=== PATIENT | male | born 1965 | race Caucasian/White ===

== ENCOUNTER → 2016-07-07 | Outpatient (REF) | payer MEDICARE, MEDICAID ==
[~2016-07-07] MED LIST: /ADVA50050 INH; /CELE20CA PO; /HCTZ25TA PO; /TIOT18INH INH; ADV500INH INH; ALBU17IN INH; AMIT25TA PO; AMIT25TA10 PO; ASPI81TA85 PO; ASTE0.15; CALC1TAB9 PO; CALC600T7 PO; COMBVENT INH; FLON0.05; HYDR25TA6 OR; LISI-538 PO; LISI20TA5 OR; LOPR50TA OR; LYRI75CA PO; MAGN1TAB25 PO; MAXA10TA15 PO; MAXA10TA20 PO; METF500T PO; METO25TA2 PO; METO50TA2 PO; MUCINEX PO; NIAS500T2 OR; OMEP40CA2 PO; OXYC1TAB23 PO; PRED10TA2 OR; PRIL20CA PO; ROBITUSSIN AC OR; SERT-138 PO; SIMV10TA2 OR; SIMV10TA2 PO; SPIR1CAP INH; TYLE325T5 PO; VENTAER IN; VICO5TAB16 PO; VITA100037 PO; VITA500T53 PO; VITAMIN D PO; VITMTA PO; WELL75TA PO; ZEST20TA8 PO; calcium OR; niaspan PO; spiriva; spiriva INH
== END ==
LOC: M SFHCPLAZ 16:18
PROVIDERS: ATTEND Family Medicine
DX: Z13.29 Encounter for screening for other suspected endocrine disorder (principal); Z79.899 Other long term (current) drug therapy

== ENCOUNTER → 2016-10-20 | Outpatient (REF) | payer MEDICARE, MEDICAID ==
[~2016-10-20] MED LIST changes: -METO50TA2 PO; +METO50TA7 PO; +TIZA2CAP3 PO
== END ==
LOC: M SFHCPLAZ 11:17
PROVIDERS: ATTEND Family Medicine
DX: D22.5 Melanocytic nevi of trunk (principal)

== ENCOUNTER 2016-11-17 07:00 | Outpatient (RCR) | payer MEDICARE ==
[~2016-11-17 07:00] MED LIST changes: -TIZA2CAP3 PO
[2016-11-23] MEDS ORDERED: TIZA2CAP3 PO (04:51)
[2016-11-23] MEDS ORDERED: OXYC1TAB23 PO (08:03)
== END 2016-11-22 ==
LOC: M PT 07:00
PROVIDERS: ATTEND Family Medicine
DX: Z51.89 Encounter for other specified aftercare (principal); M75.02 Adhesive capsulitis of left shoulder
CPT/HCPCS: 97110; 97140; 97162; G8984; G8985

== ENCOUNTER 2016-11-23 04:31 | Emergency (ER) | payer MEDICARE, OTHER ==
[~2016-11-23] VITALS: Ht 182.9 cm; Wt 112.3 kg
[2016-11-23 04:38] VITALS: BP 147/84
[2016-11-23] MEDS ORDERED: TIZA2CAP3 PO (04:51)
[2016-11-23] MEDS ORDERED: PERCOCET 5MG/325MG TAB PO ONE (06:45)
--- NOTE | 2016-11-23 07:40 | REPUSA ---
CLINICAL HISTORY: Neck pain. TECHNIQUE: Multiple axial images were obtained through the cervical spine. Images were also reconstru cted in coronal and sagittal planes. The study was performed without IV contrast. COMMENTS: There is no fracture or spondylolisthesis visualized. The paraspinal soft tissues are unremarkable. T here are no lytic or blastic lesions. Straightening of cervical lordosis is seen, suggesting muscular spasm. There is evidence of moderate multilevel disk disease, demonstrated by moderate osteophytosis and endplate sclerosis. Moderate multilevel degenerative disc disease more prominent at C4-C5, C5-C6 and C6-C7 levels. IMPRESSION: 1. No fracture or spondylolisthesis. 2. Straightening of cervical lordosis is seen, suggesting muscular spasm. 3. Multilevel spondylosis. Thank you for your kind referral of this patient.
[2016-11-23] MEDS ORDERED: OXYC1TAB23 PO (08:03)
--- NOTE | 2016-11-23 09:27 | REP ---
LEFT SHOULDER, THREE VIEWS: HISTORY: Pain. There is no acute fracture or dislocation. There is narrowing of the acromioclavicular joint with associated osteophyte formation. IMPRESSION: Degenerative change as described above. Signed by Jorge Salinas MD 11/23/2016 09:28 A
== END 2016-11-23 08:16 | disposition home or self-care (01) ==
LOC: M ED 04:31
DX: M62.830 Muscle spasm of back (principal); I10 Essential (primary) hypertension; F41.9 Anxiety disorder, unspecified; F33.9 Major depressive disorder, recurrent, unspecified; Z98.84 Bariatric surgery status; Z79.899 Other long term (current) drug therapy; Z79.51 Long term (current) use of inhaled steroids; Z88.5 Allergy status to narcotic agent; Z88.8 Allergy status to other drugs, medicaments and biological substances; F17.210 Nicotine dependence, cigarettes, uncomplicated
CPT/HCPCS: 72125; 73030; 96372; 99282; J3360

== ENCOUNTER 2017-01-02 20:58 | Inpatient (IN) | payer MEDICARE, OTHER ==
[~2017-01-02] VITALS: Ht 182.9 cm; Wt 115.4 kg
[2017-01-02] MEDS: ADVAIR HFA 230/21MCG INHALER INH SCH ×2 (20:00→21:00)
[~2017-01-02 20:58] MED LIST changes: +TIZA2CAP3 PO
[2017-01-02] MEDS ORDERED: KETOROLAC 30 MG/ML VIAL (J1885) IV ONE (22:00)
[2017-01-02 22:13] LABS: BASO # 0.1 10^3/uL (0.0-0.2); BASO % 0.8 % (0.0-1.0); EOS # 0.4 10^3/uL (0.0-0.50); EOS % 3.9 % (0.0-3.0); IMMATURE GRANULOCYTE % 0.5 % (0-0); LYMPH # 2.2 10^3/uL (1.5-4.5); MEAN CORPUSCULAR HEMOGLOBIN 31.7 pg (27.0-33.0); MONO # 0.8 10^3/uL (0.0-0.8); MONO % 7.9 % (0.0-5.0); NEUTROPHILS # 6.1 10^3/uL (1.8-7.7); NEUTROPHILS % 63.9 % (36.0-66.0); PLATELET COUNT, AUTOMATED 314 10^3/uL (150-450); RED CELL DISTRIBUTION WIDTH 13.2 % (11.5-14.5); WHITE BLOOD COUNT 9.6 10^3/uL (4.0-10.0)
[2017-01-02 22:17] LABS: INR 0.91
[2017-01-02 22:26] LABS: ANION GAP 7 MEQ/L (8-16); BLOOD UREA NITROGEN 7 MG/DL (7-18); CALCIUM LEVEL 8.8 MG/DL (8.5-10.1); CARBON DIOXIDE LEVEL 28 MEQ/L (21-32); CHLORIDE LEVEL 108 MEQ/L (98-107); CREATININE FOR GFR 0.64 MG/DL (0.70-1.30); GLOMERULAR FILTRATION RATE > 60.0 (>56); GLUCOSE, FASTING 85 MG/DL (70-105); POTASSIUM SERUM 3.6 MEQ/L (3.5-5.1); SODIUM LEVEL 143 MEQ/L (136-145)
[2017-01-02] MEDS ORDERED: ISOVUE-370 76% 100ML VIAL (Q9967) As Ordered ONE (22:34)
[2017-01-02] MEDS ORDERED: APIXABAN 5 MG TAB (ELIQUIS) PO ONE (23:15)
--- NOTE | 2017-01-02 23:20 | REPUSA ---
CT angiogram of the chest Clinical statement: Chest pain and shortness of breath. Technique: Multiple axial CT images were obtained from the thoracic inlet through the upper abdomen a fter a bolus administration of nonionic intravenous contrast. Coronal and sagittal reconstructions we re also obtained. Comparison: 12/22/2015. Findings: The pulmonary arteries are well-opacified with contrast. There is an intraluminal filling d efect in the right upper lobe pulmonary. The thoracic aorta is unremarkable. Thyroid gland is within normal limits. There is no thoracic lymphadenopathy. There is a moderate left-sided pleural effusion with left lower lobe infiltrate. Limited imaging of the upper abdomen is unremarkable. There are no s uspicious osseous lesions. Impression: 1. Subsegmental embolism in the right upper lobe pulmonary artery. 2. Moderate sized left lower lobe infiltrate and left lower lobe atelectasis. ER physician was notified of these findings at 11:10 PM on 01/02/2017.
[2017-01-02] MEDS ORDERED: MORPHINE 2 MG/ML 1ML SYRINGE IV ONE (23:30)
[2017-01-02] MEDS ORDERED: CALCTAB41 PO (23:32)
[2017-01-02] MEDS ORDERED: AMIT50TA PO (23:32)
[2017-01-02] MEDS ORDERED: ZANA4TAB PO (23:32)
[2017-01-02] MEDS ORDERED: LYRI200C PO (23:32)
[2017-01-03] VITALS (8 sets, daily range): BP systolic 114–149; BP diastolic 67–91
[2017-01-03 00:17] LABS: ABG HCO3 26.1 MEQ/L (22.0-26.0); ABG PARTIAL PRESSURE CO2 43.1 mmHg (35.0-45.0); ABG PARTIAL PRESSURE O2 68.2 mmHg (75.0-100.0); ABG STANDARD HCO3 25.3 MEQ/L (22.0-26.0); ABG TOTAL CO2 27.4 MEQ/L (22.0-29.0)
[2017-01-03] MEDS ORDERED: MAGNESIUM OXIDE 400 MG TAB (MAG-OX) PO STA (00:45)
[2017-01-03] MEDS ORDERED: ACETAMINOPHEN TAB 650MG DOSE (2X325MG) PO PRN (00:45)
[2017-01-03] MEDS ORDERED: tiZANidine 4 MG TAB PO PRN (00:45)
[2017-01-03] MEDS ORDERED: RIZATRIPTAN MLT 10 MG TAB PO PRN (00:45)
[2017-01-03] MEDS ORDERED: ONDANSETRON 4MG/2ML VIAL (J2405) IV PRN (00:45)
[2017-01-03] MEDS: AMITRIPTYLINE 50 MG TAB PO SCH ×2 (01:57→21:19)
[2017-01-03] MEDS: SIMVASTATIN 10 MG TAB PO SCH ×2 (01:57→21:20)
[2017-01-03] MEDS: LISINOPRIL 20 MG TAB PO SCH ×3 (01:57→21:19)
[2017-01-03] MEDS: CALCIUM/VITAMIN D 500 MG TAB PO SCH ×3 (01:58→21:19)
[2017-01-03] MEDS: CYANOCOBALAMIN 500 MCG TAB PO SCH ×2 (01:58→21:19)
[2017-01-03] MEDS: PREGABALIN 100 MG CAP (LYRICA) PO SCH ×3 (01:58→21:19)
[2017-01-03] MEDS: FLUTICASONE PROP 0.05% NASAL SPRAY 16 GM (FLONASE) SCH ×3 (03:27→21:21)
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
--- NOTE | 2017-01-03 07:22 | ECGEPIP ---
Stationary ECG Study [facility] - ED Test Date: 2017-01-02 Pat Name: GIACOMO MICHEL Department: Room: [place] [address] Gender: M Web Editor: : 1965 Requested By: JURGEN CRAMER Order Number: [id number] Reading MD: Jesse Lubin Measurements Intervals [place] Rate: 69 P: 45 KS: 182 QRS: 46 QRSD: 102 T: 42 QT: 360 QTc: 387 Interpretive Statements SINUS RHYTHM SIMILAR TO 12/23/15 Electronically Signed On 01-03-2017 7:22:33 EST by Jesse Lubin
[2017-01-03] MEDS ORDERED: ELIQ5TAB PO (07:26)
--- NOTE | 2017-01-03 07:26 | REP ---
Portable chest, 01/02/2017, 09:49 p.m., two views, and inspiration and expiration: Comparison is 12/27/2015. There is a left pleural effusion, not present previously. There is no pneumothorax. Lung ramires otherwise clear. Cardiac size is normal. The nino, mediastinum, bony thorax are unremarkable. Impression: Left pleural effusion. No pneumothorax. Signed by Mustapha Juarez MD 01/03/2017 07:17 A
[2017-01-03] MEDS: ADVAIR HFA 230/21MCG INHALER INH SCH ×2 (07:59→20:22)
[2017-01-03] MEDS: IPRATROPIUM 0.5MG/ALBUTEROL 2.5MG INH SOL UD 3ML (DUONEB)(J7620) NEB SCH ×3 (08:00→20:00)
[2017-01-03] MEDS: MULTIVITAMINS/MINERALS THERAP 1 TAB PO SCH (09:23)
[2017-01-03] MEDS: APIXABAN 5 MG TAB (ELIQUIS) PO SCH ×2 (09:24→21:19)
[2017-01-03] MEDS: OMEPRAZOLE 20 MG CAP PO SCH (09:24)
[2017-01-03] MEDS: LORATADINE 10 MG TAB PO SCH (09:24)
--- NOTE | 2017-01-03 09:39 | REP ---
BILATERAL LOWER EXTREMITY DUPLEX VEINS: HISTORY: Right lower leg swelling. RIGHT LOWER EXTREMITY: There are filling defects in the deep venous system. The deep venous system is patent. IMPRESSION: There is no deep venous thrombosis. LEFT LOWER EXTREMITY: There are no filling defects in the deep venous system. The deep venous system is patent. IMPRESSION: There is no deep venous thrombosis. Signed by Jorge Salinas MD 01/03/2017 10:30 A
[2017-01-03] MEDS ORDERED: IPRATROPIUM 0.5MG/ALBUTEROL 2.5MG INH SOL UD 3ML (DUONEB)(J7620) NEB PRN (10:00)
[2017-01-03] MEDS: TIOTROPIUM INHALER/CAPSULE (SPIRIVA) INH SCH (10:09)
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
[2017-01-03] MEDS: guaiFENesin ER 600 MG TAB PO SCH ×2 (11:22→21:19)
[2017-01-03] MEDS: KETOROLAC 30 MG/ML VIAL (J1885) IV PRN ×2 (16:33→21:22)
[2017-01-04] MEDS: IPRATROPIUM 0.5MG/ALBUTEROL 2.5MG INH SOL UD 3ML (DUONEB)(J7620) NEB SCH ×2 (01:33→07:07)
[2017-01-04 05:04] VITALS: BP 139/78
[2017-01-04 05:13] LABS: MEAN CORPUSCULAR HEMOGLOBIN 31.8 pg (27.0-33.0); MEAN CORPUSCULAR HGB CONC 33.1 g/dl (32.0-36.5); MEAN CORPUSCULAR VOLUME 95.9 fl (80.0-96.0); PLATELET COUNT, AUTOMATED 252 10^3/uL (150-450); RED CELL DISTRIBUTION WIDTH 13.2 % (11.5-14.5); WHITE BLOOD COUNT 7.2 10^3/uL (4.0-10.0)
[2017-01-04 05:27] LABS: ANION GAP 6 MEQ/L (8-16); BLOOD UREA NITROGEN 12 MG/DL (7-18); CALCIUM LEVEL 8.6 MG/DL (8.5-10.1); CARBON DIOXIDE LEVEL 29 MEQ/L (21-32); CHLORIDE LEVEL 108 MEQ/L (98-107); CREATININE FOR GFR 0.78 MG/DL (0.70-1.30); GLOMERULAR FILTRATION RATE > 60.0 (>56); GLUCOSE, FASTING 83 MG/DL (70-105); POTASSIUM SERUM 3.5 MEQ/L (3.5-5.1); SODIUM LEVEL 143 MEQ/L (136-145)
[2017-01-04] MEDS: KETOROLAC 30 MG/ML VIAL (J1885) IV PRN (06:02)
[2017-01-04] MEDS: TIOTROPIUM INHALER/CAPSULE (SPIRIVA) INH SCH (07:07)
[2017-01-04] MEDS: ADVAIR HFA 230/21MCG INHALER INH SCH (07:07)
[2017-01-04] MEDS ORDERED: POTASSIUM CHLORIDE 10 MEQ SR TABLET PO ONE (07:30)
[2017-01-04] MEDS: PREGABALIN 100 MG CAP (LYRICA) PO SCH (07:59)
[2017-01-04] MEDS: MULTIVITAMINS/MINERALS THERAP 1 TAB PO SCH (07:59)
[2017-01-04 08:00] VITALS: BP 146/74
[2017-01-04] MEDS: APIXABAN 5 MG TAB (ELIQUIS) PO SCH (08:00)
[2017-01-04] MEDS: guaiFENesin ER 600 MG TAB PO SCH (08:00)
[2017-01-04] MEDS: LISINOPRIL 20 MG TAB PO SCH (08:00)
[2017-01-04] MEDS: CALCIUM/VITAMIN D 500 MG TAB PO SCH (08:00)
[2017-01-04] MEDS: OMEPRAZOLE 20 MG CAP PO SCH (08:00)
[2017-01-04] MEDS: LORATADINE 10 MG TAB PO SCH (08:01)
[2017-01-04] MEDS: FLUTICASONE PROP 0.05% NASAL SPRAY 16 GM (FLONASE) SCH (08:01)
[2017-01-04] MEDS ORDERED: FLUTISP (09:00)
[2017-01-04] MEDS ORDERED: CLAR1TAB2 PO (09:00)
[2017-01-04] MEDS ORDERED: MUCI600T37 PO (09:00)
[2017-01-04] MEDS ORDERED: KETO10TAB PO (09:00)
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
== END 2017-01-04 11:06 | disposition home or self-care (01) | DRG 176 ==
LOC: M ED 20:58 → M ED INP 01-03 00:43 → M PCU 01-03 02:23
PROVIDERS: ATTEND Hospitalist
DX: I26.99 Other pulmonary embolism without acute cor pulmonale (principal); J44.9 Chronic obstructive pulmonary disease, unspecified; E11.9 Type 2 diabetes mellitus without complications; F32.9 Major depressive disorder, single episode, unspecified; F41.9 Anxiety disorder, unspecified; G47.33 Obstructive sleep apnea (adult) (pediatric); I10 Essential (primary) hypertension; M19.90 Unspecified osteoarthritis, unspecified site; Z79.899 Other long term (current) drug therapy; Z88.5 Allergy status to narcotic agent; Z88.8 Allergy status to other drugs, medicaments and biological substances; E66.9 Obesity, unspecified; F17.200 Nicotine dependence, unspecified, uncomplicated

== ENCOUNTER → 2017-01-09 | Outpatient (CLI) | payer OTHER ==
[~2017-01-09] MED LIST changes: +AMIT50TA PO; +CALCTAB41 PO; +CLAR1TAB2 PO; +ELIQ5TAB PO; +FLUTISP; +KETO10TAB PO; +LYRI200C PO; +MUCI600T37 PO; +ZANA4TAB PO
--- NOTE | 2017-01-09 17:23 | REP ---
MRI CERVICAL SPINE WITHOUT CONTRAST: HISTORY: Neck pain. COMPARISON: 12/24/2015 A disc bulge is present at the C3-4 level. There is minimal effacement of the thecal sac without spinal cord compression. The C3 neural foramina are patent. A disc bulge and small left paracentral disc protrusion with associated osteophyte formation are present at the C4-5 level. There is minimal spinal cord compression. Bilateral uncinate process hypertrophy is present. This produces moderate narrowing of the C4 neural foramina. A disc bulge with associated osteophyte formation is present at the C5-6 level. There is moderate effacement of the thecal sac without spinal cord compression. Bilateral uncinate process hypertrophy is present. This produces mild narrowing of the C5 neural foramina. A disc bulge with associated osteophyte formation is present at the C6-7 level. There is moderate effacement of the thecal sac without spinal cord compression. Bilateral uncinate process hypertrophy is present. This produces minimal and mild narrowing of the right and left C6 neural foramina respectively. A disc bulge with associated osteophyte formation is present at the C7-T1 level. There is minimal effacement of the thecal sac without spinal cord compression. Bilateral uncinate process hypertrophy is present. This produces mild and moderate narrowing of the right and left C7 neural foramina respectively. Disc bulges are present at the T12 and T2-3 levels. There is minimal effacement of the thecal sac without spinal cord compression. The neural foramina are patent on sagittal images. There is no other disc bulge or herniation. The remaining neural foramina are patent. The spinal cord is normal in signal intensity. The C4-5 through C7-T1 intervertebral discs are decreased in height consistent with disc degeneration. Increased signal intensity on T2-weighted images is present in the endplates of the C4 through T1 vertebral bodies. This represents degenerative change. IMPRESSION: There is cervical spondylosis at the C3-4 through C7-T1 levels, most significant at the C4-5 level where there is minimal spinal cord compression. The previously seen spinal cord compression at the C5-6 and C6-7 levels is not seen in the present examination. Unreviewed
== END ==
LOC: M PLARAD 14:29
PROVIDERS: ATTEND Family Medicine
DX: G89.21 Chronic pain due to trauma (principal); M75.02 Adhesive capsulitis of left shoulder; V89.2XXD Person injured in unspecified motor-vehicle accident, traffic, subsequent encounter; M47.12 Other spondylosis with myelopathy, cervical region; M47.13 Other spondylosis with myelopathy, cervicothoracic region; M50.21 Other cervical disc displacement, high cervical region; M50.221 Other cervical disc displacement at C4-C5 level; M50.223 Other cervical disc displacement at C6-C7 level

== ENCOUNTER → 2017-03-02 | Outpatient (CLI) | payer OTHER, MEDICARE | LOC: M RAD 12:57 | DX: M25.512 Pain in left shoulder (principal) ==

== ENCOUNTER 2017-06-12 19:33 | Emergency (ER) | payer MEDICARE, OTHER ==
[2017-06-12] MEDS: OXYCODONE/APAP 5MG/325MG(BULK FOR ED) 1 TABLET PO (21:34)
[2017-06-12] MEDS: AUGMENTIN 875 MG TAB PO (21:34)
== END 2017-06-12 21:42 | disposition home or self-care (01) ==
LOC: M ED 19:33
DX: K04.7 Periapical abscess without sinus (principal); I10 Essential (primary) hypertension; Z98.84 Bariatric surgery status; J44.9 Chronic obstructive pulmonary disease, unspecified; F17.200 Nicotine dependence, unspecified, uncomplicated; Z79.899 Other long term (current) drug therapy; Z88.5 Allergy status to narcotic agent; Z91.018 Allergy to other foods
CPT/HCPCS: 99282

== ENCOUNTER 2017-06-15 11:54 | Day surgery (SDC) | payer OTHER, MEDICARE ==
[2017-06-15] MEDS ORDERED: ROPIvacaine 0.5% 30 ML INJECTION (J2795 PER 1MG) (11:55)
[2017-06-15] MEDS ORDERED: LIDOCAINE 1% MDV 20ML VIAL (11:55)
[2017-06-15] MEDS ORDERED: dexameTHASONE 10 MG/1 ML VIAL PRES.FREE (J1100) (11:55)
[2017-06-15] MEDS ORDERED: LR 1,000 ML IV ×3 (12:00→16:45)
[2017-06-15] MEDS ORDERED: LIDOCAINE 1% MDV 20ML VIAL SQ (12:15)
[2017-06-15 12:32] LABS: BEDSIDE GLUCOSE 89 MG/DL (70-105)
[2017-06-15] MEDS ORDERED: MIDAZOLAM INJ 2 MG/2 ML VIAL (J2250) As Ordered ×2 (12:56→13:36)
[2017-06-15] MEDS ORDERED: fentaNYL 100 MCG/2 ML INJECTION (J3010) As Ordered (12:56)
[2017-06-15] MEDS: MIDAZOLAM INJ 2 MG/2 ML VIAL (J2250) IV (13:27)
[2017-06-15] MEDS: fentaNYL 100 MCG/2 ML INJECTION (J3010) IV (13:27)
[2017-06-15] MEDS ORDERED: LIDOCAINE 2% INJ 100 MG/5 ML SDV (FOR ANES.) As Ordered (13:35)
[2017-06-15] MEDS ORDERED: PROPOFOL 200 MG/20 ML VIAL As Ordered ×2 (13:35→15:39)
[2017-06-15] MEDS ORDERED: KETOROLAC 60 MG/2 ML VIAL (J1885) As Ordered (13:35)
[2017-06-15] MEDS ORDERED: dexameTHASONE 4 MG/ML 1ML VIAL (J1100) As Ordered (13:35)
[2017-06-15] MEDS ORDERED: ROCURONIUM BROMIDE 50 MG/5 ML VIAL As Ordered (13:35)
[2017-06-15] MEDS ORDERED: ONDANSETRON 4MG/2ML VIAL (J2405) As Ordered (13:35)
[2017-06-15] MEDS ORDERED: fentaNYL 250 MCG/5 ML INJECTION (J3010) As Ordered (13:36)
[2017-06-15] MEDS: EPINEPHrine 1MG/ML INJ 30ML MD-VIAL As Ordered (15:11)
[2017-06-15] MEDS ORDERED: ONDANSETRON 4MG/2ML VIAL (J2405) IV (16:30)
[2017-06-15] MEDS ORDERED: fentaNYL 100 MCG/2 ML INJECTION (J3010) IV (16:30)
[2017-06-15] MEDS ORDERED: HYDROmorphone HCL 1 MG/ML SYRINGE (J1170) IV (16:30)
[2017-06-15] MEDS ORDERED: PERCOCET 5MG/325MG TAB PO (16:30)
== END 2017-06-15 18:33 | disposition home or self-care (01) ==
LOC: M SDC 11:54
DX: S46.012A Strain of muscle(s) and tendon(s) of the rotator cuff of left shoulder, initial encounter (principal); S43.492A Other sprain of left shoulder joint, initial encounter; M75.42 Impingement syndrome of left shoulder; G47.33 Obstructive sleep apnea (adult) (pediatric); I10 Essential (primary) hypertension; E78.5 Hyperlipidemia, unspecified; M12.9 Arthropathy, unspecified; F41.9 Anxiety disorder, unspecified; F32.9 Major depressive disorder, single episode, unspecified; G62.9 Polyneuropathy, unspecified; F17.219 Nicotine dependence, cigarettes, with unspecified nicotine-induced disorders; E66.9 Obesity, unspecified; Z68.36 Body mass index [BMI] 36.0-36.9, adult; M54.2 Cervicalgia; M54.5 Low back pain; J44.9 Chronic obstructive pulmonary disease, unspecified; G43.909 Migraine, unspecified, not intractable, without status migrainosus; R06.83 Snoring; Z88.5 Allergy status to narcotic agent; Z88.8 Allergy status to other drugs, medicaments and biological substances; Z79.899 Other long term (current) drug therapy; Z95.818 Presence of other cardiac implants and grafts; Z85.9 Personal history of malignant neoplasm, unspecified; Z86.711 Personal history of pulmonary embolism; Z98.84 Bariatric surgery status; Y99.8 Other external cause status; V89.2XXA Person injured in unspecified motor-vehicle accident, traffic, initial encounter; Y93.89 Activity, other specified; Y92.89 Other specified places as the place of occurrence of the external cause
CPT/HCPCS: 29827

== ENCOUNTER → 2017-07-17 | Outpatient (REF) | payer MEDICARE | LOC: M SFHCPLAZ 12:02 | DX: Z98.84 Bariatric surgery status (principal); Z13.1 Encounter for screening for diabetes mellitus; Z53.8 Procedure and treatment not carried out for other reasons ==

== ENCOUNTER → 2017-07-28 | Outpatient (REF) | payer MEDICARE ==
[2017-07-28 10:26] LABS: HEMATOCRIT 39.6 % (42.0-52.0); HEMOGLOBIN 12.9 g/dl (13.5-17.5); MEAN CORPUSCULAR HEMOGLOBIN 31.3 pg (27.0-33.0); MEAN CORPUSCULAR HGB CONC 32.6 g/dl (32.0-36.5); MEAN CORPUSCULAR VOLUME 96.1 fl (80.0-96.0); PLATELET COUNT, AUTOMATED 266 10^3/uL (150-450); RED BLOOD COUNT 4.12 10^6/uL (4.30-6.10); RED CELL DISTRIBUTION WIDTH 14.9 % (11.5-14.5); WHITE BLOOD COUNT 14.9 10^3/uL (4.0-10.0)
[2017-07-28 11:15] LABS: ALBUMIN 3.2 GM/DL (3.2-5.2); ALKALINE PHOSPHATASE 82 U/L (45-117); ALT/SGPT 23 U/L (12-78); ANION GAP 7 MEQ/L (8-16); AST/SGOT 21 U/L (7-37); BILIRUBIN,TOTAL 0.6 MG/DL (0.2-1.0); BLOOD UREA NITROGEN 17 MG/DL (7-18); CALCIUM LEVEL 8.4 MG/DL (8.5-10.1); CARBON DIOXIDE LEVEL 27 MEQ/L (21-32); CHLORIDE LEVEL 106 MEQ/L (98-107); GLOMERULAR FILTRATION RATE > 60.0 (>56); GLUCOSE, FASTING 82 MG/DL (70-100); SODIUM LEVEL 140 MEQ/L (136-145); TOTAL PROTEIN 6.4 GM/DL (6.4-8.2)
[2017-07-28 11:24] LABS: ESTIMATED AVERAGE GLUCOSE 97 MG/DL (60-110)
== END ==
LOC: M SFHCPLAZ 08:31
DX: Z98.84 Bariatric surgery status (principal); Z13.1 Encounter for screening for diabetes mellitus
CPT/HCPCS: 80053

== ENCOUNTER → 2017-09-18 | Outpatient (REF) | payer MEDICARE ==
[2017-09-18 13:27] LABS: HEMATOCRIT 43.1 % (42.0-52.0); HEMOGLOBIN 14.3 g/dl (13.5-17.5); MEAN CORPUSCULAR HEMOGLOBIN 31.7 pg (27.0-33.0); MEAN CORPUSCULAR HGB CONC 33.2 g/dl (32.0-36.5); MEAN CORPUSCULAR VOLUME 95.6 fl (80.0-96.0); PLATELET COUNT, AUTOMATED 295 10^3/uL (150-450); RED BLOOD COUNT 4.51 10^6/uL (4.30-6.10); RED CELL DISTRIBUTION WIDTH 14.6 % (11.5-14.5); WHITE BLOOD COUNT 7.7 10^3/uL (4.0-10.0)
[2017-09-18 14:13] LABS: FOLATE 13.7 NG/ML; VITAMIN B12 LEVEL > 2000 PG/ML
[2017-09-18 14:14] LABS: FERRITIN 128 NG/ML (26-388); IRON (FE) 85 UG/DL (65-175); PERCENT SATURATION 25.2 % (19.7-50.0); TOTAL IRON BINDING CAPACITY 337 UG/DL (250-450)
== END ==
LOC: M SFHCPLAZ 11:12
DX: D64.9 Anemia, unspecified (principal)
CPT/HCPCS: 82746

== ENCOUNTER 2018-01-03 21:25 | Emergency (ER) | payer MEDICARE ==
[2018-01-03] MEDS: NS 1,000 ML IV (23:09)
[2018-01-03 23:13] LABS: BASO # 0.1 10^3/uL (0.0-0.2); BASO % 0.6 % (0.0-1.0); EOS # 0.1 10^3/uL (0.0-0.50); EOS % 0.9 % (0.0-3.0); HEMATOCRIT 46.9 % (42.0-52.0); IMMATURE GRANULOCYTE % 0.5 % (0-3.0); LYMPH # 2.4 10^3/uL (1.5-4.5); LYMPH % 27.9 % (24.0-44.0); MEAN CORPUSCULAR HEMOGLOBIN 32.5 pg (27.0-33.0); MEAN CORPUSCULAR HGB CONC 34.1 g/dl (32.0-36.5); MEAN CORPUSCULAR VOLUME 95.1 fl (80.0-96.0); MONO # 0.9 10^3/uL (0.0-0.8); MONO % 10.4 % (0.0-5.0); NEUTROPHILS # 5.1 10^3/uL (1.8-7.7); NEUTROPHILS % 59.7 % (36.0-66.0); PLATELET COUNT, AUTOMATED 294 10^3/uL (150-450); RED BLOOD COUNT 4.93 10^6/uL (4.30-6.10); RED CELL DISTRIBUTION WIDTH 14.6 % (11.5-14.5); WHITE BLOOD COUNT 8.5 10^3/uL (4.0-10.0)
[2018-01-03 23:25] LABS: APPEARANCE, URINE CLEAR (CLEAR); BACTERIA, URINE AUTO NEGATIVE (NEGATIVE); BILIRUBIN, URINE AUTO NEGATIVE (NEGATIVE); BLOOD, URINE BLOOD NEGATIVE (NEGATIVE); COLOR, URINE YELLOW (YELLOW); GLUCOSE, URINE (UA) AUTO NEGATIVE (NEGATIVE); KETONE, URINE AUTO NEGATIVE (NEGATIVE); LEUKOCYTE ESTERASE, URINE AUTO TRACE (NEGATIVE); MUCUS, URINE SMALL (NEGATIVE); NITRITE, URINE AUTO NEGATIVE (NEGATIVE); PROTEIN, URINE AUTO NEGATIVE (NEGATIVE); RBC, URINE AUTO 3 /HPF (0-3); SPECIFIC GRAVITY URINE AUTO 1.014 (1.002-1.035); SQUAMOUS EPITHELIAL CELL UR AU 1 /HPF (0-6); WBC, URINE AUTO 7 /HPF (0-3)
[2018-01-03] MEDS: ONDANSETRON 4MG/2ML VIAL (J2405) IV (23:31)
[2018-01-03] MEDS: PANTOPRAZOLE 40MG INJ (PROTONIX) (C9113) IV (23:31)
[2018-01-03] MEDS: GI COCKTAIL 50ML BTL(HYOSCYAMINE/MAALOX/LIDOCAINE VISCOUS)(1:3:1) PO (23:31)
[2018-01-03] MEDS: GASTROGRAFIN SOLUTION 30ML PO (23:42)
[2018-01-03] MEDS: IPRATROPIUM 0.5MG/ALBUTEROL 2.5MG INH SOL UD 3ML (DUONEB)(J7620) NEB (23:52)
[2018-01-03 23:57] LABS: ALBUMIN 3.8 GM/DL (3.2-5.2); ALBUMIN/GLOBULIN RATIO 0.97 (1.00-1.93); ALKALINE PHOSPHATASE 106 U/L (45-117); ALT/SGPT 32 U/L (12-78); ANION GAP 7 MEQ/L (8-16); AST/SGOT 24 U/L (7-37); BILIRUBIN,TOTAL 0.6 MG/DL (0.2-1.0); BLOOD UREA NITROGEN 5 MG/DL (7-18); CARBON DIOXIDE LEVEL 28 MEQ/L (21-32); CHLORIDE LEVEL 106 MEQ/L (98-107); CREATININE FOR GFR 0.75 MG/DL (0.70-1.30); GLOMERULAR FILTRATION RATE > 60.0 (>56); GLUCOSE, FASTING 103 MG/DL (70-100); LIPASE 102 U/L (73-393); POTASSIUM SERUM 3.6 MEQ/L (3.5-5.1); SODIUM LEVEL 141 MEQ/L (136-145); TOTAL PROTEIN 7.7 GM/DL (6.4-8.2)
[2018-01-04] MEDS: GASTROGRAFIN SOLUTION 30ML PO (00:22)
[2018-01-04 01:08] LABS: CPK CREATINE PHOSPHOKINASE 180 U/L (39-308); MB/CK RELATIVE INDEX 1.89 (< OR =4); NT-PRO BNP 110 PG/ML (<125); TROPONIN I < 0.02 NG/ML (< 0.10)
[2018-01-04] MEDS ORDERED: ISOVUE-370 76% 100ML VIAL (Q9967) As Ordered (01:09)
[2018-01-04] MEDS: IPRATROPIUM 0.5MG/ALBUTEROL 2.5MG INH SOL UD 3ML (DUONEB)(J7620) NEB (01:10)
[2018-01-04] MEDS: LevoFLOXacin 750 MG TABLET PO (02:15)
== END 2018-01-04 02:19 | disposition home or self-care (01) ==
LOC: M ED 01-04 02:19
DX: J40 Bronchitis, not specified as acute or chronic (principal); E11.9 Type 2 diabetes mellitus without complications; J44.9 Chronic obstructive pulmonary disease, unspecified; G62.9 Polyneuropathy, unspecified; Z98.84 Bariatric surgery status; Z79.899 Other long term (current) drug therapy; Z88.5 Allergy status to narcotic agent; Z91.018 Allergy to other foods; F17.210 Nicotine dependence, cigarettes, uncomplicated
CPT/HCPCS: C9113

== ENCOUNTER → 2018-04-26 | Outpatient (REF) | payer MEDICARE ==
[~2018-04-26] MED LIST changes: +AMIT10TA PO; +AUGM875T28 PO; +CLAR10CA3 PO; +DULO1CAP PO; +LEVA750T7 PO; +LISI10TA4 PO; +LYRI300C PO; +PERC5TAB12 PO; +TIZA2CAP PO; -TIZA2CAP3 PO; +TRAM50TA2 PO
[2018-04-26 12:24] LABS: BASO # 0.1 10^3/uL (0.0-0.2); EOS # 0.1 10^3/uL (0.0-0.50); EOS % 1.2 % (0.0-3.0); HEMATOCRIT 43.2 % (42.0-52.0); HEMOGLOBIN 14.3 g/dl (13.5-17.5); LYMPH # 1.9 10^3/uL (1.5-4.5); LYMPH % 31.2 % (24.0-44.0); MEAN CORPUSCULAR HEMOGLOBIN 32.6 pg (27.0-33.0); MEAN CORPUSCULAR HGB CONC 33.1 g/dl (32.0-36.5); MEAN CORPUSCULAR VOLUME 98.4 fl (80.0-96.0); MONO # 0.7 10^3/uL (0.0-0.8); MONO % 11.9 % (0.0-5.0); NEUTROPHILS # 3.3 10^3/uL (1.8-7.7); NEUTROPHILS % 54.2 % (36.0-66.0); PLATELET COUNT, AUTOMATED 243 10^3/uL (150-450); RED BLOOD COUNT 4.39 10^6/uL (4.30-6.10)
[2018-04-26 13:15] LABS: CHOLESTEROL RISK RATIO 3.147 (<5); FREE T4 1.14 NG/DL (0.76-1.46); THYROID STIMULATING HORMONE 1.24 uIU/ML (0.358-3.740); TOTAL 25(OH) VITAMIN D 38.6 NG/ML (30.0-100.0)
== END ==
LOC: M SFHCPLAZ 09:53
PROVIDERS: ATTEND Family Medicine
DX: Z13.21 Encounter for screening for nutritional disorder (principal); R53.82 Chronic fatigue, unspecified; E78.5 Hyperlipidemia, unspecified

== ENCOUNTER 2018-06-29 11:06 | Day surgery (SDC) | payer MEDICARE ==
[~2018-06-29] VITALS: Ht 180.3 cm; Wt 117.4 kg
[~2018-06-29 11:06] MED LIST changes: -/ADVA50050 INH; -/CELE20CA PO; -/HCTZ25TA PO; -/TIOT18INH INH; +ADVA1AER2 INH; +ALBU8.5H IH; +CELE1CAP4 PO; +HYDR-3644 PO; -MAGN1TAB25 PO; +MAGN1TAB26 PO; +RIZA10TA4 PO; +VITA500T17 PO; -VITA500T53 PO
[2018-06-29] MEDS ORDERED: ALBUTEROL SULFATE 2.5 MG/0.5 ML INH NEB SOLN As Ordered ONE (12:55)
[2018-06-29] MEDS ORDERED: PROPOFOL 200 MG/20 ML VIAL As Ordered ONE (13:33)
[2018-06-29] MEDS ORDERED: LIDOCAINE 2% INJ 100 MG/5 ML SDV (FOR ANES.) As Ordered ONE (13:33)
[2018-06-29] MEDS ORDERED: fentaNYL 100 MCG/2 ML INJECTION (J3010) As Ordered ONE (13:47)
--- NOTE | 2018-06-29 14:29 | ROOR ---
Patient Name: Valentino Odell Procedure Date: 06/29/2018 2:09 PM Date of : 1965 Age: 52 Room: [facility] Gender: Male Note Status: Finalized Procedure: Upper GI endoscopy Indications: Dyspepsia, Heartburn Providers: Karsten RODRIGUEZ MD Referring MD: ANY JAIN Uzair [facility] Anabel Requesting Provider: Medicines: Monitored Anesthesia Care Complications: No immediate complications. Procedure: Pre-Anesthesia Assessment: - The heart rate, respiratory rate, oxygen saturations, blood pressure, adequacy of pulmonary ventilation, and response to care were monitored throughout the procedure. The Endoscope was introduced through the mouth, and advanced to the jejunum. The upper GI endoscopy was accomplished without difficulty. The patient tolerated the procedure well. Findings: The examined esophagus was normal. Evidence of a Flo-en-Y gastrojejunostomy was found. The gastrojejunal anastomosis was characterized by healthy appearing mucosa. The exam of the stomach was otherwise normal. The examined jejunum was normal. Impression: - Normal esophagus. - Flo-en-Y gastrojejunostomy with widely patent gastrojejunal anastomosis characterized by healthy appearing mucosa. - Normal examined jejunum. - No specimens collected. Recommendation: - Observe patient's clinical course. - Continue present medications. - Return to referring physician as previously scheduled. Karsten Rodriguez MD Karsten RODRIGUEZ MD 06/29/2018 2:29:40 PM Electronically signed by Karsten RODRIGUEZ MD Number of Addenda: 0 Note Initiated On: 06/29/2018 2:09 PM Estimated Blood Loss: Estimated blood loss: none.
--- NOTE | 2018-06-29 14:56 | ROOR ---
Patient Name: Valentino Odell Procedure Date: 06/29/2018 2:10 PM Date of : 1965 Age: 52 Room: [facility] Gender: Male Note Status: Finalized Procedure: Colonoscopy Indications: High risk colon cancer surveillance: Personal history of colonic polyps Providers: Karsten RODRIGUEZ MD Referring MD: ANY [facility] Anabel Requesting Provider: Medicines: Monitored Anesthesia Care Complications: No immediate complications. Procedure: Pre-Anesthesia Assessment: - The heart rate, respiratory rate, oxygen saturations, blood pressure, adequacy of pulmonary ventilation, and response to care were monitored throughout the procedure. The Colonoscope was introduced through the anus and advanced to the terminal ileum, with identification of the appendiceal orifice and IC valve. The colonoscopy was performed without difficulty. The patient tolerated the procedure well. The quality of the bowel preparation was fair. Findings: The perianal and digital rectal examinations were normal. Seven sessile polyps were found in the sigmoid colon and descending colon. The polyps were 4 to 8 mm in size. These polyps were removed with a cold snare. Resection and retrieval were complete. The exam was otherwise without abnormality on direct and retroflexion views. (EXAM: Complete, PREP: Fair/Adequate) Impression: - (EXAM: Complete, PREP: Fair/Adequate) - Seven 4 to 8 mm polyps in the sigmoid colon and in the descending colon, removed with a cold snare. Resected and retrieved. - The examination was otherwise normal on direct and retroflexion views. Recommendation: - Repeat colonoscopy in 2 years for surveillance. - Repeat colonoscopy in 2 years because the bowel preparation was suboptimal. Karsten Rodriguez MD Karsten RODRIGUEZ MD 06/29/2018 2:55:46 PM Electronically signed by Karsten RODRIGUEZ MD Number of Addenda: 0 Note Initiated On: 06/29/2018 2:10 PM Estimated Blood Loss: Estimated blood loss: none.
[2018-06-29 15:24] VITALS: BP 124/66
== END 2018-06-29 15:28 | disposition home or self-care (01) ==
LOC: M OPP 11:06
PROVIDERS: ATTEND Internal Medicine Gastroenterology
DX: D12.4 Benign neoplasm of descending colon (principal); D12.5 Benign neoplasm of sigmoid colon; R10.13 Epigastric pain; R12 Heartburn; Z86.010 Personal history of colon polyps; Z98.84 Bariatric surgery status
CPT/HCPCS: 43235; 45385; 88305; J3010

== ENCOUNTER → 2018-08-31 | Outpatient (REF) | payer MEDICARE ==
[~2018-08-31] MED LIST changes: -DULO1CAP PO; +DULO1CAP4 PO
[2018-08-31 09:55] LABS: BLOOD UREA NITROGEN 5 MG/DL (7-18); CALCIUM LEVEL 8.5 MG/DL (8.5-10.1); CARBON DIOXIDE LEVEL 29 MEQ/L (21-32); CHLORIDE LEVEL 116 MEQ/L (98-107); CREATININE FOR GFR 0.79 MG/DL (0.70-1.30); GLOMERULAR FILTRATION RATE > 60.0 (>56); GLUCOSE, FASTING 85 MG/DL (70-100); POTASSIUM SERUM 3.2 MEQ/L (3.5-5.1); SODIUM LEVEL 136 MEQ/L (136-145)
[2018-08-31 10:29] LABS: MALB URINE SIEMENS 11.2 MG/L; MAU/CREAT RATIO 7.4 MCG/MG (0.0-30.0)
== END ==
LOC: M SFHCPLAZ 08:07
PROVIDERS: ATTEND Family Medicine
DX: E11.9 Type 2 diabetes mellitus without complications (principal); I10 Essential (primary) hypertension

== ENCOUNTER → 2018-10-13 | Outpatient (CLI) | payer MEDICARE ==
[2018-10-13 10:07] LABS: BASO # 0.1 10^3/uL (0.0-0.2); BASO % 0.8 % (0.0-1.0); EOS # 0.3 10^3/uL (0.0-0.50); EOS % 2.9 % (0.0-3.0); HEMATOCRIT 42.9 % (42.0-52.0); HEMOGLOBIN 14.6 g/dl (13.5-17.5); LYMPH # 4.3 10^3/uL (1.5-4.5); LYMPH % 42.2 % (24.0-44.0); MEAN CORPUSCULAR HEMOGLOBIN 31.9 pg (27.0-33.0); MEAN CORPUSCULAR VOLUME 93.9 fl (80.0-96.0); MONO # 0.7 10^3/uL (0.0-0.8); MONO % 7.3 % (0.0-5.0); NEUTROPHILS # 4.7 10^3/uL (1.8-7.7); NEUTROPHILS % 46.5 % (36.0-66.0); PLATELET COUNT, AUTOMATED 291 10^3/uL (150-450); RED BLOOD COUNT 4.57 10^6/uL (4.30-6.10); WHITE BLOOD COUNT 10.2 10^3/uL (4.0-10.0)
[2018-10-13 10:26] LABS: BLOOD UREA NITROGEN 8 MG/DL (7-18); CALCIUM LEVEL 8.8 MG/DL (8.5-10.1); CARBON DIOXIDE LEVEL 30 MEQ/L (21-32); CHLORIDE LEVEL 109 MEQ/L (98-107); CREATININE FOR GFR 0.75 MG/DL (0.70-1.30); GLOMERULAR FILTRATION RATE > 60.0 (>56); GLUCOSE, FASTING 84 MG/DL (70-100); POTASSIUM SERUM 3.7 MEQ/L (3.5-5.1); SODIUM LEVEL 141 MEQ/L (136-145)
--- NOTE | 2018-10-13 10:52 | REP ---
REASON FOR EXAM: Pain. There are no prior exams for comparison. I have been given no history of trauma whatsoever. There is a dextroconvex curve. There is degenerative disc space narrowing at every level. There is anterior lipping at every level. The pedicles appear to be intact bilaterally. Vertebral body height appears to be within normal limits. IMPRESSION: Chronic changes. Electronically Signed by Eriberto Barney DO 10/13/2018 12:39 P
--- NOTE | 2018-10-13 10:53 | REP ---
REASON: Pain. There are no priors for comparison. Complete syndesmophyte formation is seen on the left at T11-12 with partial syndesmophyte formation seen on the right at that level. Partial syndesmophyte formation is seen bilaterally at T12-L1. There is complete syndesmophyte seen on the left at L2-3. Complete syndesmophyte formation is also seen on the left at L3-4. Other sites show partial syndesmophyte formation bilaterally. There is advanced disc space narrowing at every level. There is anterior lipping at every level. There are degenerative facet joint changes seen bilaterally at every level, heaviest at L5-S1. There is a slight anterior wedge deformity seen involving L1. IMPRESSION: Chronic changes as described above. Electronically Signed by Eriberto Barney DO 10/13/2018 12:39 P
--- NOTE | 2018-10-13 11:01 | REP ---
REASON FOR THIS EXAMINATION: Pain after trauma. There is advanced chronic change seen with disc space narrowing, particularly at C4-5 through C7-T1. Hypertrophic degenerative facet and uncovertebral joint changes are present at every level bilaterally. There is a cervical kyphotic curve, which is abnormal. Only AP and lateral views were obtained. I cannot rule out a fracture. IMPRESSION: Limited examination showing chronic changes. I cannot rule out a fracture. CT examination of the cervical spine is recommended to rule out a fracture since the patient has been involved in trauma. A stat report was generated at the time of this dictation and a note was placed in the patient's [employer] recommending CT to rule out a fracture. In addition, a phone call was placed to Daquan Dimas informing her the necessity of obtaining CT to rule out a fracture. Electronically Signed by Eriberto Barney DO 10/13/2018 12:39 P
== END ==
LOC: M LAB 09:36
PROVIDERS: ATTEND Student in an Organized Health Care Education/Training Program
DX: M54.6 Pain in thoracic spine (principal)

== ENCOUNTER 2018-10-20 10:14 | Emergency (ER) | payer MEDICARE ==
[~2018-10-20] VITALS: Ht 182.9 cm; Wt 118.2 kg
[2018-10-20 11:06] LABS: BASO # 0.1 10^3/uL (0.0-0.2); BASO % 0.7 % (0.0-1.0); EOS # 0.3 10^3/uL (0.0-0.50); EOS % 3.3 % (0.0-3.0); HEMATOCRIT 44.6 % (42.0-52.0); HEMOGLOBIN 15.2 g/dl (13.5-17.5); LYMPH # 2.8 10^3/uL (1.5-4.5); LYMPH % 31.9 % (24.0-44.0); MEAN CORPUSCULAR HEMOGLOBIN 32.4 pg (27.0-33.0); MEAN CORPUSCULAR HGB CONC 34.1 g/dl (32.0-36.5); MEAN CORPUSCULAR VOLUME 95.1 fl (80.0-96.0); MONO # 0.8 10^3/uL (0.0-0.8); MONO % 8.8 % (0.0-5.0); NEUTROPHILS # 4.9 10^3/uL (1.8-7.7); PLATELET COUNT, AUTOMATED 300 10^3/uL (150-450); RED BLOOD COUNT 4.69 10^6/uL (4.30-6.10); WHITE BLOOD COUNT 8.8 10^3/uL (4.0-10.0)
[2018-10-20 11:33] LABS: ALBUMIN 3.3 GM/DL (3.2-5.2); ALT/SGPT 37 U/L (12-78); BILIRUBIN,DIRECT 0.2 MG/DL (0.0-0.2); BILIRUBIN,TOTAL 0.4 MG/DL (0.2-1.0); BLOOD UREA NITROGEN 6 MG/DL (7-18); CALCIUM LEVEL 9.2 MG/DL (8.5-10.1); CARBON DIOXIDE LEVEL 28 MEQ/L (21-32); CHLORIDE LEVEL 106 MEQ/L (98-107); CK-MB VALUE MASS 2.8 NG/ML (<3.6); CPK CREATINE PHOSPHOKINASE 145 U/L (39-308); CREATININE FOR GFR 0.69 MG/DL (0.70-1.30); GLOMERULAR FILTRATION RATE > 60.0 (>56); GLUCOSE, FASTING 95 MG/DL (70-100); LIPASE 56 U/L (73-393); MB/CK RELATIVE INDEX 1.93 (< OR =4); POTASSIUM SERUM 3.8 MEQ/L (3.5-5.1); SODIUM LEVEL 140 MEQ/L (136-145); TOTAL PROTEIN 7.5 GM/DL (6.4-8.2); TROPONIN I < 0.02 NG/ML (< 0.10)
[2018-10-20] MEDS ORDERED: ISOVUE-370 76% 100ML VIAL (Q9967) As Ordered ONE (11:58)
--- NOTE | 2018-10-20 12:42 | REP ---
PORTABLE CHEST X-RAY: Two views. HISTORY: Chest pain. COMPARISON CHEST X-RAY: January 03, 2018. FINDINGS: EKG monitoring electrodes overlie the chest. The pleural angles are blunted bilaterally. There is some pleural thickening along each lateral chest wall. The findings are similar to the January 03, 2018 most recent prior study. The heart does not appear to be enlarged. Pulmonary vasculature is not increased. There is mild bilateral pleuroparenchymal fibrosis. No acute infiltrate is seen. IMPRESSION: Blunting of the pleural angles and bilateral pleuroparenchymal fibrosis in the bases. Findings similar to January 03, 2018. Otherwise no acute disease. Electronically Signed by Davion Arango MD 10/20/2018 04:40 P
--- NOTE | 2018-10-20 13:02 | REP ---
CT of the chest with IV contrast, CT pulmonary angiography: Comparison is 01/04/2018. There are no emboli in the pulmonary trunk or central pulmonary arteries. There are no emboli in the pulmonary lobe or segment branches. There are bilateral pleural effusions with compression atelectasis of the adjacent lung. There are no masses or nodules. There is chronic scarring inferiorly in the lingula, unchanged. There is no mediastinal, hilar or axillary lymph node enlargement. The thoracic aorta is unremarkable. Cardiac size is normal. There is no pericardial effusion. The visualized upper abdominal structures are unremarkable except for surgical clips suggestive of bariatric surgery. This is unchanged. Impression: There are no pulmonary emboli. There are bilateral pleural effusions with atelectasis in the adjacent lung. Bariatric surgery. Electronically Signed by Mustapha Juarez MD 10/20/2018 12:54 P
[2018-10-20] MEDS ORDERED: FUROSEMIDE 40 MG/4 ML VIAL (J1940) IV ONE (13:15)
[2018-10-20] MEDS ORDERED: LASI20TA3 PO (14:52)
[2018-10-20] MEDS ORDERED: K-TA10TA PO (14:53)
[2018-10-20 15:13] VITALS: BP 146/85
--- NOTE | 2018-10-21 20:36 | ECGEPIP ---
[facility] - ED Test Date: 2018-10-20 Pat Name: GIACOMO MICHEL Department: Room: - Gender: Male [employer]: : 1965 Requested By: Jesse Taylor Order Number: [id number] Reading MD: Elma Avila Measurements Intervals [place] Rate: 63 P: 18 DE: 156 QRS: 25 QRSD: 104 T: 17 QT: 379 QTc: 390 Interpretive Statements SINUS RHYTHM Electronically Signed on 10-21-2018 20:36:45 EDT by Elma Avila
== END 2018-10-20 15:15 | disposition home or self-care (01) ==
LOC: M ED 10:14
DX: J90 Pleural effusion, not elsewhere classified (principal); I50.9 Heart failure, unspecified; E11.9 Type 2 diabetes mellitus without complications; I10 Essential (primary) hypertension; E78.5 Hyperlipidemia, unspecified; J44.9 Chronic obstructive pulmonary disease, unspecified; G47.30 Sleep apnea, unspecified; M19.90 Unspecified osteoarthritis, unspecified site; F32.9 Major depressive disorder, single episode, unspecified; F41.9 Anxiety disorder, unspecified; Z98.84 Bariatric surgery status; Z87.891 Personal history of nicotine dependence; Z79.899 Other long term (current) drug therapy; Z91.018 Allergy to other foods; Z88.5 Allergy status to narcotic agent
CPT/HCPCS: 71045; 71275; 80048; 80076; 82550; 82553; 83690; 84484; 85025; 85379; 93005; 93041; 94760; 96374; 99285; J1940; Q9967

== ENCOUNTER → 2018-10-28 | Outpatient (CLI) | payer MEDICARE ==
[~2018-10-28] MED LIST changes: +K-TA10TA PO; +LASI20TA3 PO; -OMEP40CA2 PO; +OMEP40CA97 PO; -RIZA10TA4 PO; +RIZA10TA58 PO; +SIMV10TA21 PO
--- NOTE | 2018-10-28 10:01 | REP ---
CT STUDY OF THE CERVICAL SPINE WITHOUT CONTRAST: HISTORY: Left sided numbness. TECHNIQUE: Helical scanning is acquired and overlapping 2 mm high resolution axial images were generated and reviewed at bone and soft tissue window settings. Coronal and sagittal multiplanar re-formations images are generated. CT FINDINGS: There is straightening and slight reversal of the normal cervical lordosis. There are degenerative disc disease changes at each level from C4-5 through C7-T1 with disc space narrowing, anterior and posterior osteophytic ridging and reactive sclerosis and spur formation. There are mild osteoarthritic facet changes diffusely in the mid cervical spine. No malalignment. At C2-3, there is mild central disc bulging. No other finding. At C3-4, there is mild central disc bulging. Mild facet hypertrophy is present. At C4-5, there is a calcified left posterior disc protrusion. The remainder of the disc is bulging and this produces central canal stenosis. There is uncovertebral spurring producing neural foraminal narrowing on the left. Facet hypertrophy is noted bilaterally. At C5-C6, there is diffuse disc bulging. Prominent uncovertebral spurs are noted on the left producing neural foraminal narrowing. Minimal spurring is present on the right. There is mild central canal stenosis is C5-6 as well. At C6-C7, there is diffuse disc bulging and posterior osteophytic ridging. This is more pronounced on the left as well. The canal appears to be somewhat narrow at this level also. At C7-T1, there is diffuse disc bulging and posterior osteophytic ridging. Minimal uncovertebral spurring is present bilaterally, left more so than right. IMPRESSION: Advanced degenerative spondylosis. Mild central canal stenosis at C4-5 through C6-7. Multilevel neural foraminal narrowing more prominent on the left. Electronically Signed by Davion Arango MD 10/28/2018 11:05 A
--- NOTE | 2018-10-28 10:34 | REP ---
DUPLEX CAROTID SONOGRAPHY: HISTORY: Left-sided numbness. Rule out TIA. FINDINGS: Antegrade flow was observed in both vertebral arteries. RIGHT CAROTID: The right common carotid artery is unremarkable on two-dimensional scanning. There is minimal soft plaquing in the right carotid bulb. Color flow and spectral Doppler interrogation are unremarkable however. Velocity Chart Right Carotid: PSV EDV Right CCA 107 cm/s Right ICA 72 cm/s 26 cm/s Right ECA 92 cm/s Right ICA/CCA ratio normal 0.7. IMPRESSION: Less than 50% category narrowing in the right ICA by Doppler velocity criteria. LEFT CAROTID: The left common carotid artery is unremarkable on two-dimensional scanning. There is minimal mixed plaquing in the left carotid bulb. Color flow and spectral Doppler interrogation are unremarkable on the left. Velocity Chart Left Carotid: PSV EDV Left CCA 139 cm/s Left ICA 63 cm/s 20 cm/s Left ECA 86 cm/s Left ICA/CCA ratio normal 0.5. IMPRESSION: Less than 50% category narrowing in the left ICA by Doppler velocity criteria. Electronically Signed by Davion Arango MD 10/28/2018 11:05 A
== END ==
LOC: M RAD 09:16
PROVIDERS: ATTEND Student in an Organized Health Care Education/Training Program
DX: R20.0 Anesthesia of skin (principal); M50.21 Other cervical disc displacement, high cervical region; M50.221 Other cervical disc displacement at C4-C5 level; M50.222 Other cervical disc displacement at C5-C6 level; M50.223 Other cervical disc displacement at C6-C7 level; M50.23 Other cervical disc displacement, cervicothoracic region; M47.812 Spondylosis without myelopathy or radiculopathy, cervical region

== ENCOUNTER → 2018-10-29 | Outpatient (CLI) | payer MEDICARE ==
[~2018-10-29] MED LIST changes: +OMEP40CA2 PO; -OMEP40CA97 PO; +RIZA10TA4 PO; -RIZA10TA58 PO; -SIMV10TA21 PO
--- NOTE | 2018-11-01 06:37 | HOLTMON ---
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 No significant bradyarrhythmia or pause Single 5 min. episode of dizziness did not correlate with any rhythm or rate change; sinus at 87 bpm. Prognosis associated with the observed ventricular ectopic activity, he is directly related to the presence and severity of any associated structural heart disease. A search should be made for any potentially reversible aggravating factors such as excessive caffeine, alcohol, nicotine, [id number] decongestants etc., electrolyte disturbance or myocardial ischemia and Electronically Signed on 11-01-2018 6:36:32 EDT by Ashok Hays
== END ==
LOC: M CARPUL 12:15 → M EKG 12:15
PROVIDERS: ATTEND Student in an Organized Health Care Education/Training Program
DX: R29.6 Repeated falls (principal)

== ENCOUNTER → 2018-12-29 | Outpatient (CLI) | payer MEDICARE ==
[~2018-12-29] MED LIST changes: -OMEP40CA2 PO; +OMEP40CA97 PO; -RIZA10TA4 PO; +RIZA10TA58 PO
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
== END ==
LOC: M PAIN 14:30
PROVIDERS: ATTEND Anesthesiology
DX: G89.29 Other chronic pain (principal); M79.18 Myalgia, other site; M54.2 Cervicalgia; M47.816 Spondylosis without myelopathy or radiculopathy, lumbar region; M51.16 Intervertebral disc disorders with radiculopathy, lumbar region; G47.30 Sleep apnea, unspecified; J44.9 Chronic obstructive pulmonary disease, unspecified; I11.0 Hypertensive heart disease with heart failure; E78.5 Hyperlipidemia, unspecified; M19.90 Unspecified osteoarthritis, unspecified site; Z98.84 Bariatric surgery status; I50.9 Heart failure, unspecified; F17.210 Nicotine dependence, cigarettes, uncomplicated; Z79.891 Long term (current) use of opiate analgesic; Z79.899 Other long term (current) drug therapy; Z88.5 Allergy status to narcotic agent; Z91.018 Allergy to other foods

== ENCOUNTER → 2019-01-03 | Outpatient (CLI) | payer MEDICAID, MEDICARE ==
--- NOTE | 2019-01-04 14:23 | SLEEPCENT ---
DATE OF STUDY: 01/03/2019 ORDERED BY: Dmitri Benavidez Nocturnal polysomnography was performed for evaluation of sleep physiology in this patient with a prior history of obstructive sleep apnea syndrome who has effected significant weight loss. 7 hours and 31 minutes of data were reviewed. There were 372 minutes of sleep identified. Sleep latency was prolonged at 29 minutes. Rapid eye movement (REM) latency was short at 54 minutes. Sleep architecture was fair with 4 REM cycles. There was some fragmentation noted. Overall sleep efficiency was 83.5%. The electrocardiogram shows a sinus rhythm with an average heart rate of 66 beats per minute. Electroencephalogram (EEG) showed normal waveforms for awake and sleep stages. There were 74 respiratory events identified of 10 seconds in duration or greater for an apnea-hypopnea index of 11.9. Respiratory related arousal index was 3.7 and oxygen desaturations were seen into the low 80s. Limb activity was noted in the EMG leads, but limb movement arousal index was only 3.5. IMPRESSION: Obstructive sleep apnea syndrome (G47.33), apnea-hypopnea index 11.9. RECOMMENDATION: The patient should be encouraged to return to the sleep disorder center for pressure therapy. In the interim, alcohol and sedative avoidance should be practiced and caution exercised during operation of motor vehicles.
== END ==
LOC: M SLEEP 19:55
PROVIDERS: ATTEND Physician Assistant
DX: G47.33 Obstructive sleep apnea (adult) (pediatric) (principal)

== ENCOUNTER → 2019-02-10 | Outpatient (CLI) | payer MEDICARE, MEDICAID ==
[~2019-02-10] MED LIST changes: +SIMV10TA21 PO
--- NOTE | 2019-02-18 16:18 | SLEEPCENT ---
DATE OF PROCEDURE: 02/10/2019 ORDERED BY: MAURIZIO Calvin Nocturnal polysomnography was performed for the titration of pressure therapy in this patient with obstructive sleep apnea syndrome. Apnea-hypopnea index 11.9. For testing the patient was fit with a ResMed Quattro full-face mask of medium size; 5 cm of water pressure were applied to the circuit and the lights were extinguished. 6 hours and 23 minutes of data were reviewed. There were 347.5 minutes of sleep identified. Sleep latency was short at 1.5 minutes. Rapid eye movement (REM) latency was normal at 74 minutes. Sleep architecture was fairly good. There were 2-3 REM cycles noted. Overall sleep efficiency 92.3%. The patient's electrocardiogram showed a sinus rhythm with average heart rate at 55 beats per minute. Electroencephalogram (EEG) showed normal waveforms for awake and sleep. Respiratory events were fully palliated with CPAP at a pressure of 17. There was minimal limb activity, and on pressure therapy oxygen saturations were in the 90s. IMPRESSION: Obstructive sleep apnea syndrome (G47.33). RECOMMENDATIONS: Nightly use of pressure therapy 17 cm of water.
== END ==
LOC: M SLEEP 19:39
PROVIDERS: ATTEND Physician Assistant
DX: G47.33 Obstructive sleep apnea (adult) (pediatric) (principal)

== ENCOUNTER → 2019-03-02 | Outpatient (CLI) | payer MEDICARE, MEDICAID ==
[~2019-03-02] MED LIST changes: +BUPIVACAINE HCL 0.25% 30 ML VIAL As Ordered ONE; +TRIAMCINOLONE ACETONIDE SUSP 40 MG/ML VIAL (J3301) As Ordered ONE; +diazePAM 5 MG TAB As Ordered ONE
--- NOTE | 2019-03-10 01:10 | ECWPNPC ---
PATIENT NAME: GIACOMO MICHEL : 1965 GENDER: MALE VISIT DATE: 03/02/2019 DISCHARGE DATE: 03/02/19 1111 VISIT LOCKED DATE TIME: PHYSICIAN: USHA LEAHY MD RESOURCE: USHA LEAHY MD REASON FOR APPOINTMENT 1. TPI LEFT NECK LEFT SHOULDER HISTORY OF PRESENT ILLNESS HISTORY OF PRESENT ILLNESS: PAIN THE PATIENT DESCRIBES THE PAIN... FALL RISK SCREENING: SCREENING :NO FALLS REPORTED IN THE LAST YEAR CURRENT MEDICATIONS TAKING LASIX 20 MG TABLET 1 TABLET ORALLY ONCE A DAY, NOTES: 0700 TAKING FLONASE 50 MCG/ACT SUSPENSION 1 SPRAY IN EACH NOSTRIL NASALLY BID, NOTES: NONE RECENTLY TAKING ACETAMINOPHEN 500 MG TABLET 1-2 TABLETS ORALLY Q6H PRN PAIN, NOTES: 2 WEEKS AGO TAKING LIDOCAINE 5 % OINTMENT 1 APPLICATION TO AFFECTED AREA NEEDED EXTERNALLY TO THE KNEES AND NECK DAILY, NOTES: NONE RECETLY TAKING TIZANIDINE HCL 4 MG TABLET 1 TABLET NEEDED ORALLY THREE TIMES A DAY, NOTES: 0700 TAKING LYRICA 300 MG CAPSULE 1 CAPSULE ORALLY FOR PAIN TWICE A DAY MDD:2, NOTES: 0700 TAKING TRAMADOL HCL 50 MG TABLET 1 TAB ORALLY EVERY 6 HRS NEEDED MDD:4, NOTES: 0700 TAKING SPIRIVA HANDIHALER 18 MCG CAPSULE 1 CAPSULE INHALATION ONCE A DAY, NOTES: 03/01/19@1400 TAKING ADVAIR DISKUS 500-50 MCG/DOSE AEROSOL POWDER BREATH ACTIVATED 1 PUFF INHALATION TWICE A DAY, NOTES: 0700 TAKING VENTOLIN HFA 90 MCG/ACT AEROSOL SOLUTION 2 PUFFS INHALATION EVERY 4 HOURS NEEDED, NOTES: 03/01/19@1900 TAKING POTASSIUM CHLORIDE 10 MEQ CAPSULE EXTENDED RELEASE 1 CAPSULE WITH FOOD ORALLY ONCE A DAY, NOTES: 0700 TAKING VITAMIN B-12 500 MCG TABLET 1 TABLET ORALLY TWICE DAILY (JERALD), NOTES: 0700 TAKING CALCIUM + D 600-400 MG TABLET 1/2 TABLET ORALLY TWICE DAILY, NOTES: 0700 TAKING MULTIVITAMIN 1 TABLET 1 CHEWABLE TABLET ORALLY TWICE DAILY, NOTES: 03/01/19@0700 TAKING RIZATRIPTAN BENZOATE 10 MG TABLET 1 TABLET ORALLY ONCE DAILY NEEDED, NOTES: 5 DAYS AGO TAKING SIMVASTATIN 10 10MG TABLET 1 TABLET ORAL ONCE A DAY, NOTES: 0700 TAKING LISINOPRIL 5 MG TABLET 1 TABLET ORALLY ONCE DAILY, NOTES: 0700 TAKING OMEPRAZOLE 40 MG CAPSULE DELAYED RELEASE 1 CAPSULE ORALLY ONCE A DAY, NOTES: 0700 TAKING MAGNESIUM OXIDE 400 MG TABLET 1 TAB(S) ORALLY DAILY, NOTES: 1 WEEK AGO TAKING CPAP MACHINE DIRECTED _; SETTINGS: 15 MMHG; WITH TUBING AND SUPPLIES/MASK QHS; ICD10: G47.33, NOTES: WAITING ON NEW MACHINE TAKING CPAP MASK DIRECTED TOPICALLY; RESTMED MEDIUM MASK WITH TUBING AND SUPPLIES QHS; ICD10: G47.33 TAKING LIDOCAINE VISCOUS HCL 2 % SOLUTION 15 ML TO AFFECTED AREA NEEDED MOUTH/THROAT EVERY 3 HRS SWISH AND SPIT, NOTES: NONE RECENTLY DISCONTINUED AMOXICILLIN-POT CLAVULANATE 875-125 MG TABLET 1 TABLET ORALLY EVERY 12 HRS DISCONTINUED BUPROPION HCL ER (SMOKING DET) 150 MG TABLET EXTENDED RELEASE 12 HOUR 1 TABLET IN THE MORNING ORALLY ONCE A DAY DISCONTINUED MAXALT 10 MG TABLET 1 TABLET NEEDED ORALLY ONE AT ONSET MAY REPEAT IN 2 HRS IF NEEDED DISCONTINUED ADVAIR DISKUS 500-50 MCG/DOSE AEROSOL POWDER BREATH ACTIVATED 1 PUFF INHALATION TWICE A DAY, NOTES: DUPLICATE DISCONTINUED CLARITIN 10 MG CAPSULE 1 CAPSULE ORALLY ONCE A DAY DISCONTINUED NICOTINE MINI 4 MG LOZENGE 1 LOZENGE NEEDED MOUTH/THROAT 20 TIME(S) A DAY DISCONTINUED AMITRIPTYLINE HCL 10 MG TABLET 1 TABLET ORALLY ONCE A DAY FOR 2 WEEKS THEN EVERYOTHER DAY FOR 2 WEEKS THEN STOP DISCONTINUED ELIQUIS 5 MG TABLET 1 TAB ORALLY BID DISCONTINUED METRONIDAZOLE 500 MG TABLET 1 TABLET ORALLY TWICE A DAY DISCONTINUED FLECTOR 1.3 % PATCH 1 PATCH TO SKIN, LOW BACK TRANSDERMAL BEFORE BEDTIME DISCONTINUED LIDODERM 5 % PATCH 1 PATCH TO SKIN REMOVE AFTER 12 HOURS EXTERNALLY ONCE A DAY DISCONTINUED OXYCODONE-ACETAMINOPHEN 5-325 MG TABLET 1 TABLET NEEDED ORALLY EVERY 6 HRS DISCONTINUED TIZANIDINE HCL 4 MG TABLET 1 TABLET NEEDED ORALLY THREE TIMES A DAY DISCONTINUED PREDNISONE 20 MG TABLET 3 ORALLY ONCE A DAY DISCONTINUED VITAMIN D3 27735 UNIT CAPSULE DIRECTED ORALLY WEEKLY MEDICATION LIST REVIEWED AND RECONCILED WITH THE PATIENT PAST MEDICAL HISTORY SLEEP APNEA USES CPAP COPD NO O2 HTN HLD ARTHRITIS - MULTIPLE LOCATIONS DEPRESSION AND ANXIETY DIABETES DIAGNOSED 10/04 - IN REMISSION SINCE GBSX PERIPHERAL NEUROPATHY S/P GASTRIC BYPASS INJURY, OTHER AND UNSPECIFIED, SHOULDER AND UPPER ARM OBESITY HISTORY OF DENNISE-EN-Y GASTRIC BYPASS CONGESTIVE HEART FAILURE PNEUMOCOCCAL VACCINE 2010 ALLERGIES POLISH PEPPER TREES AND MELALEUCA TREES VICODIN: NAUSEA - SIDE EFFECTS SURGICAL HISTORY NO SURGICAL HISTORY DOCUMENTED. FAMILY HISTORY NO FAMILY HISTORY DOCUMENTED. HOSPITALIZATION/MAJOR DIAGNOSTIC PROCEDURE NO HOSPITALIZATION HISTORY. REVIEW OF SYSTEMS REVIEWED BY: PROVIDER: . CONSTITUTIONAL: ANY CHANGE IN YOUR MEDICAL CONDITION? NO . CHILLS NO . FEVER NO . INFECTION: DO YOU HAVE NEW INFECTIONS? NO . DO YOU HAVE HISTORY OF MRSA? NO . MUSCULOSKELETAL: ANY NEW PATTERNS OF PAIN OR NUMBNESS? YES . GASTROENTEROLOGY: ANY NEW CHANGE IN BOWEL CONTROL? NO . GENITOURINARY: ANY NEW CHANGE IN BLADDER CONTROL? NO . IS THERE A CHANCE YOU COULD BE ? NO . HEMATOLOGY/LYMPH: DO YOU TAKE ANY BLOOD THINNERS? (FOR EXAMPLE- COUMADIN, PLAVIX, AGGRENOX, PLATEL, PRADAXA, OR XARELTO) NO . WHEN WAS YOUR LAST DOSE? DATE: TIME: . NEUROLOGY: HAVE YOU FALLEN IN THE PAST 12 MONTHS? YES . ANY NEW EXTREMITY NUMBNESS OR WEAKNESS? YES . CARDIOLOGY: DO YOU HAVE A PACEMAKER OR DEFIBRILLATOR? NO . RESPIRATORY: HAVE YOU BEEN SICK IN THE PAST WEEK? NO . FEVER NO . FLU LIKE SYMPTOMS? NO . COUGH NO . INTEGUMENTARY: DO YOU HAVE ANY RASHES OR OPEN SORES? NO . ALLERGIC/IMMUNO: ARE YOU ALLERGIC TO IV DYE? NO . ANY NEW ALLERGIES? NO . PSYCHIATRIC: DO YOU HAVE THOUGHTS OF HURTING YOURSELF OR SOMEONE ELSE? NO . ARE YOU ABUSED, NEGLECTED, OR IN AN UNSAFE ENVIRONMENT? NO . ENDOCRINOLOGY: ARE YOU DIABETIC? NO . OTHER: DO YOU NEED ANY PRESCRIPTIONS? NO . IF YES, PLEASE LIST: ____ . ANY NEW PROBLEMS WITH YOUR MEDICATIONS? NO . WHEN DID YOU LAST EAT? ____03/01/19 . WHEN DID YOU LAST DRINK? ____03/01/19 . WHAT DID YOU LAST DRINK? ____WATER . NAME OF PERSON DRIVING YOU HOME? ___DALE MICHEL . DO YOU HAVE ANY OTHER QUESTIONS OR CONCERNS NO . VITAL SIGNS WT 274.2 LBS, HT 72 IN, BMI 37.18 INDEX, BP 122/59 MM HG, HR 59 /MIN, RR 18 /MIN, TEMP 96.6 F, OXYGEN SAT % 96%, SAFE IN ENV? (Y/N) YES, NA INITIALS AW 0932, REVIEWED BY: VD. ASSESSMENTS MYALGIA, OTHER SITE - M79.18 (PRIMARY) PROCEDURES PN TRIGGER POINT INJECTION WITH STEROIDS PRE PROCEDURE DIAGNOSIS 1. MYALGIA 2. PAIN AT LEFT NECK AREA AND LEFT SHOULDER AREA POST PROCEDURE DIAGNOSIS 1. MYALGIA 2. PAIN AT LEFT NECK AREA AND LEFT SHOULDER AREA PROCEDURE TRIGGER POINT INJECTION AT LEFT NECK AREA AND LEFT SHOULDER AREA SURGEON DR. USHA LEAHY ICE PLATFORM SUPERVISOR NONE ANESTHESIA LOCAL PRE PROCEDURE NOTE THE PATIENT HAS A HISTORY OF CHRONIC PAIN AT THE LEFT NECK AREA AND LEFT SHOULDER AREA. I EVALUATED THE PATIENT AND REVIEWED THE CHART. THERE IS EVIDENCE OF BANDS OF TISSUE WITH RESTRICTION OF MOVEMENT AND PRESENCE OF TRIGGER POINT AT THE AFFECTED AREA. I WENT OVER THE RISKS, ALTERNATIVES, AND BENEFITS ASSOCIATED WITH THIS PROCEDURE. THE PATIENT WOULD LIKE TO PROCEED AND GIVES CONSENT TO PERFORM THE PROCEDURE. THE PATIENT DENIES UNEXPLAINABLE WEIGHT LOSS, FEVER, CHILLS, OR NEW CHANGES IN URINARY OR BOWEL CONTROL DESCRIPTION OF PROCEDURE THE PATIENT WAS BROUGHT TO THE PROCEDURE ROOM AND PLACED IN THE SITTING POSITION. THE AREA WAS CLEANED WITH ALCOHOL. THE PROCEDURE WAS DONE USING ASEPTIC STERILE TECHNIQUE. I CHECKED LATERALITY AND THE LEVEL WHERE THE PROCEDURE WAS GOING TO BE PERFORMED WITH THE PATIENT AND THE SUPPORTING STAFF AT THE MOMENT OF THE TIME OUT IN THE PROCEDURE ROOM. USING A 25-GAUGE NEEDLE, TRIGGER POINTS WERE INJECTED AT THE LEFT NECK AREA AND LEFT SHOULDER AREA WITH A TOTAL OF 40 ML OF BUPIVACAINE 0.25% AND KENALOG 40 MG. THERE WAS NO EVIDENCE OF BLOOD, PARESTHESIA OR CEREBROSPINAL FLUID DURING THE PROCEDURE. THE PATIENT WAS SENT TO THE RECOVERY ROOM. THE PATIENT WAS MOVING THE EXTREMITIES AND DOING WELL. THERE WAS NO COMPLICATION DURING THE PROCEDURE POST PROCEDURE NOTE THE PATIENT WILL BE SEEN IN A FOLLOW UP IN THE NEXT FEW WEEKS. I AM LOOKING FOR LONG-LASTING PAIN RELIEF WITH THIS INJECTION. WE WILL CONSIDER CERVICAL EPIDURAL STEROIDAL INJECTION TREATMENT IN THE FUTURE. INSTRUCTIONS WERE GIVEN, QUESTIONS WERE ANSWERED, AND THE PATIENT EXPRESSED UNDERSTANDING AND AGREES WITH THE PLAN. I, VENECIA GONZALEZ, DOCUMENTED THE ABOVE INFORMATION ACTING A SCRIBE FOR DR. LEAHY. I HAVE REVIEWED THE ABOVE DOCUMENT, WRITTEN BY MIKE BARRETT, AND I VERIFY THAT IT IS ACCURATE PROCEDURE CODES 13102 INJECT TRIGGER POINT, 1 OR 2 DISPOSITION & COMMUNICATION FOLLOW UP 3 WEEKS ELECTRONICALLY SIGNED BY USHA LEAHY MD, MD ON 03/09/2019 AT 10:56 AM EST DISCLAIMER : THIS IS A VISIT SUMMARY EXTRACTED FROM THE [employer] CHART. IT IS NOT A COPY OF THE [employer] PROGRESS NOTE. [facility] CENTERAndry
== END ==
LOC: M PAIN 09:30
PROVIDERS: ATTEND Anesthesiology
DX: M79.18 Myalgia, other site (principal); G47.30 Sleep apnea, unspecified; J44.9 Chronic obstructive pulmonary disease, unspecified; I10 Essential (primary) hypertension; Z86.59 Personal history of other mental and behavioral disorders; E11.40 Type 2 diabetes mellitus with diabetic neuropathy, unspecified; Z98.84 Bariatric surgery status; Z88.5 Allergy status to narcotic agent; Z79.899 Other long term (current) drug therapy
CPT/HCPCS: 20552; J3301

== ENCOUNTER → 2019-03-11 | Outpatient (REF) | payer MEDICARE, MEDICAID ==
[~2019-03-11] MED LIST changes: -BUPIVACAINE HCL 0.25% 30 ML VIAL As Ordered ONE; -TRIAMCINOLONE ACETONIDE SUSP 40 MG/ML VIAL (J3301) As Ordered ONE; -diazePAM 5 MG TAB As Ordered ONE
== END ==
LOC: M SFHCPLAZ 11:40
PROVIDERS: ATTEND Family Medicine
DX: R25.2 Cramp and spasm (principal); Z86.39 Personal history of other endocrine, nutritional and metabolic disease; Z53.8 Procedure and treatment not carried out for other reasons

== ENCOUNTER → 2019-03-18 | Outpatient (CLI) | payer MEDICARE, MEDICAID ==
[2019-03-18 17:41] LABS: ALBUMIN 3.7 GM/DL (3.2-5.2); ALT/SGPT 29 U/L (12-78); BILIRUBIN,TOTAL 0.6 MG/DL (0.2-1.0); BLOOD UREA NITROGEN 12 MG/DL (7-18); CARBON DIOXIDE LEVEL 30 MEQ/L (21-32); CHLORIDE LEVEL 105 MEQ/L (98-107); CREATININE FOR GFR 0.77 MG/DL (0.70-1.30); GLOMERULAR FILTRATION RATE > 60.0 (>56); GLUCOSE, FASTING 90 MG/DL (70-100); MAGNESIUM LEVEL 2.1 MG/DL (1.8-2.4); POTASSIUM SERUM 4.3 MEQ/L (3.5-5.1); SODIUM LEVEL 138 MEQ/L (136-145)
[2019-03-18 17:49] LABS: HEMOGLOBIN A1c 5.3 %
== END ==
LOC: M PLALAB 13:25
PROVIDERS: ATTEND Student in an Organized Health Care Education/Training Program
DX: R25.2 Cramp and spasm (principal); Z86.39 Personal history of other endocrine, nutritional and metabolic disease

== ENCOUNTER → 2019-03-23 | Outpatient (CLI) | payer MEDICARE, MEDICAID ==
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
== END ==
LOC: M PAIN 08:45
PROVIDERS: ATTEND Nurse Practitioner Family
DX: M50.20 Other cervical disc displacement, unspecified cervical region (principal); F17.210 Nicotine dependence, cigarettes, uncomplicated; Z79.891 Long term (current) use of opiate analgesic; Z79.899 Other long term (current) drug therapy; Z88.5 Allergy status to narcotic agent

== ENCOUNTER → 2019-05-05 | Outpatient (CLI) | payer MEDICARE, MEDICAID ==
[~2019-05-05] MED LIST changes: +ISOVUE-M 300 61% 15ML VIAL (Q9967) As Ordered ONE; +LIDOCAINE 1% SDV INJ 30 ML VIAL As Ordered ONE; +diazePAM 5 MG TAB As Ordered ONE; +methylPREDNISolone SUSP 40 MG/ML (DEPO-medrol) VIAL (J1030) As Ordered ONE
--- NOTE | 2019-05-05 12:54 | REP ---
Partial cervical spine series: Three views. History: Cervical epidural steroid injection for pain. 18 seconds of fluoroscopy time is reported. Findings: A sequence of three last image hold fluoroscopically obtained spot radiographs of the cervical spine document needle position and contrast injection associated with cervical epidural injection procedure. Electronically Signed by Davion Arango MD 05/05/2019 12:45 P
--- NOTE | 2019-05-17 04:33 | ECWPNPC ---
PATIENT NAME: GIACOMO MICHEL : 1965 GENDER: MALE VISIT DATE: 05/05/2019 DISCHARGE DATE: 05/05/19 1118 VISIT LOCKED DATE TIME: PHYSICIAN: USHA LEAHY MD RESOURCE: USHA LEAHY MD REASON FOR APPOINTMENT 1. ERIN HISTORY OF PRESENT ILLNESS HISTORY OF PRESENT ILLNESS: PAIN THE PATIENT DESCRIBES THE PAIN... FALL RISK SCREENING: SCREENING :NO FALLS REPORTED IN THE LAST YEAR CURRENT MEDICATIONS TAKING SPIRIVA HANDIHALER 18 MCG CAPSULE 1 CAPSULE INHALATION ONCE A DAY, NOTES: 05/04/2019 1200 TAKING ADVAIR DISKUS 500-50 MCG/DOSE AEROSOL POWDER BREATH ACTIVATED 1 PUFF INHALATION TWICE A DAY, NOTES: 05/05/2019 0800 TAKING VENTOLIN HFA 90 MCG/ACT AEROSOL SOLUTION 2 PUFFS INHALATION EVERY 4 HOURS NEEDED, NOTES: PRN TAKING POTASSIUM CHLORIDE 10 MEQ CAPSULE EXTENDED RELEASE 1 CAPSULE WITH FOOD ORALLY ONCE A DAY, NOTES: 05/05/2019 0800 TAKING VITAMIN B-12 500 MCG TABLET 1 TABLET ORALLY TWICE DAILY (JERALD), NOTES: 05/05/2019 08 TAKING CALCIUM + D 600-400 MG TABLET 1/2 TABLET ORALLY TWICE DAILY, NOTES: 05/05/2019 08 TAKING MULTIVITAMIN 1 TABLET 1 CHEWABLE TABLET ORALLY TWICE DAILY, NOTES: 05/05/2019 0800 TAKING RIZATRIPTAN BENZOATE 10 MG TABLET 1 TABLET ORALLY ONCE A DAY, NOTES: PRN - TAKES ONLY WITH MIGRAINE TAKING LASIX 20 MG TABLET 1 TABLET ORALLY ONCE A DAY, NOTES: 05/05/2019 0800 TAKING FLONASE 50 MCG/ACT SUSPENSION 1 SPRAY IN EACH NOSTRIL NASALLY BID, NOTES: 05/04/2019 2200 TAKING ACETAMINOPHEN 500 MG TABLET 1-2 TABLETS ORALLY Q6H PRN PAIN, NOTES: PRN TAKING LIDOCAINE 5 % OINTMENT 1 APPLICATION TO AFFECTED AREA NEEDED EXTERNALLY TO THE KNEES AND NECK DAILY, NOTES: PRN TAKING MAGNESIUM OXIDE 400 MG TABLET 1 TAB(S) ORALLY DAILY, NOTES: 05/05/2019 0800 TAKING CPAP MACHINE DIRECTED _; SETTINGS: 15 MMHG; WITH TUBING AND SUPPLIES/MASK QHS; ICD10: G47.33 TAKING CPAP MASK DIRECTED TOPICALLY; RESTMED MEDIUM MASK WITH TUBING AND SUPPLIES QHS; ICD10: G47.33 TAKING TIZANIDINE HCL 4 MG TABLET 1 TABLET NEEDED ORALLY THREE TIMES A DAY, NOTES: 05/05/2019 08 TAKING OMEPRAZOLE 40 MG CAPSULE DELAYED RELEASE 1 CAPSULE ORALLY ONCE A DAY, NOTES: 05/05/2019 08 TAKING LYRICA 300 MG CAPSULE 1 CAPSULE ORALLY FOR PAIN TWICE A DAY MDD:2, NOTES: 05/05/2019799 TAKING LISINOPRIL 5 MG TABLET 1 TABLET ORALLY ONCE DAILY, NOTES: 05/05/2019799 TAKING TRAMADOL HCL 50 MG TABLET 1 TAB ORALLY EVERY 6 HRS NEEDED MDD:4, NOTES: 05/05/2019799 TAKING SIMVASTATIN 10 10MG TABLET 1 TABLET ORAL ONCE A DAY, NOTES: 05/05/2019799 NOT-TAKING LIDOCAINE VISCOUS HCL 2 % SOLUTION 15 ML TO AFFECTED AREA NEEDED MOUTH/THROAT EVERY 3 HRS SWISH AND SPIT MEDICATION LIST REVIEWED AND RECONCILED WITH THE PATIENT PAST MEDICAL HISTORY SLEEP APNEA USES CPAP COPD NO O2 HTN HLD ARTHRITIS - MULTIPLE LOCATIONS DEPRESSION AND ANXIETY DIABETES DIAGNOSED 10/04 - IN REMISSION SINCE GBSX PERIPHERAL NEUROPATHY S/P GASTRIC BYPASS INJURY, OTHER AND UNSPECIFIED, SHOULDER AND UPPER ARM OBESITY HISTORY OF DENNISE-EN-Y GASTRIC BYPASS CONGESTIVE HEART FAILURE PNEUMOCOCCAL VACCINE 2010 ALLERGIES UKRAINIAN PEPPER TREES AND MELALEUCA TREES VICODIN: NAUSEA - SIDE EFFECTS SURGICAL HISTORY TUMOR REMOVED IN RIGHT HIP AT 5Y/O SEBACEOUS CYST REMOVAL/ 09/[address] MARQUES 06/10/2013 COLONOSCOPY 2016 LEFT ROTATOR CUFF 2018 RIGHT SHOULDER SURGERY 2017 FAMILY HISTORY FATHER: , CAD S/P [place] AT 62, DIABETES, HTN, DIAGNOSED WITH DIABETES, UNSPECIFIED HEART DISEASE MOTHER: ALIVE, COPD, CAD S/P STENTS, CRF, THYROID PROBLEMS SIBLINGS: ALIVE, STROKE-OLDER BROTHER. OLDER SISTER-DM, OLDER SISTER-DM, OLDER BROTHER-CYSTIC ULCERS, UNSPECIFIED HEART DISEASE, OTHER MALIGNANT NEOPLASM OF UNSPECIFIED SITE DAUGHTER(S): ALIVE 2 BROTHER(S) , 2 SISTER(S) - HEALTHY. 2DAUGHTER(S) - HEALTHY. AUNTS WITH CANCER. SOCIAL HISTORY GENERAL: TOBACCO USE ARE YOU A:CURRENT SMOKER ARE YOU INTERESTED IN QUITTING?READY TO QUIT CUTTING BACK CURRENTLY. COUNSELED THE PATIENT ON TOBACCO USE, CESSATION [id number]/29/2020 HOW MANY CIGARETTES A DAY DO YOU SMOKE?5 OR LESS HOW SOON AFTER YOU WAKE UP DO YOU SMOKE YOUR FIRST CIGARETTE?31-60 MIN HOW OFTEN DO YOU SMOKE CIGARETTES?SOME DAYS, BUT NOT EVERY DAY PATIENT COUNSELED ON THE DANGERS OF TOBACCO USE AND URGED TO QUIT:05/05/2019 HIV / HEP-C SCREENING HIV TEST OFFERED TO PATIENT:YES DATE OFFERED:09/16/2016 TEST ACCEPTED:NO HEP-C TEST OFFERED TO PATIENT:YES DATE OFFERED:09/16/2016 REASON:PATIENT DECLINED TEST ACCEPTED:NO REASON:PATIENT DECLINED OTHERS AT HOME: SON -IN-LAW. EDUCATION LEVEL OF EDUCATION:FINISHED HIGH SCHOOL DIET: SPECIAL DIET FOR GASTRIC BYPASS. LANGUAGE [place]. DOMESTIC VIOLENCE DO YOU FEEL SAFE IN YOUR ENVIRONMENT?YES BMI CARE GOAL FOLLOW-UP ABOVE NORMAL BMI FOLLOW-UPDIETARY MANAGEMENT EDUCATION, GUIDANCE, AND COUNSELING RECREATIONAL DRUG USE DRUG USE?NO EXERCISE: NO REGULAR EXERCISE DUE TO OBESITY/SPINAL CLAUDICATION. LEARNING BARRIERS / SPECIAL NEEDS CHANGE FROM LAST VISIT?NO BARRIERS TO LEARNING?NO HEARING IMPAIRED?YES RINGING IN EARS VISION IMPAIRED?YES COGNITIVELY IMPAIRED?NO :CORRECTIVE LENSES READINESS TO LEARN?YES LEARNING PREFERENCES?NO LEARNING CAPABILITIES PRESENT?YES EMOTIONAL BARRIERS?NO SPECIAL DEVICES?NO WELFARE VISITOR NEEDED?NO PAIN CLINIC PFS, CLERGY, PUBLIC HEALTH REFERRALS HAS THE PATIENT BEEN EDUCATED REGARDING HIS/HER PLAN OF CARE?YES HAS THE PATIENT BEEN EDUCATED REGARDING PAIN, THE RISK FOR PAIN, THE IMPORTANCE OF EFFECTIVE PAIN MANAGEMENT, AND THE PAIN ASSESSMENT PROCESS?YES LATEX QUESTIONNAIRE LATEX ALLERGY : HAVE YOU EVER DEVELOPED ANY TYPE OF REACTION AFTER HANDLING LATEX PRODUCTS SUCH RUBBER GLOVES, CONDOMS, DIAPHRAGMS, BALLOONS, SOCKS, OR UNDERWEAR?NO LATEX ALLERGY : HAVE YOU EVER DEVELOPED ANY TYPE OF REACTION DURING OR AFTER DENTAL APPOINTMENT, VAGINAL/RECTAL EXAMINATION, SURGICAL PROCEDURE, OR ANY OTHER EXPOSURE?NO DATE ASKED : 12/29/2018 LATEX RISK : HAVE YOU EVER HAD ANY DIFFICULTY BREATHING OR HIVES AFTER EATING OR HANDLING ANY FRUITS, OR VEGETABLES; SUCH KIWI, BANANAS, STONE FRUITS, OR CHESTNUTSNO LATEX RISK : DO YOU HAVE A PREVIOUS PERSONAL HISTORY OF MORE THAN NINE SURGERIES, SPINA BIFIDA, OR REPEATED CATHERIZATIONS? NO LATEX RISK : ARE YOU FREQUENTLY EXPOSED TO LATEX PRODUCTS IN YOUR OCCUPATION?NO CAFFEINE CAFFEINE USE?YES ADVANCE DIRECTIVE ADVANCE DIRECTIVE DISCUSSED WITH PATIENT:YES HCP - DAUGHTER BRENNEN VELÁZQUEZ MORMON [id number] SHINTO MARITAL STATUS: SINGLE. ALCOHOL SCREENING DID YOU HAVE A DRINK CONTAINING ALCOHOL IN THE PAST YEAR?NO POINTS0 INTERPRETATIONNEGATIVE OCCUPATION: UNEMPLOYED. SEXUAL HX HAD SEX IN THE LAST 12 MONTHS (VAGINAL, ORAL, OR ANAL)?NO REVIEWED WITH PATIENT 12/29/18 1515 BVREVIEWED WITH PATIENT 03/23/2019 0903 JS. HOSPITALIZATION/MAJOR DIAGNOSTIC PROCEDURE ABOVE SURGERIES FALL 12/2015 REVIEW OF SYSTEMS REVIEWED BY: PROVIDER: . CONSTITUTIONAL: ANY CHANGE IN YOUR MEDICAL CONDITION? YES- STATES HE WAS TOLD "HIS HIPS ARE BAD AND NEEDS TO HAVE HIP REPLACEMENTS" . CHILLS NO . FEVER NO . INFECTION: DO YOU HAVE NEW INFECTIONS? NO . DO YOU HAVE HISTORY OF MRSA? NO . MUSCULOSKELETAL: ANY NEW PATTERNS OF PAIN OR NUMBNESS? NO . GASTROENTEROLOGY: ANY NEW CHANGE IN BOWEL CONTROL? NO . GENITOURINARY: ANY NEW CHANGE IN BLADDER CONTROL? NO . IS THERE A CHANCE YOU COULD BE ? NO . HEMATOLOGY/LYMPH: DO YOU TAKE ANY BLOOD THINNERS? (FOR EXAMPLE- COUMADIN, PLAVIX, AGGRENOX, PLATEL, PRADAXA, OR XARELTO) NO . WHEN WAS YOUR LAST DOSE? DATE: TIME: . NEUROLOGY: HAVE YOU FALLEN IN THE PAST 12 MONTHS? YES- FELL ABOUT 3 WEEKS- STATES HE FELL DUE TO PAIN IN HIS NECK, STATES HE BUMPED HIS HEAD BUT RECEIVED NO MEDICAL CARE, NO LOC . ANY NEW EXTREMITY NUMBNESS OR WEAKNESS? NO . CARDIOLOGY: DO YOU HAVE A PACEMAKER OR DEFIBRILLATOR? NO . RESPIRATORY: HAVE YOU BEEN SICK IN THE PAST WEEK? NO . FEVER NO . FLU LIKE SYMPTOMS? NO . COUGH NO . INTEGUMENTARY: DO YOU HAVE ANY RASHES OR OPEN SORES? NO . ALLERGIC/IMMUNO: ARE YOU ALLERGIC TO IV DYE? NO . ANY NEW ALLERGIES? NO . PSYCHIATRIC: DO YOU HAVE THOUGHTS OF HURTING YOURSELF OR SOMEONE ELSE? NO . ARE YOU ABUSED, NEGLECTED, OR IN AN UNSAFE ENVIRONMENT? NO . ENDOCRINOLOGY: ARE YOU DIABETIC? NO . OTHER: DO YOU NEED ANY PRESCRIPTIONS? NO . IF YES, PLEASE LIST: ____ . ANY NEW PROBLEMS WITH YOUR MEDICATIONS? NO . WHEN DID YOU LAST EAT? 05/04/2019 1930 . WHEN DID YOU LAST DRINK? 05/05/2019 0800 . WHAT DID YOU LAST DRINK? PEPSI . NAME OF PERSON DRIVING YOU HOME? NEIGHBOR- GABRIELA GALLAGHER . DO YOU HAVE ANY OTHER QUESTIONS OR CONCERNS NO . VITAL SIGNS WT 277.2 LBS, HT 72 IN, BMI 37.59 INDEX, BP 116/69 MM HG, HR 70 /MIN, RR 18 /MIN, TEMP 98.6 F, OXYGEN SAT % 96, SAFE IN ENV? (Y/N) YES, NA INITIALS AW 0915, REVIEWED BY: PIEDAD. ASSESSMENTS CERVICAL DISC DISORDER WITH RADICULOPATHY, UNSPECIFIED CERVICAL REGION - M50.10 (PRIMARY) PROCEDURES PN CERVICAL EPIDURAL PRE PROCEDURE DIAGNOSIS CERVICAL SPINAL STENOSIS ,CERVICAL DISC DISORDER WITH RADICULOPATHY POST PROCEDURE DIAGNOSIS CERVICAL SPINAL STENOSIS, CERVICAL DISC DISORDER WITH RADICULOPATHY PROCEDURE CERVICAL EPIDURAL STEROID INJECTION UNDER FLUOROSCOPIC GUIDANCE SURGEON DR. USHA LEAHY LINEN FOLDER NONE ANESTHESIA LOCAL PRE PROCEDURE NOTE THE PATIENT HAS A HISTORY OF CHRONIC CERVICAL PAIN. I EVALUATED THE PATIENT AND REVIEWED THE CHART. I WENT OVER THE RISKS, ALTERNATIVES, AND BENEFITS ASSOCIATED WITH THIS PROCEDURE. THE PATIENT WOULD LIKE TO PROCEED AND GIVE CONSENT TO PERFORMED THE PROCEDURE. THE PATIENT DENIES UNEXPLAINABLE WEIGHT LOSS, FEVER, CHILLS, OR NEW CHANGES IN URINARY OR BOWEL CONTROL DESCRIPTION OF PROCEDURE THE PATIENT WAS BROUGHT TO THE PROCEDURE ROOM AND PLACED IN THE PRONE POSITION. THE CERVICOTHORACIC AREA WAS CLEANED WITH BETADINE SOLUTION AND DRAPED ASEPTICALLY. THE PROCEDURE WAS DONE UNDER STERILE CONDITIONS. I CHECKED LATERALITY AND THE LEVEL WHERE THE PROCEDURE WAS GOING TO BE PERFORMED WITH THE PATIENT AND THE SUPPORTING STAFF AT THE MOMENT OF THE TIME OUT IN THE PROCEDURE ROOM. UNDER FLUOROSCOPIC GUIDANCE, THE TARGET WAS SELECTED AT THE INTERLAMINAR LEVEL OF C7-T1. LIDOCAINE WAS USED TO NUMB THE SKIN AND THE SUBCUTANEOUS TISSUE BELOW IT. EPIDURAL TUOHY NEEDLE 17-GAUGE WAS ADVANCED UNDER FLUOROSCOPIC GUIDANCE AND FOLLOWING PATIENT FEEDBACK UNTIL THE EPIDURAL SPACE WAS REACHED 6 CM DEEP INTO THE SKIN BY THE LOSS OF RESISTANCE TECHNIQUE. ISOVUE M DYE 30%, 0.25 ML, WAS INJECTED SHOWING ADEQUATE SPREAD OF THE DYE. THEN, A SOLUTION OF 3 ML OF NORMAL SALINE WITH DEPO-MEDROL 60 MG WAS INJECTED SLOWLY FOLLOWING PATIENT FEEDBACK. THERE WAS NO EVIDENCE OF BLOOD, PARESTHESIA OR CEREBROSPINAL FLUID DURING THE PROCEDURE. THE PATIENT WAS SENT TO THE RECOVERY ROOM. THE PATIENT WAS MOVING THE EXTREMITIES AND DOING WELL. THERE WAS NO COMPLICATION DURING THE PROCEDURE. FLUOROSCOPY TIME WAS 18 SECONDS POST PROCEDURE NOTE THE PATIENT WILL BE SEEN IN A FOLLOW UP IN THE NEXT FEW WEEKS. INSTRUCTIONS WERE GIVEN, QUESTIONS WERE ANSWERED, AND THE PATIENT EXPRESSED UNDERSTANDING AND AGREES WITH THE PLAN. I, STEPHANIE GARNER, DOCUMENTED THE ABOVE INFORMATION ACTING A SCRIBE FOR DR. LEAHY. I HAVE REVIEWED THE ABOVE DOCUMENT, WRITTEN BY STEPHANIE GARNER SCRIBE AND I VERIFY THAT IT IS ACCURATE. DIAGNOSTIC IMAGING [facility] FLUORO GUIDE SPINE INJECTION (PAIN)[id number] PROCEDURE CODES 72566 CERVICAL/THORACIC W/ IMAGING 6045F RADXPS IN END [id number] PXD DISPOSITION & COMMUNICATION FOLLOW UP 3 WEEKS ELECTRONICALLY SIGNED BY USHA LEAHY MD, MD ON 05/16/2019 AT 01:11 PM EDT DISCLAIMER : THIS IS A VISIT SUMMARY EXTRACTED FROM THE [employer] CHART. IT IS NOT A COPY OF THE [employer] PROGRESS NOTE. MTDD
== END ==
LOC: M PAIN 09:15
PROVIDERS: ATTEND Anesthesiology
DX: M50.10 Cervical disc disorder with radiculopathy, unspecified cervical region (principal); F17.210 Nicotine dependence, cigarettes, uncomplicated; I10 Essential (primary) hypertension; J44.9 Chronic obstructive pulmonary disease, unspecified; E11.9 Type 2 diabetes mellitus without complications; Z79.891 Long term (current) use of opiate analgesic; Z79.899 Other long term (current) drug therapy; Z88.5 Allergy status to narcotic agent; Z98.84 Bariatric surgery status
CPT/HCPCS: 62321; J1030; Q9967

== ENCOUNTER → 2019-05-18 | Outpatient (CLI) | payer MEDICARE, MEDICAID ==
[~2019-05-18] MED LIST changes: -ISOVUE-M 300 61% 15ML VIAL (Q9967) As Ordered ONE; -LIDOCAINE 1% SDV INJ 30 ML VIAL As Ordered ONE; -diazePAM 5 MG TAB As Ordered ONE; -methylPREDNISolone SUSP 40 MG/ML (DEPO-medrol) VIAL (J1030) As Ordered ONE
--- NOTE | 2019-05-20 00:17 | ECWPNPC ---
PATIENT NAME: GIACOMO MICHEL : 1965 GENDER: MALE VISIT DATE: 05/18/2019 DISCHARGE DATE: 05/18/19 1151 VISIT LOCKED DATE TIME: PHYSICIAN: ALEKSANDR NEWBERRY RESOURCE: ALEKSANDR NEWBERRY REASON FOR APPOINTMENT 1. POST ERIN HISTORY OF PRESENT ILLNESS HISTORY OF PRESENT ILLNESS: HERE FOR POST PROCEDURE FOLLOW-UP. HAD CERVICAL EPIDURAL STEROID INJECTION ON 05/05/2019. THIS WAS DONE AT THE C7/T1 LEVEL. REPORTING MARKED IMPROVEMENT IN LEFT SHOULDER PAIN. REPORTING NO IMPROVEMENT IN NECK PAIN. REPORTING IMPROVED ABILITY TO SLEEP AT NIGHT POST PROCEDURE. PAIN THE PATIENT DESCRIBES THE PAIN... FALL RISK SCREENING: SCREENING :NO FALLS REPORTED IN THE LAST YEAR CURRENT MEDICATIONS TAKING VENTOLIN HFA 90 MCG/ACT AEROSOL SOLUTION 2 PUFFS INHALATION EVERY 4 HOURS NEEDED TAKING POTASSIUM CHLORIDE 10 MEQ CAPSULE EXTENDED RELEASE 1 CAPSULE WITH FOOD ORALLY ONCE A DAY TAKING VITAMIN B-12 500 MCG TABLET 1 TABLET ORALLY TWICE DAILY (JERALD) TAKING CALCIUM + D 600-400 MG TABLET 1/2 TABLET ORALLY TWICE DAILY TAKING MULTIVITAMIN 1 TABLET 1 CHEWABLE TABLET ORALLY TWICE DAILY TAKING RIZATRIPTAN BENZOATE 10 MG TABLET 1 TABLET ORALLY ONCE A DAY, NOTES: PRN - TAKES ONLY WITH MIGRAINE TAKING LASIX 20 MG TABLET 1 TABLET ORALLY ONCE A DAY TAKING FLONASE 50 MCG/ACT SUSPENSION 1 SPRAY IN EACH NOSTRIL NASALLY BID TAKING LIDOCAINE 5 % OINTMENT 1 APPLICATION TO AFFECTED AREA NEEDED EXTERNALLY TO THE KNEES AND NECK DAILY, NOTES: PRN TAKING MAGNESIUM OXIDE 400 MG TABLET 1 TAB(S) ORALLY DAILY TAKING CPAP MACHINE DIRECTED _; SETTINGS: 15 MMHG; WITH TUBING AND SUPPLIES/MASK QHS; ICD10: G47.33 TAKING CPAP MASK DIRECTED TOPICALLY; RESTMED MEDIUM MASK WITH TUBING AND SUPPLIES QHS; ICD10: G47.33 TAKING TIZANIDINE HCL 4 MG TABLET 1 TABLET NEEDED ORALLY THREE TIMES A DAY TAKING OMEPRAZOLE 40 MG CAPSULE DELAYED RELEASE 1 CAPSULE ORALLY ONCE A DAY TAKING LISINOPRIL 5 MG TABLET 1 TABLET ORALLY ONCE DAILY TAKING TRAMADOL HCL 50 MG TABLET 1 TAB ORALLY EVERY 6 HRS NEEDED MDD:4 TAKING SIMVASTATIN 10 10MG TABLET 1 TABLET ORAL ONCE A DAY TAKING SPIRIVA HANDIHALER 18 MCG CAPSULE 1 CAPSULE INHALATION ONCE A DAY TAKING ADVAIR DISKUS 500-50 MCG/DOSE AEROSOL POWDER BREATH ACTIVATED 1 PUFF INHALATION TWICE A DAY TAKING LYRICA 300 MG CAPSULE 1 CAPSULE ORALLY FOR PAIN TWICE A DAY MDD:2 TAKING KETOPROFEN 25 MG CAPSULE 2 CAPSULE WITH FOOD NEEDED ORALLY EVERY 6 HRS NOT-TAKING ACETAMINOPHEN 500 MG TABLET 1-2 TABLETS ORALLY Q6H PRN PAIN NOT-TAKING LIDOCAINE VISCOUS HCL 2 % SOLUTION 15 ML TO AFFECTED AREA NEEDED MOUTH/THROAT EVERY 3 HRS SWISH AND SPIT MEDICATION LIST REVIEWED AND RECONCILED WITH THE PATIENT PAST MEDICAL HISTORY SLEEP APNEA USES CPAP COPD NO O2 HTN HLD ARTHRITIS - MULTIPLE LOCATIONS DEPRESSION AND ANXIETY DIABETES DIAGNOSED 10/04 - IN REMISSION SINCE GBSX PERIPHERAL NEUROPATHY S/P GASTRIC BYPASS INJURY, OTHER AND UNSPECIFIED, SHOULDER AND UPPER ARM OBESITY HISTORY OF DENNISE-EN-Y GASTRIC BYPASS CONGESTIVE HEART FAILURE PNEUMOCOCCAL VACCINE 2010 ALLERGIES JAPANESE PEPPER TREES AND MELALEUCA TREES VICODIN: NAUSEA - SIDE EFFECTS SURGICAL HISTORY TUMOR REMOVED IN RIGHT HIP AT 5Y/O SEBACEOUS CYST REMOVAL/ 09/[address] MARQUES 06/10/2013 COLONOSCOPY 2016 LEFT ROTATOR CUFF 2018 RIGHT SHOULDER SURGERY 2016 FAMILY HISTORY FATHER: , CAD S/P [place] AT 62, DIABETES, HTN, DIAGNOSED WITH DIABETES, UNSPECIFIED HEART DISEASE MOTHER: ALIVE, COPD, CAD S/P STENTS, CRF, THYROID PROBLEMS SIBLINGS: ALIVE, STROKE-OLDER BROTHER. OLDER SISTER-DM, OLDER SISTER-DM, OLDER BROTHER-CYSTIC ULCERS, UNSPECIFIED HEART DISEASE, OTHER MALIGNANT NEOPLASM OF UNSPECIFIED SITE DAUGHTER(S): ALIVE 2 BROTHER(S) , 2 SISTER(S) - HEALTHY. 2DAUGHTER(S) - HEALTHY. AUNTS WITH CANCER. SOCIAL HISTORY GENERAL: TOBACCO USE ARE YOU A:CURRENT SMOKER ARE YOU INTERESTED IN QUITTING?READY TO QUIT CUTTING BACK CURRENTLY. COUNSELED THE PATIENT ON TOBACCO USE, CESSATION [id number]/25/2020 HOW MANY CIGARETTES A DAY DO YOU SMOKE?5 OR LESS HOW SOON AFTER YOU WAKE UP DO YOU SMOKE YOUR FIRST CIGARETTE?31-60 MIN HOW OFTEN DO YOU SMOKE CIGARETTES?SOME DAYS, BUT NOT EVERY DAY PATIENT COUNSELED ON THE DANGERS OF TOBACCO USE AND URGED TO QUIT:05/18/2019 HIV / HEP-C SCREENING HIV TEST OFFERED TO PATIENT:YES DATE OFFERED:09/16/2016 TEST ACCEPTED:NO HEP-C TEST OFFERED TO PATIENT:YES DATE OFFERED:09/16/2016 REASON:PATIENT DECLINED TEST ACCEPTED:NO REASON:PATIENT DECLINED OTHERS AT HOME: SON -IN-LAW. EDUCATION LEVEL OF EDUCATION:FINISHED HIGH SCHOOL DIET: SPECIAL DIET FOR GASTRIC BYPASS. LANGUAGE [place]. DOMESTIC VIOLENCE DO YOU FEEL SAFE IN YOUR ENVIRONMENT?YES NEW PATIENT PAIN DIARY TODAY'S VISITNOTES 05/18/2019 PATIENT DESCRIBES PAIN :ACHING, HAVE IT ALL THE TIME FROM 0-10, WHAT LEVEL IS YOUR PAIN TODAY?3 BMI CARE GOAL FOLLOW-UP ABOVE NORMAL BMI FOLLOW-UPDIETARY MANAGEMENT EDUCATION, GUIDANCE, AND COUNSELING RECREATIONAL DRUG USE DRUG USE?NO EXERCISE: NO REGULAR EXERCISE DUE TO OBESITY/SPINAL CLAUDICATION. LEARNING BARRIERS / SPECIAL NEEDS CHANGE FROM LAST VISIT?NO BARRIERS TO LEARNING?NO HEARING IMPAIRED?YES RINGING IN EARS VISION IMPAIRED?YES COGNITIVELY IMPAIRED?NO :CORRECTIVE LENSES READINESS TO LEARN?YES LEARNING PREFERENCES?NO LEARNING CAPABILITIES PRESENT?YES EMOTIONAL BARRIERS?NO SPECIAL DEVICES?NO DATA CLERK NEEDED?NO PAIN CLINIC PFS, CLERGY, PUBLIC HEALTH REFERRALS HAS THE PATIENT BEEN EDUCATED REGARDING HIS/HER PLAN OF CARE?YES HAS THE PATIENT BEEN EDUCATED REGARDING PAIN, THE RISK FOR PAIN, THE IMPORTANCE OF EFFECTIVE PAIN MANAGEMENT, AND THE PAIN ASSESSMENT PROCESS?YES LATEX QUESTIONNAIRE LATEX ALLERGY : HAVE YOU EVER DEVELOPED ANY TYPE OF REACTION AFTER HANDLING LATEX PRODUCTS SUCH RUBBER GLOVES, CONDOMS, DIAPHRAGMS, BALLOONS, SOCKS, OR UNDERWEAR?NO LATEX ALLERGY : HAVE YOU EVER DEVELOPED ANY TYPE OF REACTION DURING OR AFTER DENTAL APPOINTMENT, VAGINAL/RECTAL EXAMINATION, SURGICAL PROCEDURE, OR ANY OTHER EXPOSURE?NO LATEX RISK : HAVE YOU EVER HAD ANY DIFFICULTY BREATHING OR HIVES AFTER EATING OR HANDLING ANY FRUITS, OR VEGETABLES; SUCH KIWI, BANANAS, STONE FRUITS, OR CHESTNUTSNO LATEX RISK : DO YOU HAVE A PREVIOUS PERSONAL HISTORY OF MORE THAN NINE SURGERIES, SPINA BIFIDA, OR REPEATED CATHERIZATIONS? NO LATEX RISK : ARE YOU FREQUENTLY EXPOSED TO LATEX PRODUCTS IN YOUR OCCUPATION?NO DATE ASKED : 05/18/2019 CAFFEINE CAFFEINE USE?YES ADVANCE DIRECTIVE ADVANCE DIRECTIVE DISCUSSED WITH PATIENT:YES HCP - DAUGHTER BRENNEN VELÁZQUEZ DRUZE [id number] CONGREGATIONAL MARITAL STATUS: SINGLE. ALCOHOL SCREENING DID YOU HAVE A DRINK CONTAINING ALCOHOL IN THE PAST YEAR?NO POINTS0 INTERPRETATIONNEGATIVE OCCUPATION: UNEMPLOYED. SEXUAL HX HAD SEX IN THE LAST 12 MONTHS (VAGINAL, ORAL, OR ANAL)?NO HOSPITALIZATION/MAJOR DIAGNOSTIC PROCEDURE ABOVE SURGERIES FALL 12/2015 REVIEW OF SYSTEMS REVIEWED BY: PROVIDER: ALEKSANDR NEWBERRY ASSISTANT CURATOR . CONSTITUTIONAL: ANY CHANGE IN YOUR MEDICAL CONDITION? NO . CHILLS NO . FEVER NO . INFECTION: DO YOU HAVE NEW INFECTIONS? NO . DO YOU HAVE HISTORY OF MRSA? NO . MUSCULOSKELETAL: ANY NEW PATTERNS OF PAIN OR NUMBNESS? YES, STATES MORE ACHING PAIN IN LEFT BICEP . GASTROENTEROLOGY: ANY NEW CHANGE IN BOWEL CONTROL? NO . GENITOURINARY: ANY NEW CHANGE IN BLADDER CONTROL? NO . IS THERE A CHANCE YOU COULD BE ? NO . HEMATOLOGY/LYMPH: DO YOU TAKE ANY BLOOD THINNERS? (FOR EXAMPLE- COUMADIN, PLAVIX, AGGRENOX, PLATEL, PRADAXA, OR XARELTO) NO . WHEN WAS YOUR LAST DOSE? DATE: TIME: . NEUROLOGY: HAVE YOU FALLEN IN THE PAST 12 MONTHS? YES, STATES PRIOR TO LAST VISIT, DISCUSSED AT PREVIOUS VISIT . ANY NEW EXTREMITY NUMBNESS OR WEAKNESS? NO . CARDIOLOGY: DO YOU HAVE A PACEMAKER OR DEFIBRILLATOR? NO, IMPLANTED LOOP RECORDER . RESPIRATORY: HAVE YOU BEEN SICK IN THE PAST WEEK? NO . FEVER NO . FLU LIKE SYMPTOMS? NO . COUGH NO . INTEGUMENTARY: DO YOU HAVE ANY RASHES OR OPEN SORES? YES, SORE TO CHIN THAT HAS BEEN THERE FOR A COUPLE OF MONTHS . ALLERGIC/IMMUNO: ARE YOU ALLERGIC TO IV DYE? NO . ANY NEW ALLERGIES? NO . PSYCHIATRIC: DO YOU HAVE THOUGHTS OF HURTING YOURSELF OR SOMEONE ELSE? NO . ARE YOU ABUSED, NEGLECTED, OR IN AN UNSAFE ENVIRONMENT? NO . ENDOCRINOLOGY: ARE YOU DIABETIC? NO . OTHER: DO YOU NEED ANY PRESCRIPTIONS? NO . IF YES, PLEASE LIST: ____ . ANY NEW PROBLEMS WITH YOUR MEDICATIONS? NO . WHEN DID YOU LAST EAT? ____ . WHEN DID YOU LAST DRINK? ____ . WHAT DID YOU LAST DRINK? ____ . NAME OF PERSON DRIVING YOU HOME? ____ . DO YOU HAVE ANY OTHER QUESTIONS OR CONCERNS NO . VITAL SIGNS WT 283.4 LBS, HT 72 IN, BMI 38.43 INDEX, BP 132/63 MM HG, HR 71 /MIN, RR 18 /MIN, TEMP 97.2 F, OXYGEN SAT % 96%, SAFE IN ENV? (Y/N) YES, NA INITIALS AW 1107, REVIEWED BY: JS. EXAMINATION GENERAL EXAMINATION: GENERALNO ACUTE DISTRESS, WELL NOURISHED AND HYDRATED. PSYCHAPPROPRIATE MOOD AND AFFECT . FACE:UNREMARKABLE. 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 IT IS NOT A COPY OF THE [employer] PROGRESS NOTE. MTDD
== END ==
LOC: M PAIN 11:00
PROVIDERS: ATTEND Nurse Practitioner Family
DX: M50.20 Other cervical disc displacement, unspecified cervical region (principal); F17.210 Nicotine dependence, cigarettes, uncomplicated; Z79.891 Long term (current) use of opiate analgesic; Z79.899 Other long term (current) drug therapy; Z98.84 Bariatric surgery status; Z88.5 Allergy status to narcotic agent; Z91.018 Allergy to other foods

== ENCOUNTER → 2019-08-03 | Outpatient (CLI) | payer MEDICARE, MEDICAID ==
--- NOTE | 2019-08-04 01:37 | ECWPNPC ---
PATIENT NAME: GIACOMO MICHEL : 1965 GENDER: MALE VISIT DATE: 08/03/2019 DISCHARGE DATE: 08/03/19 1027 VISIT LOCKED DATE TIME: PHYSICIAN: ALEKSANDR NEWBERRY RESOURCE: ALEKSANDR NEWBERRY REASON FOR APPOINTMENT 1. NECK/SHOULDER PAT DONE HISTORY OF PRESENT ILLNESS GENERAL: HERE FOR FOLLOW-UP OF CHRONIC NECK PAIN WITH LEFT ARM RADICULAR SYMPTOMS. WAS DOING WELL POST CERVICAL EPIDURAL STEROID INJECTION FOR APPROXIMATELY 6 WEEKS AND THEN PAIN GRADUALLY RETURNED TO BASELINE. CONDITION IS COMPLICATED DUE TO LEFT SHOULDER PAIN WITH HISTORY OF REPAIR OF LEFT SHOULDER LABRAL TEAR A FEW YEARS AGO. CONTINUES WITH LIMITED RANGE OF MOTION OF THE LEFT ARM DUE TO THAT INJURY.-. FALL RISK SCREENING: SCREENING :TWO OR MORE FALLS WITHOUT INJURY IN THE PAST YEAR SCRAPED KNEE, NO REPORT TO ED PAIN SCREENING: PATIENT HAS A COMPLAINT OF ACUTE OR CHRONIC PAIN :YES 08/03/19 LOCATION OF PAIN:NECK INTENSITY OF PAIN (SCALE OF 1 TO 10):7 WHAT DOES YOUR PAIN FEEL LIKE:ACHING, INTERMITTENT, TENDER, THROBBING, SORE, OTHER DURATION:ONLY WITH SPECIFIC ACTIVITIES, PERIODIC PAIN IS INCREASED BY:ACTIVITIES, OTHERS TRYING TO USE ARM PAIN IS DECREASED BY:USE OF PAIN MEDICATIONS NURSING NOTE: -. PAIN CENTER INTAKE QUESTIONS: NOTES: PT STATES THAT HE HAD GOOD RELIEF FROM HIS INJECTION. WOULD LIKE TO SET UP APPT FOR ANOTHER INJECTION. DO YOU HAVE A HISTORY OF MRSA? :NO DO YOU TAKE A BLOOD THINNERS? :NO DO YOU HAVE ANY BLEEDING DISORDERS? :NO ANY NEW NUMBNESS OR WEAKNESS IN YOUR LEGS OR ARMS? :NO ANY PACEMAKER,DEFIBRILLATOR, OR DORSAL COLUMN STIMULATOR? :NO DO YOU HAVE ANY RASHES OR OPEN SORES? :YES PT STATES THAT HE HAS AN OPEN AREA ON CHIN, ENCOURAGED PT TO SEE PCP TO EVALUATE SORE ON CHIN ARE YOU ALLERGIC TO IV DYE? :NO ARE YOU DIABETIC? :NO ANY NEW PROBLEMS WITH YOUR MEDICATIONS? :NO HAVE YOU RECEIVED A VACCINE IN THE PAST 30 DAYS? :NO DO YOU PLAN TO RECEIVE A VACCINE IN THE NEXT 21 DAYS? :NO DO YOU NEED ANY PRESCRIPTION? :NO DO YOU TAKE ANY IMMUNOSUPPRESSIVE MEDICATIONS? :NO IS THERE A CHANCE YOU COULD BE ? :NO ARE YOU BREAST FEEDING? :NO CURRENT MEDICATIONS TAKING VENTOLIN HFA 90 MCG/ACT AEROSOL SOLUTION 2 PUFFS INHALATION EVERY 4 HOURS NEEDED TAKING VITAMIN B-12 500 MCG TABLET 1 TABLET ORALLY TWICE DAILY (JERALD) TAKING CALCIUM + D 600-400 MG TABLET 1/2 TABLET ORALLY TWICE DAILY TAKING MULTIVITAMIN 1 TABLET 1 CHEWABLE TABLET ORALLY TWICE DAILY TAKING RIZATRIPTAN BENZOATE 10 MG TABLET 1 TABLET ORALLY ONCE A DAY, NOTES: PRN - TAKES ONLY WITH MIGRAINE TAKING FLONASE 50 MCG/ACT SUSPENSION 1 SPRAY IN EACH NOSTRIL NASALLY BID TAKING LIDOCAINE 5 % OINTMENT 1 APPLICATION TO AFFECTED AREA NEEDED EXTERNALLY TO THE KNEES AND NECK DAILY, NOTES: PRN TAKING MAGNESIUM OXIDE 400 MG TABLET 1 TAB(S) ORALLY DAILY TAKING CPAP MACHINE DIRECTED _; SETTINGS: 15 MMHG; WITH TUBING AND SUPPLIES/MASK QHS; ICD10: G47.33 TAKING CPAP MASK DIRECTED TOPICALLY; RESTMED MEDIUM MASK WITH TUBING AND SUPPLIES QHS; ICD10: G47.33 TAKING TIZANIDINE HCL 4 MG TABLET 1 TABLET NEEDED ORALLY THREE TIMES A DAY TAKING OMEPRAZOLE 40 MG CAPSULE DELAYED RELEASE 1 CAPSULE ORALLY ONCE A DAY TAKING SPIRIVA HANDIHALER 18 MCG CAPSULE 1 CAPSULE INHALATION ONCE A DAY TAKING ADVAIR DISKUS 500-50 MCG/DOSE AEROSOL POWDER BREATH ACTIVATED 1 PUFF INHALATION TWICE A DAY TAKING KETOPROFEN 25 MG CAPSULE 2 CAPSULE WITH FOOD NEEDED ORALLY EVERY 6 HRS TAKING LASIX 20 MG TABLET TAKE ONE TABLET BY MOUTH EVERY DAY TAKING POTASSIUM CHLORIDE ER 10 MEQ CAPSULE EXTENDED RELEASE TAKE ONE CAPSULE BY MOUTH EVERY DAY WITH FOOD TAKING POTASSIUM CHLORIDE 10 MEQ CAPSULE EXTENDED RELEASE 1 CAPSULE WITH FOOD ORALLY ONCE A DAY TAKING SIMVASTATIN 10 10MG TABLET 1 TABLET ORAL ONCE A DAY TAKING LISINOPRIL 5 MG TABLET 1 TABLET ORALLY ONCE DAILY TAKING TRAMADOL HCL 50 MG TABLET 1 TAB ORALLY EVERY 6 HRS NEEDED MDD:4 TAKING LYRICA 300 MG CAPSULE 1 CAPSULE ORALLY FOR PAIN TWICE A DAY MDD:2 NOT-TAKING ACETAMINOPHEN 500 MG TABLET 1-2 TABLETS ORALLY Q6H PRN PAIN NOT-TAKING LIDOCAINE VISCOUS HCL 2 % SOLUTION 15 ML TO AFFECTED AREA NEEDED MOUTH/THROAT EVERY 3 HRS SWISH AND SPIT MEDICATION LIST REVIEWED AND RECONCILED WITH THE PATIENT PAST MEDICAL HISTORY SLEEP APNEA USES CPAP COPD NO O2 HTN HLD ARTHRITIS - MULTIPLE LOCATIONS DEPRESSION AND ANXIETY DIABETES DIAGNOSED 10/04 - IN REMISSION SINCE GBSX PERIPHERAL NEUROPATHY S/P GASTRIC BYPASS INJURY, OTHER AND UNSPECIFIED, SHOULDER AND UPPER ARM OBESITY HISTORY OF DENNISE-EN-Y GASTRIC BYPASS CONGESTIVE HEART FAILURE PNEUMOCOCCAL VACCINE 2010 ALLERGIES PALESTINIAN PEPPER TREES AND MELALEUCA TREES VICODIN: NAUSEA - SIDE EFFECTS SURGICAL HISTORY TUMOR REMOVED IN RIGHT HIP AT 5Y/O SEBACEOUS CYST REMOVAL/ 09/[address] MARQUES 06/10/2013 COLONOSCOPY 2016 LEFT ROTATOR CUFF 2018 RIGHT SHOULDER SURGERY 2017 FAMILY HISTORY FATHER: , CAD S/P [place] AT 63, DIABETES, HTN, DIAGNOSED WITH DIABETES, UNSPECIFIED HEART DISEASE MOTHER: ALIVE, COPD, CAD S/P STENTS, CRF, THYROID PROBLEMS SIBLINGS: ALIVE, STROKE-OLDER BROTHER. OLDER SISTER-DM, OLDER SISTER-DM, OLDER BROTHER-CYSTIC ULCERS, UNSPECIFIED HEART DISEASE, OTHER MALIGNANT NEOPLASM OF UNSPECIFIED SITE DAUGHTER(S): ALIVE 2 BROTHER(S) , 2 SISTER(S) - HEALTHY. 2DAUGHTER(S) - HEALTHY. AUNTS WITH CANCER. SOCIAL HISTORY GENERAL: TOBACCO USE ARE YOU A:CURRENT SMOKER ARE YOU INTERESTED IN QUITTING?READY TO QUIT CUTTING BACK CURRENTLY. COUNSELED THE PATIENT ON TOBACCO USE, CESSATION [id number]/25/2020 HOW MANY CIGARETTES A DAY DO YOU SMOKE?5 OR LESS HOW SOON AFTER YOU WAKE UP DO YOU SMOKE YOUR FIRST CIGARETTE?31-60 MIN HOW OFTEN DO YOU SMOKE CIGARETTES?SOME DAYS, BUT NOT EVERY DAY PATIENT COUNSELED ON THE DANGERS OF TOBACCO USE AND URGED TO QUIT:08/02/2019 LATEX QUESTIONNAIRE LATEX ALLERGY : HAVE YOU EVER DEVELOPED ANY TYPE OF REACTION AFTER HANDLING LATEX PRODUCTS SUCH RUBBER GLOVES, CONDOMS, DIAPHRAGMS, BALLOONS, SOCKS, OR UNDERWEAR?NO LATEX ALLERGY : HAVE YOU EVER DEVELOPED ANY TYPE OF REACTION DURING OR AFTER DENTAL APPOINTMENT, VAGINAL/RECTAL EXAMINATION, SURGICAL PROCEDURE, OR ANY OTHER EXPOSURE?NO LATEX RISK : HAVE YOU EVER HAD ANY DIFFICULTY BREATHING OR HIVES AFTER EATING OR HANDLING ANY FRUITS, OR VEGETABLES; SUCH KIWI, BANANAS, STONE FRUITS, OR CHESTNUTSNO LATEX RISK : DO YOU HAVE A PREVIOUS PERSONAL HISTORY OF MORE THAN NINE SURGERIES, SPINA BIFIDA, OR REPEATED CATHERIZATIONS? NO LATEX RISK : ARE YOU FREQUENTLY EXPOSED TO LATEX PRODUCTS IN YOUR OCCUPATION?NO DATE ASKED : 08/02/2019 BMI CARE GOAL FOLLOW-UP ABOVE NORMAL BMI FOLLOW-UPDIETARY MANAGEMENT EDUCATION, GUIDANCE, AND COUNSELING ALCOHOL SCREENING DID YOU HAVE A DRINK CONTAINING ALCOHOL IN THE PAST YEAR?NO POINTS0 INTERPRETATIONNEGATIVE RECREATIONAL DRUG USE DRUG USE?NO CAFFEINE CAFFEINE USE?YES HOW OFTEN AND HOW MUCH? 2/DAY SEXUAL HX HAD SEX IN THE LAST 12 MONTHS (VAGINAL, ORAL, OR ANAL)?NO HIV / HEP-C SCREENING HIV TEST OFFERED TO PATIENT:YES DATE OFFERED:09/16/2016 TEST ACCEPTED:NO HEP-C TEST OFFERED TO PATIENT:YES DATE OFFERED:09/16/2016 REASON:PATIENT DECLINED TEST ACCEPTED:NO REASON:PATIENT DECLINED SIKHISM [id number] CONFUCIANISM LANGUAGE [place]EN[place]. EDUCATION LEVEL OF EDUCATION:FINISHED HIGH SCHOOL LEARNING BARRIERS / SPECIAL NEEDS CHANGE FROM LAST VISIT?NO BARRIERS TO LEARNING?NO HEARING IMPAIRED?YES RINGING IN EARS VISION IMPAIRED?YES COGNITIVELY IMPAIRED?NO :CORRECTIVE LENSES READINESS TO LEARN?YES LEARNING PREFERENCES?NO LEARNING CAPABILITIES PRESENT?YES EMOTIONAL BARRIERS?NO SPECIAL DEVICES?NO INSULATION MANAGER NEEDED?NO DOMESTIC VIOLENCE DO YOU FEEL SAFE IN YOUR ENVIRONMENT?YES OCCUPATION: UNEMPLOYED. DIET: SPECIAL DIET FOR GASTRIC BYPASS. EXERCISE: NO REGULAR EXERCISE DUE TO OBESITY/SPINAL CLAUDICATION. MARITAL STATUS: SINGLE. OTHERS AT HOME: SON -IN-LAW. NEW PATIENT PAIN DIARY TODAY'S VISITNOTES PATIENT DESCRIBES PAIN :ACHING, HAVE IT ALL THE TIME FROM 0-10, WHAT LEVEL IS YOUR PAIN TODAY?3 PAIN CLINIC PFS, CLERGY, PUBLIC HEALTH REFERRALS WAS THE PROVIDER NOTIFIED OF ANY PERTINENT INFO?YES HAS THE PATIENT BEEN EDUCATED REGARDING HIS/HER PLAN OF CARE?YES HAS THE PATIENT BEEN EDUCATED REGARDING PAIN, THE RISK FOR PAIN, THE IMPORTANCE OF EFFECTIVE PAIN MANAGEMENT, AND THE PAIN ASSESSMENT PROCESS?YES ADVANCE DIRECTIVE ADVANCE DIRECTIVE DISCUSSED WITH PATIENT:YES HCP - DAUGHTER BRENNEN VELÁZQUEZ HOSPITALIZATION/MAJOR DIAGNOSTIC PROCEDURE ABOVE SURGERIES FALL 12/2015 REVIEW OF SYSTEMS CONSTITUTIONAL: ANY RECENT FEVER OR ILLNESS NO . CHILLS NO . GASTROENTEROLOGY: BOWEL INCONTINENCE NO . ANY NEW CHANGE IN BOWEL CONTROL? NO . ABDOMINAL PAIN NO . CONSTIPATION NO . GENITOURINARY: ANY NEW CHANGE IN BLADDER CONTROL? NO . IS THERE A CHANCE YOU COULD BE ? NO . URINARY INCONTINENCE NO . CARDIOLOGY: CHEST PRESSURE NO . CHEST PAIN NO . RESPIRATORY: COUGH NO . SHORTNESS OF BREATH NO . VITAL SIGNS WT 289 LBS, HT 72 IN, BMI 39.19 INDEX, BP 137/65 MM HG, HR 69 /MIN, RR 16 /MIN, TEMP 97.6 F, OXYGEN SAT % 96, SAFE IN ENV? (Y/N) Y, REVIEWED BY: EM. EXAMINATION GENERAL EXAMINATION: GENERALSETS WITH A LEFT SIDED TILT . LUNGS: LUNG SOUNDS ARE CLEAR . HEART: HEART RATE REGULAR . MUSCULOSKELETAL:*, MUSCLE STRENGTH TESTING WEAK OVER LEFT ARM. WEAK REFLESHER STRENGTH LEFT HAND . CERVICAL:+ FOR PAIN WITH PALPATION OF CERVICAL SPINE. + FOR PAIN WITH PALPATION OF CERVICAL PARASPINALS. . DIAGNOSTIC TESTS REVIEWEDCERVICAL MRI 10/28/2018. 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 PROCEDURE CODES FA211 ESTABILISHED PATIENT [facility] CHARGE DISPOSITION & COMMUNICATION FOLLOW UP POST (REASON: C7-T1 ERIN) ELECTRONICALLY SIGNED BY ZACH MASSEY ON 08/03/2019 AT 10:34 AM EDT DISCLAIMER : THIS IS A VISIT SUMMARY EXTRACTED FROM THE [employer] CHART. IT IS NOT A COPY OF THE [employer] PROGRESS NOTE. ROBERT
== END ==
LOC: M PAIN 09:00
PROVIDERS: ATTEND Nurse Practitioner Family
DX: M50.20 Other cervical disc displacement, unspecified cervical region (principal)

== ENCOUNTER → 2019-08-14 | Outpatient (CLI) | payer MEDICARE, MEDICAID | LOC: M LABSMTC 10:54 | PROVIDERS: ATTEND Anesthesiology | DX: Z11.59 Encounter for screening for other viral diseases (principal); Z03.818 Encounter for observation for suspected exposure to other biological agents ruled out | CPT/HCPCS: C9803; U0003 ==

== ENCOUNTER → 2019-08-17 | Outpatient (CLI) | payer MEDICARE, MEDICAID ==
[~2019-08-17] MED LIST changes: +ISOVUE-M 300 61% 15ML VIAL As Ordered ONE; +LIDOCAINE 1% SDV 30ML VIAL As Ordered ONE; +dexameTHASONE 10MG/1ML VIAL PRES.FREE (J1100 PER 1MG) As Ordered ONE; +diazePAM 5 MG TAB As Ordered ONE
--- NOTE | 2019-08-17 12:56 | REP ---
Partial cervical spine series: Two views. History: Cervical epidural steroid injection for pain. 8 seconds of fluoroscopy time is reported. Findings: A sequence of two last image hold fluoroscopically obtained spot radiographs of the cervicothoracic junction document needle position and contrast injection associated with injection procedure. Electronically Signed by Davion Aarngo MD 08/17/2019 12:47 P
--- NOTE | 2019-08-18 00:22 | ECWPNPC ---
PATIENT NAME: GIACOMO MICHEL : 1965 GENDER: MALE VISIT DATE: 08/17/2019 DISCHARGE DATE: 08/17/19 1032 VISIT LOCKED DATE TIME: PHYSICIAN: USHA LEAHY MD RESOURCE: USHA LEAHY MD REASON FOR APPOINTMENT 1. C7-T1 ERIN PAT DONE HISTORY OF PRESENT ILLNESS GENERAL: -. FALL RISK SCREENING: SCREENING :TWO OR MORE FALLS WITHOUT INJURY IN THE PAST YEAR PAIN SCREENING: PATIENT HAS A COMPLAINT OF ACUTE OR CHRONIC PAIN :YES LOCATION OF PAIN:NECK, LEFT SHOULDER INTENSITY OF PAIN (SCALE OF 1 TO 10):6 WHAT DOES YOUR PAIN FEEL LIKE:ACHING, CONTINOUS, THROBBING, SORE, SHOOTING NURSING NOTE: -. PAIN CENTER INTAKE QUESTIONS: DO YOU HAVE A HISTORY OF MRSA? :NO DO YOU TAKE A BLOOD THINNERS? :NO DO YOU HAVE ANY BLEEDING DISORDERS? :NO ANY NEW NUMBNESS OR WEAKNESS IN YOUR LEGS OR ARMS? :NO ANY PACEMAKER,DEFIBRILLATOR, OR DORSAL COLUMN STIMULATOR? :NO DO YOU HAVE ANY RASHES OR OPEN SORES? :NO ARE YOU ALLERGIC TO IV DYE? :NO ARE YOU DIABETIC? :YES MANAGED WITH DIET ANY NEW PROBLEMS WITH YOUR MEDICATIONS? :NO HAVE YOU RECEIVED A VACCINE IN THE PAST 30 DAYS? :NO DO YOU PLAN TO RECEIVE A VACCINE IN THE NEXT 21 DAYS? :NO DO YOU NEED ANY PRESCRIPTION? :NO DO YOU TAKE ANY IMMUNOSUPPRESSIVE MEDICATIONS? :NO ANY HISTORY OF SEIZURES? :NO ANY HISTORY OF CARDIAC ISSUES OR EVENTS? :YES PULMONARY EMBOLISM - 4 YEARS AGO DO YOU HAVE SLEEP APNEA? :NO ANY RECENT HEAD INJURY? :NO DO YOU HAVE ANY NEW INFECTIONS? :NO IS THERE A CHANCE YOU COULD BE ? :NO ARE YOU BREAST FEEDING? :NO WHEN DID YOU LAST EAT? : 08/16/20191999 WHEN DID YOU LAST DRINK? : 08/16/2019 07 WHAT DID YOU LAST DRINK? : WATER NAME OF PERSON DRIVING YOU HOME? : -NEIGHBOR - GABRIELA GALLAGHER DO YOU HAVE ANY OTHER QUESTIONS OR CONCERNS? : - CURRENT MEDICATIONS TAKING VENTOLIN HFA 90 MCG/ACT AEROSOL SOLUTION 2 PUFFS INHALATION EVERY 4 HOURS NEEDED, NOTES: 08/16/2019 TAKING VITAMIN B-12 500 MCG TABLET 1 TABLET ORALLY TWICE DAILY (JERALD), NOTES: 08/17/2019 07 TAKING CALCIUM + D 600-400 MG TABLET 1/2 TABLET ORALLY TWICE DAILY, NOTES: 08/17/2019699 TAKING MULTIVITAMIN 1 TABLET 1 CHEWABLE TABLET ORALLY TWICE DAILY, NOTES: 08/16/2019699 TAKING RIZATRIPTAN BENZOATE 10 MG TABLET 1 TABLET ORALLY ONCE A DAY, NOTES: PRN - TAKES ONLY WITH MIGRAINE TAKING FLONASE 50 MCG/ACT SUSPENSION 1 SPRAY IN EACH NOSTRIL NASALLY BID, NOTES: 08/16/20191999 TAKING LIDOCAINE 5 % OINTMENT 1 APPLICATION TO AFFECTED AREA NEEDED EXTERNALLY TO THE KNEES AND NECK DAILY, NOTES: PRN TAKING MAGNESIUM OXIDE 400 MG TABLET 1 TAB(S) ORALLY DAILY, NOTES: 08/17/2019699 TAKING CPAP MACHINE DIRECTED _; SETTINGS: 15 MMHG; WITH TUBING AND SUPPLIES/MASK QHS; ICD10: G47.33 TAKING CPAP MASK DIRECTED TOPICALLY; RESTMED MEDIUM MASK WITH TUBING AND SUPPLIES QHS; ICD10: G47.33 TAKING TIZANIDINE HCL 4 MG TABLET 1 TABLET NEEDED ORALLY THREE TIMES A DAY, NOTES: 08/17/2019699 TAKING OMEPRAZOLE 40 MG CAPSULE DELAYED RELEASE 1 CAPSULE ORALLY ONCE A DAY, NOTES: 08/17/2019699 TAKING SPIRIVA HANDIHALER 18 MCG CAPSULE 1 CAPSULE INHALATION ONCE A DAY, NOTES: 08/16/20191999 TAKING ADVAIR DISKUS 500-50 MCG/DOSE AEROSOL POWDER BREATH ACTIVATED 1 PUFF INHALATION TWICE A DAY, NOTES: 08/17/2019699 TAKING LASIX 20 MG TABLET TAKE ONE TABLET BY MOUTH EVERY DAY , NOTES: 08/17/2019699 TAKING POTASSIUM CHLORIDE ER 10 MEQ CAPSULE EXTENDED RELEASE TAKE ONE CAPSULE BY MOUTH EVERY DAY WITH FOOD , NOTES: 08/17/2019699 TAKING SIMVASTATIN 10 10MG TABLET 1 TABLET ORAL ONCE A DAY, NOTES: 08/17/2019699 TAKING LISINOPRIL 5 MG TABLET 1 TABLET ORALLY ONCE DAILY, NOTES: 08/17/2019699 TAKING TRAMADOL HCL 50 MG TABLET 1 TAB ORALLY EVERY 6 HRS NEEDED MDD:4, NOTES: 08/17/2019699 TAKING LYRICA 300 MG CAPSULE 1 CAPSULE ORALLY FOR PAIN TWICE A DAY MDD:2, NOTES: 08/17/2019699 NOT-TAKING KETOPROFEN 25 MG CAPSULE 2 CAPSULE WITH FOOD NEEDED ORALLY EVERY 6 HRS NOT-TAKING ACETAMINOPHEN 500 MG TABLET 1-2 TABLETS ORALLY Q6H PRN PAIN NOT-TAKING LIDOCAINE VISCOUS HCL 2 % SOLUTION 15 ML TO AFFECTED AREA NEEDED MOUTH/THROAT EVERY 3 HRS SWISH AND SPIT DISCONTINUED POTASSIUM CHLORIDE 10 MEQ CAPSULE EXTENDED RELEASE 1 CAPSULE WITH FOOD ORALLY ONCE A DAY MEDICATION LIST REVIEWED AND RECONCILED WITH THE PATIENT PAST MEDICAL HISTORY SLEEP APNEA USES CPAP COPD NO O2 HTN HLD ARTHRITIS - MULTIPLE LOCATIONS DEPRESSION AND ANXIETY DIABETES DIAGNOSED 10/04 - IN REMISSION SINCE GBSX PERIPHERAL NEUROPATHY S/P GASTRIC BYPASS INJURY, OTHER AND UNSPECIFIED, SHOULDER AND UPPER ARM OBESITY HISTORY OF DENNISE-EN-Y GASTRIC BYPASS CONGESTIVE HEART FAILURE PNEUMOCOCCAL VACCINE 2010 ALLERGIES ZAMBIAN PEPPER TREES AND MELALEUCA TREES VICODIN: NAUSEA - SIDE EFFECTS SURGICAL HISTORY TUMOR REMOVED IN RIGHT HIP AT 5Y/O SEBACEOUS CYST REMOVAL/ 09/[address] MARQUES 06/10/2013 COLONOSCOPY 2016 LEFT ROTATOR CUFF 2018 RIGHT SHOULDER SURGERY 2017 FAMILY HISTORY FATHER: , CAD S/P [place] AT 63, DIABETES, HTN, DIAGNOSED WITH DIABETES, UNSPECIFIED HEART DISEASE MOTHER: ALIVE, COPD, CAD S/P STENTS, CRF, THYROID PROBLEMS SIBLINGS: ALIVE, STROKE-OLDER BROTHER. OLDER SISTER-DM, OLDER SISTER-DM, OLDER BROTHER-CYSTIC ULCERS, UNSPECIFIED HEART DISEASE, OTHER MALIGNANT NEOPLASM OF UNSPECIFIED SITE DAUGHTER(S): ALIVE 2 BROTHER(S) , 2 SISTER(S) - HEALTHY. 2DAUGHTER(S) - HEALTHY. AUNTS WITH CANCER. SOCIAL HISTORY GENERAL: TOBACCO USE ARE YOU A:CURRENT SMOKER ARE YOU INTERESTED IN QUITTING?READY TO QUIT CUTTING BACK CURRENTLY. COUNSELED THE PATIENT ON TOBACCO USE, CESSATION [id number]/25/2020 HOW MANY CIGARETTES A DAY DO YOU SMOKE?5 OR LESS HOW SOON AFTER YOU WAKE UP DO YOU SMOKE YOUR FIRST CIGARETTE?31-60 MIN HOW OFTEN DO YOU SMOKE CIGARETTES?SOME DAYS, BUT NOT EVERY DAY PATIENT COUNSELED ON THE DANGERS OF TOBACCO USE AND URGED TO QUIT:08/16/2019 LATEX QUESTIONNAIRE LATEX ALLERGY : HAVE YOU EVER DEVELOPED ANY TYPE OF REACTION AFTER HANDLING LATEX PRODUCTS SUCH RUBBER GLOVES, CONDOMS, DIAPHRAGMS, BALLOONS, SOCKS, OR UNDERWEAR?NO LATEX ALLERGY : HAVE YOU EVER DEVELOPED ANY TYPE OF REACTION DURING OR AFTER DENTAL APPOINTMENT, VAGINAL/RECTAL EXAMINATION, SURGICAL PROCEDURE, OR ANY OTHER EXPOSURE?NO LATEX RISK : HAVE YOU EVER HAD ANY DIFFICULTY BREATHING OR HIVES AFTER EATING OR HANDLING ANY FRUITS, OR VEGETABLES; SUCH KIWI, BANANAS, STONE FRUITS, OR CHESTNUTSNO LATEX RISK : DO YOU HAVE A PREVIOUS PERSONAL HISTORY OF MORE THAN NINE SURGERIES, SPINA BIFIDA, OR REPEATED CATHERIZATIONS? NO LATEX RISK : ARE YOU FREQUENTLY EXPOSED TO LATEX PRODUCTS IN YOUR OCCUPATION?NO DATE ASKED : 08/16/2019 BMI CARE GOAL FOLLOW-UP ABOVE NORMAL BMI FOLLOW-UPDIETARY MANAGEMENT EDUCATION, GUIDANCE, AND COUNSELING ALCOHOL SCREENING DID YOU HAVE A DRINK CONTAINING ALCOHOL IN THE PAST YEAR?NO POINTS0 INTERPRETATIONNEGATIVE RECREATIONAL DRUG USE DRUG USE?NO CAFFEINE CAFFEINE USE?YES HOW OFTEN AND HOW MUCH? 2/DAY SEXUAL HX HAD SEX IN THE LAST 12 MONTHS (VAGINAL, ORAL, OR ANAL)?NO HIV / HEP-C SCREENING HIV TEST OFFERED TO PATIENT:YES DATE OFFERED:09/16/2016 TEST ACCEPTED:NO HEP-C TEST OFFERED TO PATIENT:YES DATE OFFERED:09/16/2016 REASON:PATIENT DECLINED TEST ACCEPTED:NO REASON:PATIENT DECLINED TEMPLE [id number] LANGUAGE IRANIAN. EDUCATION LEVEL OF EDUCATION:FINISHED HIGH SCHOOL LEARNING BARRIERS / SPECIAL NEEDS CHANGE FROM LAST VISIT?NO BARRIERS TO LEARNING?NO HEARING IMPAIRED?YES RINGING IN EARS VISION IMPAIRED?YES COGNITIVELY IMPAIRED?NO :CORRECTIVE LENSES READINESS TO LEARN?YES LEARNING PREFERENCES?NO LEARNING CAPABILITIES PRESENT?YES EMOTIONAL BARRIERS?NO SPECIAL DEVICES?NO OFFICE MAIL CLERK NEEDED?NO DOMESTIC VIOLENCE DO YOU FEEL SAFE IN YOUR ENVIRONMENT?YES OCCUPATION: UNEMPLOYED. DIET: SPECIAL DIET FOR GASTRIC BYPASS. EXERCISE: NO REGULAR EXERCISE DUE TO OBESITY/SPINAL CLAUDICATION. MARITAL STATUS: SINGLE. OTHERS AT HOME: SON -IN-LAW. PAIN CLINIC PFS, CLERGY, PUBLIC HEALTH REFERRALS WAS THE PROVIDER NOTIFIED OF ANY PERTINENT INFO?YES HAS THE PATIENT BEEN EDUCATED REGARDING HIS/HER PLAN OF CARE?YES HAS THE PATIENT BEEN EDUCATED REGARDING PAIN, THE RISK FOR PAIN, THE IMPORTANCE OF EFFECTIVE PAIN MANAGEMENT, AND THE PAIN ASSESSMENT PROCESS?YES ADVANCE DIRECTIVE ADVANCE DIRECTIVE DISCUSSED WITH PATIENT:YES HCP - DAUGHTER BRENNEN VELÁZQUEZ HOSPITALIZATION/MAJOR DIAGNOSTIC PROCEDURE ABOVE SURGERIES FALL 12/2015 VITAL SIGNS WT 287.6 LBS, HT 72 IN, BMI 39.00 INDEX, BP 142/72 MM HG, HR 67 /MIN, RR 16 /MIN, TEMP 97.0 F, OXYGEN SAT % 95%, SAFE IN ENV? (Y/N) YES, NA INITIALS AW 0906, REVIEWED BY: NOHEMI. EXAMINATION GENERAL EXAMINATION: THE PATIENT IS ALERT, ORIENTED TIMES THREE AND COOPERATIVE. HEART SHOWS REGULAR RHYTHM, NO MURMURS AND NO GALLOPS. LUNGS ARE CLEAR TO AUSCULTATION. 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 PROTRUSION OF CERVICAL INTERVERTEBRAL DISC [facility] GUIDE SPINE INJECTION (PAIN)[id number] PROCEDURES PAIN NURSING RECORD PRE-PROCEDURE IV SITE RIGHT HAND, IV STARTED # 22, IV STARTED BY: No CHRISTINE RN, IV ATTEMPTS 1 PROCEDURE IN ROOM 0958, PHYSICIAN IN ROOM 1004, START 1010, FINISH 1014, PHYSICIAN OUT OF ROOM 1016, OUT OF ROOM 1021, STEROID DEXAMETHASONE, O2 RA, ECG NORMAL SINUS, PATIENT SHIELDED YES, SAFETY STRAP YES, PREP BETADINE BY Andry AMBROSE RN, IV INFUSED N/A, DRESSING TEGADERM BY DR LEAHY LOC: BETI KOWALSKI 08/17/2019 10:10:53 AM > , 1. ALERT, ORIENTED RESP: DEXTHOMASBETI 08/17/2019 10:10:58 AM > , 1. REGULAR, NO DYSPNEA COLOR: THOMAS KOWALSKILE 08/17/2019 10:11:01 AM > , 1. PINK SKIN: THOMAS KOWALSKILE 08/17/2019 10:11:07 AM > , 1. WARM, DRY POSITION: DEXTHOMASBETI 08/17/2019 10:11:11 AM > , 1. PRONE VITALS: THOMAS KOWALSKILE 08/17/2019 10:11:15 AM > 132/77-57-18-97% 08/17/2019 1021> 152/58-16-34-100% 08/17/2019 1027 > 146/69-61-20-98% DISCHARGE: POST PAIN 06/02- NECK, DRESSING SITE DRY AND INTACT, IV DISCONTINUED, SITE CLEAR, CATHETER INTACT, GAIT STEADY, TEACHING COMPLETED, PATIENT ACKNOWLEDGES UNDERSTANDING YES, PATIENT DISCHARGED AT 1034 PN CERVICAL EPIDURAL PRE PROCEDURE DIAGNOSIS CERVICAL DISC DISORDER WITH RADICULOPATHY POST PROCEDURE DIAGNOSIS CERVICAL DISC DISORDER WITH RADICULOPATHY PROCEDURE CERVICAL EPIDURAL STEROID INJECTION UNDER FLUOROSCOPIC GUIDANCE SURGEON DR. USHA LEAHY INTERACTIVE MEDIA SPECIALIST NONE ANESTHESIA LOCAL PRE PROCEDURE NOTE THE PATIENT HAS A HISTORY OF CHRONIC CERVICAL PAIN. I EVALUATED THE PATIENT AND REVIEWED THE CHART. I WENT OVER THE RISKS, BENEFITS AND ASSOCIATED WITH THIS PROCEDURE. I DISCUSSED THAT THE USE OF STEROIDS MAY CONTRIBUTE TO IMMUNOSUPPRESSION OF THE PATIENT'S BODY AGAINST INFECTIONS SUCH COVID-19. THE PATIENT IS AWARE OF THE POTENTIAL COMPLICATIONS ASSOCIATED WITH THIS VIRUS, INCLUDING, BUT NOT LIMITED TO, . THE PATIENT WOULD LIKE TO PROCEED AND GIVE CONSENT TO PERFORMED THE PROCEDURE. THE PATIENT DENIES UNEXPLAINABLE WEIGHT LOSS, FEVER, CHILLS, OR NEW CHANGES IN URINARY OR BOWEL CONTROL. THE PATIENT IS COVID-19 NEGATIVE DESCRIPTION OF PROCEDURE THE PATIENT WAS BROUGHT TO THE PROCEDURE ROOM AND PLACED IN THE PRONE POSITION. THE CERVICOTHORACIC AREA WAS CLEANED WITH BETADINE SOLUTION AND DRAPED ASEPTICALLY. THE PROCEDURE WAS DONE UNDER STERILE CONDITIONS. A TIMEOUT WAS PERFORMED WHERE LATERALITY AND THE SITE OF THE PROCEDURE WERE CHECKED AND CONFIRMED WITH EVERYONE IN THE ROOM. UNDER FLUOROSCOPIC GUIDANCE, THE TARGET WAS SELECTED AT THE INTERLAMINAR LEVEL OF C7-T1. LIDOCAINE WAS USED TO NUMB THE SKIN AND THE SUBCUTANEOUS TISSUE BELOW IT. EPIDURAL TUOHY NEEDLE, 17-GAUGE, WAS ADVANCED UNDER FLUOROSCOPIC GUIDANCE AND FOLLOWING PATIENT FEEDBACK UNTIL THE EPIDURAL SPACE WAS REACHED 7 CM DEEP INTO THE SKIN BY THE LOSS OF RESISTANCE TECHNIQUE. ISOVUE-M DYE 30%, 0.25 ML, WAS INJECTED SHOWING ADEQUATE SPREAD OF THE DYE. THEN, A SOLUTION OF 3 ML OF NORMAL SALINE WITH DEXAMETHASONE 10 MG WAS INJECTED SLOWLY FOLLOWING PATIENT FEEDBACK. THERE WAS NO EVIDENCE OF BLOOD, PARESTHESIA OR CEREBROSPINAL FLUID DURING THE PROCEDURE. ESTIMATED BLOOD LOSS WAS LESS THAN 5 ML. THE PATIENT WAS SENT TO THE RECOVERY ROOM. THE PATIENT WAS MOVING THE EXTREMITIES AND DOING WELL. THERE WERE NO COMPLICATIONS DURING THE PROCEDURE. FLUOROSCOPY TIME WAS 8 SECONDS POST PROCEDURE NOTE THE PATIENT WILL BE SEEN IN A FOLLOW UP IN THE NEXT FEW WEEKS. I AM LOOKING FOR LONG LASTING RELIEF FOR THE PATIENT WITH THIS INTERVENTION. INSTRUCTIONS WERE GIVEN, QUESTIONS WERE ANSWERED, AND THE PATIENT EXPRESSED UNDERSTANDING AND AGREES WITH THE PLAN. I, ZULEIKA LUGO, DOCUMENTED THE ABOVE INFORMATION ACTING A SCRIBE FOR DR. LEAHY. I HAVE REVIEWED THE ABOVE DOCUMENT, WRITTEN BY ZULEIKA LUGO, CONTROLLER INSTRUCTOR, AND I VERIFY THAT IT IS ACCURATE PROCEDURE CODES 51581 CERVICAL/THORACIC W/ IMAGING DISPOSITION & COMMUNICATION FOLLOW UP F/UP WITH REGISTERED NURSE SUPERVISOR (REASON: POST ERIN) ELECTRONICALLY SIGNED BY USHA LEAHY MD, MD ON 08/17/2019 AT 01:07 PM EDT DISCLAIMER : THIS IS A VISIT SUMMARY EXTRACTED FROM THE [employer] CHART. IT IS NOT A COPY OF THE [employer] PROGRESS NOTE. ROBERT
== END ==
LOC: M PAIN 09:00
PROVIDERS: ATTEND Anesthesiology
DX: M50.10 Cervical disc disorder with radiculopathy, unspecified cervical region (principal); M50.20 Other cervical disc displacement, unspecified cervical region
CPT/HCPCS: 62321; J1100; Q9967

== ENCOUNTER → 2019-12-07 | Outpatient (CLI) | payer MEDICARE ==
[~2019-12-07] MED LIST changes: -ISOVUE-M 300 61% 15ML VIAL As Ordered ONE; -LIDOCAINE 1% SDV 30ML VIAL As Ordered ONE; -dexameTHASONE 10MG/1ML VIAL PRES.FREE (J1100 PER 1MG) As Ordered ONE; -diazePAM 5 MG TAB As Ordered ONE
--- NOTE | 2019-12-09 15:42 | REP ---
LOW-DOSE LUNG SCREENING CT CLINICAL: History of nicotine dependence. TECHNIQUE: Axial noncontrast images from the thoracic inlet to the upper abdomen using low-dose lung screening technique. COMPARISON: 10/20/2018, 01/04/2018. FINDINGS: Relatively stable chronic appearing pleural parenchymal changes are appreciated primarily involving the basilar lingula and left lower lobe and to a lesser extent the right lower lobe. Findings include a somewhat rounded area of suspected chronic rounded atelectasis along the subpleural left lower lobe measuring 2.6 cm (Image 80), as well as a small focal area of nodular scarring along the periphery of the right lower lobe measuring approximately 1.5 cm. These findings appear similar to the prior examinations. Remainder of lung ramires are well-aerated and without further obvious consolidation or significant nodule/mass lesion identified. Previously noted pleural effusions have resolved. The tracheobronchial tree is patent. Mediastinum again demonstrates atherosclerotic changes to the thoracic aorta and coronary arteries. IMPRESSION: Relatively chronic progressive pleural parenchymal changes at the bilateral lung bases are suggested including presumed areas of rounded atelectasis and nodular scarring in the left lower lobe and right lower lobe respectively. These findings less likely represent active disease. However, follow-up at six months may be warranted to confirm stability as these were partially obscured by pleural effusions on prior examinations. MTDD
== END ==
LOC: M RAD 07:44
PROVIDERS: ATTEND Physician Assistant
DX: F17.218 Nicotine dependence, cigarettes, with other nicotine-induced disorders (principal); Z12.2 Encounter for screening for malignant neoplasm of respiratory organs

== ENCOUNTER → 2020-03-12 | Outpatient (REF) | payer MEDICARE ==
[~2020-03-12] MED LIST changes: -AMIT25TA PO; +AMIT25TA17 PO
== END ==
LOC: M SFHCPLAZ 11:56
PROVIDERS: ATTEND Family Medicine
DX: I50.9 Heart failure, unspecified (principal); E11.42 Type 2 diabetes mellitus with diabetic polyneuropathy

== ENCOUNTER → 2020-03-16 | Outpatient (CLI) | payer MEDICARE ==
[~2020-03-16] MED LIST changes: -LISI-538 PO; +LISI10TA22 PO; -LISI10TA4 PO; +LISI20TA33 PO
--- NOTE | 2020-03-16 15:53 | REPPI ---
INDICATION: BILATERAL HIP PAIN. COMPARISON: None. TECHNIQUE: AP view of the pelvis is obtained and AP and frogleg views of each hip are provided. FINDINGS: The bony pelvic ring is intact. Femoral heads are smooth and rounded hip joint spaces are preserved. Sacrum and SI joints are intact. Symphysis pubis is unremarkable. There are degenerative disc changes in the lumbar spine. Periarticular soft tissues are normal. There is mild tendon insertion site spurring on the lesser trochanter of the left hip. Bilateral os acetabuli are noted. Incidental note is made of air-filled mildly dilated small bowel loops in the central abdomen nonspecific. IMPRESSION: No acute bony abnormality. Mildly dilated air-filled loops of small bowel in the central abdomen. <Electronically signed by Vivek Arango > 03/16/20 [id number]
== END ==
LOC: M PLAIMG 10:02
PROVIDERS: ATTEND Student in an Organized Health Care Education/Training Program
DX: M51.36 Other intervertebral disc degeneration, lumbar region (principal); M25.552 Pain in left hip; M25.551 Pain in right hip; I50.9 Heart failure, unspecified; E11.42 Type 2 diabetes mellitus with diabetic polyneuropathy

== ENCOUNTER → 2020-03-16 | Outpatient (REF) | payer MEDICARE ==
[2020-03-16 12:55] LABS: HEMATOCRIT 46.9 % (42.0-52.0); HEMOGLOBIN 15.4 g/dl (13.5-17.5); MEAN CORPUSCULAR HEMOGLOBIN 31.8 pg (27.0-33.0); MEAN CORPUSCULAR HGB CONC 32.8 g/dl (32.0-36.5); MEAN CORPUSCULAR VOLUME 96.7 fl (80.0-96.0); PLATELET COUNT, AUTOMATED 272 10^3/uL (150-450); RED BLOOD COUNT 4.85 10^6/uL (4.30-6.10); WHITE BLOOD COUNT 8.3 10^3/uL (4.0-10.0)
[2020-03-16 13:44] LABS: HEMOGLOBIN A1c 5.1 %
[2020-03-16 14:40] LABS: ALBUMIN 3.8 GM/DL (3.2-5.2); ALT/SGPT 30 U/L (12-78); BILIRUBIN,TOTAL 0.5 MG/DL (0.2-1.0); BLOOD UREA NITROGEN 13 MG/DL (7-18); CALCIUM LEVEL 9.5 MG/DL (8.5-10.1); CARBON DIOXIDE LEVEL 29 MEQ/L (21-32); CHLORIDE LEVEL 105 MEQ/L (98-107); CHOLESTEROL LEVEL 150 MG/DL (<200); CHOLESTEROL RISK RATIO 4.285 (<5); GLOMERULAR FILTRATION RATE > 60.0 (>56); GLUCOSE, FASTING 76 MG/DL (70-100); HDL CHOLESTEROL 35 MG/DL (>40); LDL CHOLESTEROL 94 MG/DL (<100); NON-HDL-C 115 MG/DL; NT-PRO BNP 55 PG/ML (<125); POTASSIUM SERUM 4.4 MEQ/L (3.5-5.1); SODIUM LEVEL 139 MEQ/L (136-145); TOTAL PROTEIN 7.1 GM/DL (6.4-8.2); TRIGLYCERIDES LEVEL 104 MG/DL (<150)
== END ==
LOC: M SFHCPLAZ 09:56
PROVIDERS: ATTEND Family Medicine
DX: I50.9 Heart failure, unspecified (principal); E11.42 Type 2 diabetes mellitus with diabetic polyneuropathy

== ENCOUNTER → 2020-03-29 | Outpatient (CLI) | payer MEDICARE ==
--- NOTE | 2020-04-04 03:00 | ECWPNPC ---
PATIENT NAME: GIACOMO MICHEL : 1965 GENDER: MALE VISIT DATE: 03/29/2020 DISCHARGE DATE: 03/29/20 1147 VISIT LOCKED DATE TIME: PHYSICIAN: ALEKSANDR NEWBERRY PHYSICIAN PAGER NO: ACTIVE RESOURCE: ALEKSANDR NEWBERRY REASON FOR APPOINTMENT 1. POST ERIN HISTORY OF PRESENT ILLNESS PAIN CENTER INTAKE QUESTIONS: DO YOU HAVE A HISTORY OF MRSA? :NO DO YOU TAKE A BLOOD THINNERS? :NO DO YOU HAVE ANY BLEEDING DISORDERS? :NO ANY NEW NUMBNESS OR WEAKNESS IN YOUR LEGS OR ARMS? :NO ANY PACEMAKER,DEFIBRILLATOR, OR DORSAL COLUMN STIMULATOR? :NO DO YOU HAVE ANY RASHES OR OPEN SORES? :NO ARE YOU ALLERGIC TO IV DYE? :NO ARE YOU DIABETIC? :NO ANY NEW PROBLEMS WITH YOUR MEDICATIONS? :NO HAVE YOU RECEIVED A VACCINE IN THE PAST 30 DAYS? :NO DO YOU PLAN TO RECEIVE A VACCINE IN THE NEXT 21 DAYS? :NO DO YOU NEED ANY PRESCRIPTION? :NO DO YOU TAKE ANY IMMUNOSUPPRESSIVE MEDICATIONS? :NO IS THERE A CHANCE YOU COULD BE ? :NO ARE YOU BREAST FEEDING? :NO GENERAL: HERE FOR POST PROCEDURE FOLLOW-UP. HAD CERVICAL EPIDURAL STEROID INJECTION IN JULY 2019. REPORTING IMPROVEMENT IN HIS PAIN UP UNTIL A MONTH AGO. CURRENTLY PATIENT IS BEING WORKED UP FOR POSSIBLE CARDIAC ISSUES. DENIES COMPLAINTS OF CHEST PAIN OR SHORTNESS OF BREATH TODAY. EXPERIENCING PALPITATIONS.-. FALL RISK SCREENING: SCREENING :ONE FALL WITHOUT INJURY IN THE PAST YEAR BRUISING. PATIENT DID NOT SEEK MEDICAL TREATMENT. PAIN SCREENING: PATIENT HAS A COMPLAINT OF ACUTE OR CHRONIC PAIN :YES LOCATION OF PAIN:NECK, LEFT SHOULDER, LOW BACK, LEFT HIP, RIGHT HIP INTENSITY OF PAIN (SCALE OF 1 TO 10):6 WHAT DOES YOUR PAIN FEEL LIKE:INTERMITTENT, TENDER, SHOOTING TINGLING DURATION:INTERMITTENT PAIN IS INCREASED BY:ACTIVITIES, PROLONGED STANDING PAIN IS DECREASED BY:USE OF PAIN MEDICATIONS WALKING AND LYRICA NURSING NOTE: -. CURRENT MEDICATIONS TAKING SPIRIVA HANDIHALER 18 MCG CAPSULE 1 CAPSULE INHALATION ONCE A DAY TAKING VENTOLIN HFA 90 MCG/ACT AEROSOL SOLUTION 2 PUFFS INHALATION EVERY 4 HOURS NEEDED TAKING VITAMIN B-12 500 MCG TABLET 1 TABLET ORALLY TWICE DAILY (JERALD) TAKING CALCIUM + D 600-400 MG TABLET 1/2 TABLET ORALLY TWICE DAILY TAKING MULTIVITAMIN 1 TABLET 1 CHEWABLE TABLET ORALLY THREE TIMES DAILY TAKING LIDOCAINE 5 % OINTMENT 1 APPLICATION TO AFFECTED AREA NEEDED EXTERNALLY TO THE KNEES AND NECK DAILY, NOTES: PRN TAKING MAGNESIUM OXIDE 400 MG TABLET 1 TAB(S) ORALLY DAILY, NOTES: 08/17/2019 0700 TAKING CPAP MACHINE DIRECTED _; SETTINGS: 15 MMHG; WITH TUBING AND SUPPLIES/MASK QHS; ICD10: G47.33 TAKING CPAP MASK DIRECTED TOPICALLY; RESTMED MEDIUM MASK WITH TUBING AND SUPPLIES QHS; ICD10: G47.33 TAKING RIZATRIPTAN BENZOATE 10 MG TABLET 1 TABLET ORALLY ONCE A DAY TAKING SIMVASTATIN 10 MG TABLET TAKE 1 TABLET BY MOUTH ONCE A DAY TAKING LISINOPRIL 5 MG TABLET 1 TABLET ORALLY ONCE DAILY TAKING TIZANIDINE HCL 4 MG TABLET 1 TABLET NEEDED ORALLY THREE TIMES A DAY TAKING FLONASE 50 MCG/ACT SUSPENSION 1 SPRAY IN EACH NOSTRIL NASALLY BID, NOTES: 08/16/2019 2000 TAKING ADVAIR DISKUS 500-50 MCG/DOSE AEROSOL POWDER BREATH ACTIVATED 1 PUFF INHALATION TWICE A DAY TAKING LASIX 20 MG TABLET TAKE ONE TABLET BY MOUTH EVERY DAY ORALLY DAILY, NOTES: 08/17/2019 0700 TAKING POTASSIUM CHLORIDE 10 MEQ CAPSULE EXTENDED RELEASE 1 CAPSULE WITH FOOD ORALLY ONCE A DAY TAKING OMEPRAZOLE 40 MG CAPSULE DELAYED RELEASE 1 CAPSULE ORALLY ONCE A DAY TAKING LYRICA 300 MG CAPSULE 1 CAPSULE ORALLY FOR PAIN TWICE A DAY MDD:2 TAKING TRAMADOL HCL 50 MG TABLET 1 TAB ORALLY EVERY 6 HRS NEEDED MDD:4 MEDICATION LIST REVIEWED AND RECONCILED WITH THE PATIENT PAST MEDICAL HISTORY SLEEP APNEA USES CPAP COPD NO O2 HTN HLD ARTHRITIS - MULTIPLE LOCATIONS DEPRESSION AND ANXIETY DIABETES DIAGNOSED 10/04 - IN REMISSION SINCE GBSX PERIPHERAL NEUROPATHY S/P GASTRIC BYPASS INJURY, OTHER AND UNSPECIFIED, SHOULDER AND UPPER ARM OBESITY HISTORY OF DENNISE-EN-Y GASTRIC BYPASS CONGESTIVE HEART FAILURE PNEUMOCOCCAL VACCINE 2010 ALLERGIES [place] PEPPER TREES AND MELALEUCA TREES VICODIN: NAUSEA - SIDE EFFECTS SOCIAL HISTORY GENERAL: TOBACCO USE ARE YOU A:CURRENT SMOKER HOW OFTEN DO YOU SMOKE CIGARETTES?SOME DAYS, BUT NOT EVERY DAY HOW SOON AFTER YOU WAKE UP DO YOU SMOKE YOUR FIRST CIGARETTE?31-60 MIN HOW MANY CIGARETTES A DAY DO YOU SMOKE?6-10 ARE YOU INTERESTED IN QUITTING?READY TO QUIT CUTTING BACK CURRENTLY. PATIENT COUNSELED ON THE DANGERS OF TOBACCO USE AND URGED TO QUIT:08/16/2019 COUNSELED THE PATIENT ON TOBACCO USE, CESSATION [id number]/25/2020 LATEX QUESTIONNAIRE LATEX ALLERGY : HAVE YOU EVER DEVELOPED ANY TYPE OF REACTION AFTER HANDLING LATEX PRODUCTS SUCH RUBBER GLOVES, CONDOMS, DIAPHRAGMS, BALLOONS, SOCKS, OR UNDERWEAR?NO LATEX ALLERGY : HAVE YOU EVER DEVELOPED ANY TYPE OF REACTION DURING OR AFTER DENTAL APPOINTMENT, VAGINAL/RECTAL EXAMINATION, SURGICAL PROCEDURE, OR ANY OTHER EXPOSURE?NO DATE ASKED : 08/16/2019 LATEX RISK : HAVE YOU EVER HAD ANY DIFFICULTY BREATHING OR HIVES AFTER EATING OR HANDLING ANY FRUITS, OR VEGETABLES; SUCH KIWI, BANANAS, STONE FRUITS, OR CHESTNUTSNO LATEX RISK : DO YOU HAVE A PREVIOUS PERSONAL HISTORY OF MORE THAN NINE SURGERIES, SPINA BIFIDA, OR REPEATED CATHERIZATIONS? NO LATEX RISK : ARE YOU FREQUENTLY EXPOSED TO LATEX PRODUCTS IN YOUR OCCUPATION?NO ALCOHOL USE: OCCASION 1-2 TIMES YEARLY. BMI CARE GOAL FOLLOW-UP ABOVE NORMAL BMI FOLLOW-UPDIETARY MANAGEMENT EDUCATION, GUIDANCE, AND COUNSELING ALCOHOL SCREENING DID YOU HAVE A DRINK CONTAINING ALCOHOL IN THE PAST YEAR?NO POINTS0 INTERPRETATIONNEGATIVE RECREATIONAL DRUG USE DRUG USE?NO CAFFEINE CAFFEINE USE?YES HOW OFTEN AND HOW MUCH? 2/DAY SEXUAL HX HAD SEX IN THE LAST 12 MONTHS (VAGINAL, ORAL, OR ANAL)?NO HIV / HEP-C SCREENING HIV TEST OFFERED TO PATIENT:YES DATE OFFERED:09/16/2016 TEST ACCEPTED:NO HEP-C TEST OFFERED TO PATIENT:YES DATE OFFERED:09/16/2016 REASON:PATIENT DECLINED TEST ACCEPTED:NO REASON:PATIENT DECLINED [id number] BULGARIAN. EDUCATION LEVEL OF EDUCATION:FINISHED HIGH SCHOOL LEARNING BARRIERS / SPECIAL NEEDS CHANGE FROM LAST VISIT?NO BARRIERS TO LEARNING?NO HEARING IMPAIRED?YES RINGING IN EARS VISION IMPAIRED?YES :CORRECTIVE LENSES COGNITIVELY IMPAIRED?NO READINESS TO LEARN?YES LEARNING PREFERENCES?NO LEARNING CAPABILITIES PRESENT?YES EMOTIONAL BARRIERS?NO SPECIAL DEVICES?NO SPRING SALVAGE WORKER NEEDED?NO DOMESTIC VIOLENCE DO YOU FEEL SAFE IN YOUR ENVIRONMENT?YES OCCUPATION: UNEMPLOYED. DIET: SPECIAL DIET FOR GASTRIC BYPASS. EXERCISE: NO REGULAR EXERCISE DUE TO OBESITY/SPINAL CLAUDICATION. MARITAL STATUS: SINGLE. OTHERS AT HOME: SON -IN-LAW. - WAS THE PROVIDER NOTIFIED OF ANY PERTINENT INFO?YES HAS THE PATIENT BEEN EDUCATED REGARDING HIS/HER PLAN OF CARE?YES HAS THE PATIENT BEEN EDUCATED REGARDING PAIN, THE RISK FOR PAIN, THE IMPORTANCE OF EFFECTIVE PAIN MANAGEMENT, AND THE PAIN ASSESSMENT PROCESS?YES ADVANCE DIRECTIVE ADVANCE DIRECTIVE DISCUSSED WITH PATIENT:YES HCP - DAUGHTER BRENNEN VELÁZQUEZ REVIEW OF SYSTEMS CONSTITUTIONAL: ANY RECENT FEVER NO . CHILLS NO . WEIGHT CHANGE OF UNKNOWN REASONS NO . GASTROENTEROLOGY: NEW UNEXPLAINABLE CHANGES IN BOWEL CONTROL NO . CONSTIPATION NO . GENITOURINARY: ANY NEW CHANGE IN BLADDER CONTROL? NO . NEUROLOGY: NEW ONSET DIZZINESS OR NEUROLOGICAL CHANGES NOT MENTIONED NO . NEW NUMBNESS OR PAIN PATTERNS NOT MENTIONED AND PERTINENT TO TODAY'S VISIT NO . CARDIOLOGY: NEW CHEST PRESSURE NO. BEING EVALUATED FOR PALPITATIONS WITH UPCOMING TESTING VIA CARDIOLOGY . NEW CHEST PAIN NO . RESPIRATORY: UNEXPLAINABLE COUGH NO . NEW SHORTNESS OF BREATH NO . VITAL SIGNS WT 314.6 LBS, HT 72 IN, BMI 42.66 INDEX, BP 163/74 MM HG, REPEAT BP 152/76 MM HG, HR 75 /MIN, RR 18 /MIN, TEMP 98.0 F, OXYGEN SAT % 95%, SAFE IN ENV? (Y/N) YES, NA INITIALS AW 1102, REVIEWED BY: KENNETH BLOOD PRESSURE TAKEN AND PROVIDED TO PROVIDER. MARCE GALLAGHER MA. EXAMINATION GENERAL EXAMINATION: LUNGS:LUNG SOUNDS ARE CLEAR . HEART:HEART RATE REGULAR . MUSCULOSKELETAL:*, MUSCLE STRENGTH TESTING 5/5 BILATERAL UPPER EXTREMITIES. . CERVICAL:+ FOR PAIN WITH PALPATION OF CERVICAL SPINE. + FOR PAIN WITH PALPATION OF CERVICAL PARASPINALS. . DIAGNOSTIC TESTS REVIEWEDCERVICAL MRI. 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 IT IS NOT A COPY OF THE [employer] PROGRESS NOTE. MTDD
== END ==
LOC: M PAIN 10:45
PROVIDERS: ATTEND Nurse Practitioner Family
DX: G89.29 Other chronic pain (principal); M47.22 Other spondylosis with radiculopathy, cervical region; G47.30 Sleep apnea, unspecified; J44.9 Chronic obstructive pulmonary disease, unspecified; I10 Essential (primary) hypertension; E78.5 Hyperlipidemia, unspecified; M15.9 Polyosteoarthritis, unspecified; F32.9 Major depressive disorder, single episode, unspecified; F41.9 Anxiety disorder, unspecified; Z98.84 Bariatric surgery status; E66.9 Obesity, unspecified; Z68.41 Body mass index [BMI] 40.0-44.9, adult; F17.210 Nicotine dependence, cigarettes, uncomplicated; Z79.891 Long term (current) use of opiate analgesic; Z79.899 Other long term (current) drug therapy; Z88.5 Allergy status to narcotic agent

== ENCOUNTER → 2020-04-16 | Outpatient (CLI) | payer MEDICARE, OTHER ==
--- NOTE | 2020-04-17 10:50 | ECHO ---
DATE OF PROCEDURE: 04/16/2020 Age: 54 Gender: Male Height: 182 cm Weight: 142 kg REFERRING PHYSICIAN: Shakir Orourke D.O. INDICATION: Congestive heart failure. MEASUREMENTS: IVS 0.7 cm LV 6.6 cm LVPW 1.1 cm LA 4.2 cm Aorta 3.2 cm RV 4.0 cm IVC 1.6 cm DOPPLER MEASUREMENT Mitral E wave velocity 108 Mitral A wave 78 E prime septal 11.1 E prime lateral 7.6 FINDINGS: This study is of rather limited technical quality corresponding to the patients morbid obesity. Underlying sinus rhythm. Left ventricle is dilated, but appears to have preserved contractility. Based on limited views, I estimate normal or near normal systolic function. I certainly cannot rule out subtle wall motion abnormalities. Right ventricle appears at least mildly dilated. Both atria appear normal. Aortic, mitral, and tricuspid valves appear normal. Pulmonic valve was not seen. No pericardial effusion is noted. Inferior vena cava is normal size and appropriately collapses with inspiration. Aortic root is normal. Aortic arch and abdominal aorta were not well seen. Doppler interrogation reveals competent aortic valve. There is trace mitral and tricuspid insufficiency. Calculated pulmonary artery pressure is within normal values. Mitral inflow pattern and tissue Doppler imaging of the mitral annulus reveal normal diastolic function. CONCLUSIONS: 1. Study is of fair technical quality, underlying sinus rhythm. 2. Dilated left ventricle with overall preserved LV systolic function and also preserved diastolic function. 3. No hemodynamically significant valvular disease. 4. Suggestive of normal central venous pressure and normal pulmonary artery pressure. MTDD
== END ==
LOC: M CARPUL 10:14
PROVIDERS: ATTEND Student in an Organized Health Care Education/Training Program
DX: I50.9 Heart failure, unspecified (principal)

== ENCOUNTER → 2020-05-16 | Outpatient (CLI) | payer OTHER ==
[~2020-05-16] MED LIST changes: -AMIT10TA PO; +AMIT10TA7 PO
--- NOTE | 2020-05-19 01:30 | ECWPNPC ---
PATIENT NAME: GIACOMO MICHEL : 1965 GENDER: MALE VISIT DATE: 05/16/2020 DISCHARGE DATE: 05/16/20 1054 VISIT LOCKED DATE TIME: PHYSICIAN: ALEKSANDR NEWBERRY PHYSICIAN PAGER NO: ACTIVE RESOURCE: ALEKSANDR NEWBERRY REASON FOR APPOINTMENT 1. RECIEVED CLEARANCE/DISCUSS INJECTIONS HISTORY OF PRESENT ILLNESS GENERAL: PATIENT IS BEING SEEN TODAY TO EVALUATE CARDIOLOGY CLEARANCE THAT HE STATES PRIMARY CARE ORDERED TESTING AND EVERYTHING CAME OUT FINE. REVIEWED DR. SMITH'S LAST VISIT NOTE DATED 04/30/2020. UNDER TREATMENT PLAN IT STATES PATIENT NEEDS TO BE SEEN BY CARDIOLOGY. PATIENT HAS NOT BEEN SEEN BY CARDIOLOGY. 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 PATIENT STATES HE CAN'T EVEN AFFORD CO-PAY WHEN COMING IN HERE FOR VISITS. PATIENT HAS A LOOP RECORDER IN PLACE THAT HAS BEEN THERE FOR 3 YEARS AFTER A FALL INJURY. WE WILL ATTEMPT TO GET MEDICAL CLEARANCE FOR CERVICAL EPIDURAL STEROID INJECTION FROM DR. SMITH BUT DR. SMITH WOULD HAVE TO EVALUATE IF CARDIOLOGY CLEARANCE IS NECESSARY. PATIENT IS VERY UPSET AND DISAPPOINTED THAT WE CAN'T GO AHEAD WITH THE INJECTION. I DID INFORM HIM ALSO THAT INSURANCE MAY NOT COVER CERVICAL EPIDURAL STEROID INJECTION.-. FALL RISK SCREENING: SCREENING : ONE FALL REPORTED IN THE LAST YEAR WITHOUT INJURY. PAIN SCREENING: PATIENT HAS A COMPLAINT OF ACUTE OR CHRONIC PAIN :YES LOCATION OF PAIN:NECK, LEFT SHOULDER, LOW BACK, LEFT HIP, RIGHT HIP INTENSITY OF PAIN (SCALE OF 1 TO 10):7 WHAT DOES YOUR PAIN FEEL LIKE:BURNING, THROBBING DURATION:CONTINOUS, CONSTANT PAIN IS INCREASED BY: LAYING DOWN PAIN IS DECREASED BY:USE OF PAIN MEDICATIONS NURSING NOTE: -. PAIN CENTER INTAKE QUESTIONS: DO YOU HAVE A HISTORY OF MRSA? :NO DO YOU TAKE A BLOOD THINNERS? :NO DO YOU HAVE ANY BLEEDING DISORDERS? :NO ANY NEW NUMBNESS OR WEAKNESS IN YOUR LEGS OR ARMS? :YES ANY PACEMAKER,DEFIBRILLATOR, OR DORSAL COLUMN STIMULATOR? :NO LOOP RECORDER DO YOU HAVE ANY RASHES OR OPEN SORES? :YES TO CHIN AND FOREHEAD ARE YOU ALLERGIC TO IV DYE? :NO ARE YOU DIABETIC? :YES ANY NEW PROBLEMS WITH YOUR MEDICATIONS? :NO HAVE YOU RECEIVED A VACCINE IN THE PAST 30 DAYS? :NO DO YOU PLAN TO RECEIVE A VACCINE IN THE NEXT 21 DAYS? :NO DO YOU NEED ANY PRESCRIPTION? :NO DO YOU TAKE ANY IMMUNOSUPPRESSIVE MEDICATIONS? :NO DO YOU HAVE ANY KIDNEY OR LIVER DISEASE? :NO IS THERE A CHANCE YOU COULD BE ? :NO ARE YOU BREAST FEEDING? :NO CURRENT MEDICATIONS TAKING SPIRIVA HANDIHALER 18 MCG CAPSULE 1 CAPSULE INHALATION ONCE A DAY TAKING VENTOLIN HFA 90 MCG/ACT AEROSOL SOLUTION 2 PUFFS INHALATION EVERY 4 HOURS NEEDED TAKING VITAMIN B-12 500 MCG TABLET 1 TABLET ORALLY TWICE DAILY (JERALD) TAKING CALCIUM + D 600-400 MG TABLET 1/2 TABLET ORALLY TWICE DAILY TAKING MULTIVITAMIN 1 TABLET 1 CHEWABLE TABLET ORALLY THREE TIMES DAILY TAKING MAGNESIUM OXIDE 400 MG TABLET 1 TAB(S) ORALLY DAILY TAKING CPAP MACHINE DIRECTED _; SETTINGS: 15 MMHG; WITH TUBING AND SUPPLIES/MASK QHS; ICD10: G47.33 TAKING CPAP MASK DIRECTED TOPICALLY; RESTMED MEDIUM MASK WITH TUBING AND SUPPLIES QHS; ICD10: G47.33 TAKING RIZATRIPTAN BENZOATE 10 MG TABLET 1 TABLET ORALLY ONCE A DAY TAKING SIMVASTATIN 10 MG TABLET TAKE 1 TABLET BY MOUTH ONCE A DAY TAKING LISINOPRIL 5 MG TABLET 1 TABLET ORALLY ONCE DAILY TAKING TIZANIDINE HCL 4 MG TABLET 1 TABLET NEEDED ORALLY THREE TIMES A DAY TAKING FLONASE 50 MCG/ACT SUSPENSION 1 SPRAY IN EACH NOSTRIL NASALLY BID TAKING ADVAIR DISKUS 500-50 MCG/DOSE AEROSOL POWDER BREATH ACTIVATED 1 PUFF INHALATION TWICE A DAY TAKING POTASSIUM CHLORIDE 10 MEQ CAPSULE EXTENDED RELEASE 1 CAPSULE WITH FOOD ORALLY ONCE A DAY TAKING OMEPRAZOLE 40 MG CAPSULE DELAYED RELEASE 1 CAPSULE ORALLY ONCE A DAY TAKING TRAMADOL HCL 50 MG TABLET 1 TAB ORALLY EVERY 6 HRS NEEDED MDD:4 TAKING LYRICA 300 MG CAPSULE 1 CAPSULE ORALLY FOR PAIN TWICE A DAY MDD:2 TAKING LASIX 20 MG TABLET TAKE ONE TABLET BY MOUTH EVERY DAY ORALLY DAILY NOT-TAKING LIDOCAINE 5 % OINTMENT 1 APPLICATION TO AFFECTED AREA NEEDED EXTERNALLY TO THE KNEES AND NECK DAILY, NOTES: PRN MEDICATION LIST REVIEWED AND RECONCILED WITH THE PATIENT PAST MEDICAL HISTORY SLEEP APNEA USES CPAP COPD NO O2 HTN HLD ARTHRITIS - MULTIPLE LOCATIONS DEPRESSION AND ANXIETY DIABETES DIAGNOSED 10/04 - IN REMISSION SINCE GBSX PERIPHERAL NEUROPATHY S/P GASTRIC BYPASS INJURY, OTHER AND UNSPECIFIED, SHOULDER AND UPPER ARM OBESITY HISTORY OF DENNISE-EN-Y GASTRIC BYPASS CONGESTIVE HEART FAILURE PNEUMOCOCCAL VACCINE 2011 ALLERGIES [place] PEPPER TREES AND MELALEUCA TREES VICODIN: NAUSEA - SIDE EFFECTS SOCIAL HISTORY GENERAL: TOBACCO USE ARE YOU A:CURRENT SMOKER HOW OFTEN DO YOU SMOKE CIGARETTES?SOME DAYS, BUT NOT EVERY DAY HOW SOON AFTER YOU WAKE UP DO YOU SMOKE YOUR FIRST CIGARETTE?31-60 MIN HOW MANY CIGARETTES A DAY DO YOU SMOKE?6-10 ARE YOU INTERESTED IN QUITTING?READY TO QUIT CUTTING BACK CURRENTLY. PATIENT COUNSELED ON THE DANGERS OF TOBACCO USE AND URGED TO QUIT:08/16/2019 COUNSELED THE PATIENT ON TOBACCO USE, CESSATION [id number]/25/2020 LATEX QUESTIONNAIRE LATEX ALLERGY : HAVE YOU EVER DEVELOPED ANY TYPE OF REACTION AFTER HANDLING LATEX PRODUCTS SUCH RUBBER GLOVES, CONDOMS, DIAPHRAGMS, BALLOONS, SOCKS, OR UNDERWEAR?NO LATEX ALLERGY : HAVE YOU EVER DEVELOPED ANY TYPE OF REACTION DURING OR AFTER DENTAL APPOINTMENT, VAGINAL/RECTAL EXAMINATION, SURGICAL PROCEDURE, OR ANY OTHER EXPOSURE?NO DATE ASKED : 08/16/2019 LATEX RISK : HAVE YOU EVER HAD ANY DIFFICULTY BREATHING OR HIVES AFTER EATING OR HANDLING ANY FRUITS, OR VEGETABLES; SUCH KIWI, BANANAS, STONE FRUITS, OR CHESTNUTSNO LATEX RISK : DO YOU HAVE A PREVIOUS PERSONAL HISTORY OF MORE THAN NINE SURGERIES, SPINA BIFIDA, OR REPEATED CATHERIZATIONS? NO LATEX RISK : ARE YOU FREQUENTLY EXPOSED TO LATEX PRODUCTS IN YOUR OCCUPATION?NO ALCOHOL USE: OCCASION 1-2 TIMES YEARLY. BMI CARE GOAL FOLLOW-UP ABOVE NORMAL BMI FOLLOW-UPDIETARY MANAGEMENT EDUCATION, GUIDANCE, AND COUNSELING ALCOHOL SCREENING DID YOU HAVE A DRINK CONTAINING ALCOHOL IN THE PAST YEAR?NO POINTS0 INTERPRETATIONNEGATIVE RECREATIONAL DRUG USE DRUG USE?NO CAFFEINE CAFFEINE USE?YES HOW OFTEN AND HOW MUCH? 2/DAY SEXUAL HX HAD SEX IN THE LAST 12 MONTHS (VAGINAL, ORAL, OR ANAL)?NO HIV / HEP-C SCREENING HIV TEST OFFERED TO PATIENT:YES DATE OFFERED:09/16/2016 TEST ACCEPTED:NO HEP-C TEST OFFERED TO PATIENT:YES DATE OFFERED:09/16/2016 REASON:PATIENT DECLINED TEST ACCEPTED:NO REASON:PATIENT DECLINED ALEVISM [id number]AGE MARTINIQUAIS. EDUCATION LEVEL OF EDUCATION:FINISHED HIGH SCHOOL LEARNING BARRIERS / SPECIAL NEEDS CHANGE FROM LAST VISIT?NO BARRIERS TO LEARNING?NO HEARING IMPAIRED?YES RINGING IN EARS VISION IMPAIRED?YES COGNITIVELY IMPAIRED?NO :CORRECTIVE LENSES READINESS TO LEARN?YES LEARNING PREFERENCES?NO LEARNING CAPABILITIES PRESENT?YES EMOTIONAL BARRIERS?NO SPECIAL DEVICES?NO GENERAL ASSISTANT NEEDED?NO DOMESTIC VIOLENCE DO YOU FEEL SAFE IN YOUR ENVIRONMENT?YES OCCUPATION: UNEMPLOYED. DIET: SPECIAL DIET FOR GASTRIC BYPASS. EXERCISE: NO REGULAR EXERCISE DUE TO OBESITY/SPINAL CLAUDICATION. MARITAL STATUS: SINGLE. OTHERS AT HOME: SON -IN-LAW. - WAS THE PROVIDER NOTIFIED OF ANY PERTINENT INFO?YES HAS THE PATIENT BEEN EDUCATED REGARDING HIS/HER PLAN OF CARE?YES HAS THE PATIENT BEEN EDUCATED REGARDING PAIN, THE RISK FOR PAIN, THE IMPORTANCE OF EFFECTIVE PAIN MANAGEMENT, AND THE PAIN ASSESSMENT PROCESS?YES ADVANCE DIRECTIVE ADVANCE DIRECTIVE DISCUSSED WITH PATIENT:YES HCP - DAUGHTER BRENNEN VELÁZQUEZ REVIEW OF SYSTEMS CONSTITUTIONAL: ANY RECENT FEVER NO . CHILLS NO . WEIGHT CHANGE OF UNKNOWN REASONS NO . GASTROENTEROLOGY: NEW UNEXPLAINABLE CHANGES IN BOWEL CONTROL NO . CONSTIPATION NO . GENITOURINARY: ANY NEW CHANGE IN BLADDER CONTROL? NO . NEUROLOGY: NEW ONSET DIZZINESS OR NEUROLOGICAL CHANGES NOT MENTIONED NO . NEW NUMBNESS OR PAIN PATTERNS NOT MENTIONED AND PERTINENT TO TODAY'S VISIT NO . CARDIOLOGY: NEW CHEST PRESSURE NO . PATIENT DENIES NO . RESPIRATORY: UNEXPLAINABLE COUGH NO . NEW SHORTNESS OF BREATH NO . VITAL SIGNS WT 314.8 LBS, HT 72 IN, BMI 42.69 INDEX, BP 149//70, HR 70 /MIN, RR 18 /MIN, TEMP 97.6 F, OXYGEN SAT % 96%, SAFE IN ENV? (Y/N) Y, NA INITIALS SC 10:14, REVIEWED BY: LORENZA. EXAMINATION GENERAL EXAMINATION: GENERALAWAKE,ALERT ,PLEASANT . PSYCHAFFECT NORMAL . LUNGS:LUNG BRADLEY ARE CLEAR TO AUSCULTATION BILATERALLY. GOOD MOVEMENT OF AIR . HEART:S1, S2 IN A REGULAR RATE AND RHYTHM. NO SIGNIFICANT MURMURS, RUBS OR GALLOPS NOTED . 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 SMITH OR CARDIOLOGY. WE WILL SEND A REQUEST TO DR. SMITH'S OFFICE AT [facility]. CONTINUE HOME EXERCISE AND STRETCHING. CONTINUE USE OF ACETAMINOPHEN 500 MG 2 TABLETS TWICE A DAY IF NECESSARY FOR SEVERE PAIN EPISODES. FOLLOW-UP AT PAIN CLINIC IS SCHEDULED IN 2 MONTHS AFTER WRITTEN DOCUMENTATION OF MEDICAL CLEARANCE FOR CERVICAL EPIDURAL STEROID INJECTION BY DR. SMITH OR CARDIOLOGY IS OBTAINED AND REVIEWED BY ME. REFERRAL TO:ZAIRE PHILLIPS REASON:WE NEED MEDICAL CLEARANCE EITHER FROM DR SMITH OR CARDIOLOGY TO PROCEED WITH CERVICAL INJECTIONS, PT HAS LOOP RECORDER PROCEDURE CODES FA211 ESTABILISHED PATIENT [facility] FACILITY CHARGE DISPOSITION & COMMUNICATION FOLLOW UP 2 MONTHS (REASON: NEED MEDICAL CLEARANCE DOCUMENTED BY DR. SMITH OR CARDIOLOGY SPECIFICALLY FOR CERVICAL EPIDURAL STEROID INJECTION PRIOR TO 2 MONTH FOLLOW-UP) ELECTRONICALLY SIGNED BY ZACH MASSEY ON 05/18/2020 AT 01:16 PM EDT DISCLAIMER : THIS IS A VISIT SUMMARY EXTRACTED FROM THE [employer] CHART. IT IS NOT A COPY OF THE [employer] PROGRESS NOTE. ROBERT
== END ==
LOC: M PAIN 10:00
PROVIDERS: ATTEND Nurse Practitioner Family
DX: M47.22 Other spondylosis with radiculopathy, cervical region (principal); M51.16 Intervertebral disc disorders with radiculopathy, lumbar region; E11.40 Type 2 diabetes mellitus with diabetic neuropathy, unspecified; G47.30 Sleep apnea, unspecified; J44.9 Chronic obstructive pulmonary disease, unspecified; F17.210 Nicotine dependence, cigarettes, uncomplicated; Z86.59 Personal history of other mental and behavioral disorders; Z98.84 Bariatric surgery status; Z88.5 Allergy status to narcotic agent; Z91.09 Other allergy status, other than to drugs and biological substances; E66.01 Morbid (severe) obesity due to excess calories; Z68.41 Body mass index [BMI] 40.0-44.9, adult; Z79.899 Other long term (current) drug therapy

== ENCOUNTER → 2020-06-28 | Outpatient (CLI) | payer OTHER ==
--- NOTE | 2020-06-29 10:58 | REP ---
INDICATION: ABN FINDING OF LUNG COMPARISON: 12/07/2019, 01/04/2018 TECHNIQUE: Axial noncontrast images from the thoracic inlet to the upper abdomen with coronal and sagittal reformations. This CT examination was performed using the following dose reduction techniques: Automated exposure control, adjustment of mA and/or kv according to the patient's size, and use of iterative reconstruction technique. FINDINGS: Progressive bilateral pleuroparenchymal changes including areas of linear scarring and chronic rounded atelectasis are again noted and seem relatively stable. No new acute consolidation or obvious nodule/mass. No effusion. No pneumothorax. Tracheobronchial tree is patent. No significant adenopathy identified. Further evaluation of the mediastinum demonstrates stable atherosclerotic changes to the thoracic aorta and coronary arteries without aortic aneurysm or cardiomegaly. No pericardial effusion. Surrounding musculoskeletal structures are intact. IMPRESSION: Findings suggest progressive chronic pleuroparenchymal changes and areas of rounded subpleural atelectasis. No new acute mediastinal or pleuroparenchymal process. No adenopathy or effusion. <Electronically signed by Dmitri Mathis > 06/29/20 0145
== END ==
LOC: M RAD 17:21
PROVIDERS: ATTEND Physician Assistant
DX: R91.8 Other nonspecific abnormal finding of lung field (principal); I70.0 Atherosclerosis of aorta; I25.10 Atherosclerotic heart disease of native coronary artery without angina pectoris; J98.11 Atelectasis; J98.4 Other disorders of lung

== ENCOUNTER → 2020-07-16 | Outpatient (CLI) | payer OTHER ==
--- NOTE | 2020-07-17 05:11 | ECWPNPC ---
PATIENT NAME: GIACOMO MICHEL : 1965 GENDER: MALE VISIT DATE: 07/16/2020 DISCHARGE DATE: 07/16/20946 VISIT LOCKED DATE TIME: PHYSICIAN: ALEKSANDR NEWBERRY PHYSICIAN PAGER NO: ACTIVE RESOURCE: ALEKSANDR NEWBERRY REASON FOR APPOINTMENT 1. NEED MEDICAL CLEARANCE DOCUMENTED BY DR. SMITH OR CARDIOLOGY SPECIFICALLY FOR CERVICAL EPIDURAL STEROID INJECTION PRIOR TO 2 MONTH FOLLOW-UP HISTORY OF PRESENT ILLNESS GENERAL: HERE FOR FOLLOW-UP OF PERSISTENT NECK PAIN WITH LEFT ARM RADICULAR SYMPTOMS. WE HAVE RECEIVED MEDICAL CLEARANCE FROM DR. SMITH, [facility]. RECENTLY HAD EKG AND ECHO THAT WERE WITHIN NORMAL LIMITS. DENIES EPISODES OF CHEST PAINS OR SHORTNESS OF BREATH. HAS RESPONDED WELL TO CERVICAL EPIDURAL STEROID INJECTION IN THE PAST. REVIEWED MRI OF THE CERVICAL SPINE AND DISCUSSED TREATMENT PLAN. -. FALL RISK SCREENING: SCREENING : NO FALLS REPORTED IN THE LAST YEAR. PAIN SCREENING: PATIENT HAS A COMPLAINT OF ACUTE OR CHRONIC PAIN :YES LOCATION OF PAIN:NECK, BOTH SHOULDERS INTENSITY OF PAIN (SCALE OF 1 TO 10):7 WHAT DOES YOUR PAIN FEEL LIKE:ACHING, CONTINOUS, SHOOTING DURATION:CONTINOUS, CONSTANT, ALL DAY, AWAKENS FROM SLEEP PAIN IS INCREASED BY:ACTIVITIES, PROLONGED STANDING PAIN IS DECREASED BY:OTHERS THE ONLY THING THAT WORK IS THE SHOT NURSING NOTE: -. PAIN CENTER INTAKE QUESTIONS: DO YOU HAVE A HISTORY OF MRSA? :NO DO YOU TAKE A BLOOD THINNERS? :NO DO YOU HAVE ANY BLEEDING DISORDERS? :NO ANY NEW NUMBNESS OR WEAKNESS IN YOUR LEGS OR ARMS? :YES ANY PACEMAKER,DEFIBRILLATOR, OR DORSAL COLUMN STIMULATOR? :NO LOOP RECORDER DO YOU HAVE ANY RASHES OR OPEN SORES? :YES TO CHIN AND FOREHEAD ARE YOU ALLERGIC TO IV DYE? :NO ARE YOU DIABETIC? :YES ANY NEW PROBLEMS WITH YOUR MEDICATIONS? :NO HAVE YOU RECEIVED A VACCINE IN THE PAST 30 DAYS? :NO DO YOU PLAN TO RECEIVE A VACCINE IN THE NEXT 21 DAYS? :NO DO YOU NEED ANY PRESCRIPTION? :NO DO YOU TAKE ANY IMMUNOSUPPRESSIVE MEDICATIONS? :NO DO YOU HAVE ANY KIDNEY OR LIVER DISEASE? :NO IS THERE A CHANCE YOU COULD BE ? :NO ARE YOU BREAST FEEDING? :NO CURRENT MEDICATIONS TAKING SPIRIVA HANDIHALER 18 MCG CAPSULE 1 CAPSULE INHALATION ONCE A DAY TAKING VENTOLIN HFA 90 MCG/ACT AEROSOL SOLUTION 2 PUFFS INHALATION EVERY 4 HOURS NEEDED TAKING VITAMIN B-12 500 MCG TABLET 1 TABLET ORALLY TWICE DAILY (JERALD) TAKING CALCIUM + D 600-400 MG TABLET 1/2 TABLET ORALLY TWICE DAILY TAKING MULTIVITAMIN 1 TABLET 1 CHEWABLE TABLET ORALLY THREE TIMES DAILY TAKING MAGNESIUM OXIDE 400 MG TABLET 1 TAB(S) ORALLY DAILY TAKING CPAP MACHINE DIRECTED _; SETTINGS: 15 MMHG; WITH TUBING AND SUPPLIES/MASK QHS; ICD10: G47.33 TAKING CPAP MASK DIRECTED TOPICALLY; RESTMED MEDIUM MASK WITH TUBING AND SUPPLIES QHS; ICD10: G47.33 TAKING RIZATRIPTAN BENZOATE 10 MG TABLET 1 TABLET ORALLY ONCE A DAY TAKING FLONASE 50 MCG/ACT SUSPENSION 1 SPRAY IN EACH NOSTRIL NASALLY BID TAKING ADVAIR DISKUS 500-50 MCG/DOSE AEROSOL POWDER BREATH ACTIVATED 1 PUFF INHALATION TWICE A DAY TAKING POTASSIUM CHLORIDE 10 MEQ CAPSULE EXTENDED RELEASE 1 CAPSULE WITH FOOD ORALLY ONCE A DAY TAKING LASIX 20 MG TABLET TAKE ONE TABLET BY MOUTH EVERY DAY ORALLY DAILY TAKING TIZANIDINE HCL 4 MG TABLET 1 TABLET NEEDED ORALLY THREE TIMES A DAY TAKING LISINOPRIL 5 MG TABLET 1 TABLET ORALLY ONCE DAILY TAKING SIMVASTATIN 10 MG TABLET TAKE 1 TABLET BY MOUTH ONCE A DAY ORALLY ONCE A DAY TAKING OMEPRAZOLE 40 MG CAPSULE DELAYED RELEASE 1 CAPSULE ORALLY ONCE A DAY TAKING LYRICA 300 MG CAPSULE 1 CAPSULE ORALLY FOR PAIN TWICE A DAY MDD:2 TAKING TRAMADOL HCL 50 MG TABLET 1 TAB ORALLY EVERY 6 HRS NEEDED MDD:4 NOT-TAKING LIDOCAINE 5 % OINTMENT 1 APPLICATION TO AFFECTED AREA NEEDED EXTERNALLY TO THE KNEES AND NECK DAILY, NOTES: PRN MEDICATION LIST REVIEWED AND RECONCILED WITH THE PATIENT PAST MEDICAL HISTORY SLEEP APNEA USES CPAP COPD NO O2 HTN HLD ARTHRITIS - MULTIPLE LOCATIONS DEPRESSION AND ANXIETY DIABETES DIAGNOSED 10/04 - IN REMISSION SINCE GBSX PERIPHERAL NEUROPATHY S/P GASTRIC BYPASS INJURY, OTHER AND UNSPECIFIED, SHOULDER AND UPPER ARM OBESITY HISTORY OF DENNISE-EN-Y GASTRIC BYPASS CONGESTIVE HEART FAILURE PNEUMOCOCCAL VACCINE 2010 ALLERGIES IRAQI PEPPER TREES AND MELALEUCA TREES VICODIN: NAUSEA - SIDE EFFECTS SOCIAL HISTORY GENERAL: TOBACCO USE ARE YOU A:CURRENT SMOKER ARE YOU INTERESTED IN QUITTING?READY TO QUIT CUTTING BACK CURRENTLY. COUNSELED THE PATIENT ON TOBACCO USE, CESSATION [id number]/24/2021 HOW MANY CIGARETTES A DAY DO YOU SMOKE?6-10 HOW SOON AFTER YOU WAKE UP DO YOU SMOKE YOUR FIRST CIGARETTE?31-60 MIN HOW OFTEN DO YOU SMOKE CIGARETTES?SOME DAYS, BUT NOT EVERY DAY PATIENT COUNSELED ON THE DANGERS OF TOBACCO USE AND URGED TO QUIT:08/16/2019 LATEX QUESTIONNAIRE LATEX ALLERGY : HAVE YOU EVER DEVELOPED ANY TYPE OF REACTION AFTER HANDLING LATEX PRODUCTS SUCH RUBBER GLOVES, CONDOMS, DIAPHRAGMS, BALLOONS, SOCKS, OR UNDERWEAR?NO LATEX ALLERGY : HAVE YOU EVER DEVELOPED ANY TYPE OF REACTION DURING OR AFTER DENTAL APPOINTMENT, VAGINAL/RECTAL EXAMINATION, SURGICAL PROCEDURE, OR ANY OTHER EXPOSURE?NO LATEX RISK : HAVE YOU EVER HAD ANY DIFFICULTY BREATHING OR HIVES AFTER EATING OR HANDLING ANY FRUITS, OR VEGETABLES; SUCH KIWI, BANANAS, STONE FRUITS, OR CHESTNUTSNO LATEX RISK : DO YOU HAVE A PREVIOUS PERSONAL HISTORY OF MORE THAN NINE SURGERIES, SPINA BIFIDA, OR REPEATED CATHERIZATIONS? NO LATEX RISK : ARE YOU FREQUENTLY EXPOSED TO LATEX PRODUCTS IN YOUR OCCUPATION?NO DATE ASKED : 07/16/2020 ALCOHOL USE: OCCASION 1-2 TIMES YEARLY. BMI CARE GOAL FOLLOW-UP ABOVE NORMAL BMI FOLLOW-UPDIETARY MANAGEMENT EDUCATION, GUIDANCE, AND COUNSELING ALCOHOL SCREENING DID YOU HAVE A DRINK CONTAINING ALCOHOL IN THE PAST YEAR?NO POINTS0 INTERPRETATIONNEGATIVE RECREATIONAL DRUG USE DRUG USE?NO CAFFEINE CAFFEINE USE?YES HOW OFTEN AND HOW MUCH? 2/DAY SEXUAL HX HAD SEX IN THE LAST 12 MONTHS (VAGINAL, ORAL, OR ANAL)?NO HIV / HEP-C SCREENING HIV TEST OFFERED TO PATIENT:YES DATE OFFERED:09/16/2016 TEST ACCEPTED:NO HEP-C TEST OFFERED TO PATIENT:YES DATE OFFERED:09/16/2016 REASON:PATIENT DECLINED TEST ACCEPTED:NO REASON:PATIENT DECLINED CONGREGATION [id number] DRUZE LANGUAGE CHINESE. EDUCATION LEVEL OF EDUCATION:FINISHED HIGH SCHOOL LEARNING BARRIERS / SPECIAL NEEDS CHANGE FROM LAST VISIT?NO BARRIERS TO LEARNING?NO HEARING IMPAIRED?YES RINGING IN EARS VISION IMPAIRED?YES :CORRECTIVE LENSES COGNITIVELY IMPAIRED?NO READINESS TO LEARN?YES LEARNING PREFERENCES?NO LEARNING CAPABILITIES PRESENT?YES EMOTIONAL BARRIERS?NO SPECIAL DEVICES?NO REPAIRER WELDING EQUIPMENT NEEDED?NO DOMESTIC VIOLENCE DO YOU FEEL SAFE IN YOUR ENVIRONMENT?YES OCCUPATION: UNEMPLOYED. DIET: SPECIAL DIET FOR GASTRIC BYPASS. EXERCISE: NO REGULAR EXERCISE DUE TO OBESITY/SPINAL CLAUDICATION. MARITAL STATUS: SINGLE. OTHERS AT HOME: SON -IN-LAW. - WAS THE PROVIDER NOTIFIED OF ANY PERTINENT INFO?YES HAS THE PATIENT BEEN EDUCATED REGARDING HIS/HER PLAN OF CARE?YES HAS THE PATIENT BEEN EDUCATED REGARDING PAIN, THE RISK FOR PAIN, THE IMPORTANCE OF EFFECTIVE PAIN MANAGEMENT, AND THE PAIN ASSESSMENT PROCESS?YES ADVANCE DIRECTIVE ADVANCE DIRECTIVE DISCUSSED WITH PATIENT:YES HCP - DAUGHTER BRENNEN VELÁZQUEZ REVIEW OF SYSTEMS CONSTITUTIONAL: ANY RECENT FEVER NO . CHILLS NO . WEIGHT CHANGE OF UNKNOWN REASONS NO . GASTROENTEROLOGY: NEW UNEXPLAINABLE CHANGES IN BOWEL CONTROL NO . CONSTIPATION NO . GENITOURINARY: ANY NEW CHANGE IN BLADDER CONTROL? NO . NEUROLOGY: NEW ONSET DIZZINESS OR NEUROLOGICAL CHANGES NOT MENTIONED NO . NEW NUMBNESS OR PAIN PATTERNS NOT MENTIONED AND PERTINENT TO TODAY'S VISIT NO . CARDIOLOGY: NEW CHEST PRESSURE NO . PATIENT DENIES NO . RESPIRATORY: UNEXPLAINABLE COUGH NO . NEW SHORTNESS OF BREATH NO . VITAL SIGNS WT 317.4 LBS, HT 72 IN, BMI 43.04 INDEX, BP 137/62 MM HG, HR 74 /MIN, RR 18 /MIN, TEMP 97.4 F, OXYGEN SAT % 95%, SAFE IN ENV? (Y/N) YES, NA INITIALS AW 0916T.CHHAYA PANIAGUA. EXAMINATION GENERAL EXAMINATION: LUNGS:LUNG SOUNDS ARE CLEAR . HEART:HEART RATE REGULAR . MUSCULOSKELETAL:*, MUSCLE STRENGTH TESTING 5/5 BILATERAL UPPER EXTREMITIES. . CERVICAL:+ FOR PAIN WITH PALPATION OF CERVICAL SPINE. + FOR PAIN WITH PALPATION OF CERVICAL PARASPINALS. . DIAGNOSTIC TESTS REVIEWEDCERVICAL MRI. ASSESSMENTS CERVICAL SPONDYLOSIS WITH RADICULOPATHY - M47.22 (PRIMARY) INTERVERTEBRAL DISC DISORDERS WITH RADICULOPATHY, LUMBAR REGION - M51.16 TREATMENT CERVICAL SPONDYLOSIS WITH RADICULOPATHY SALINE LOCK (ORDERED FOR 07/23/2020)ALEKSANDR NEWBERRY FNP 07/16/2020 9:40:45 AM > PATIENT REQUESTS NO PRE-SEDATE NOTES: CERVICAL EPIDURAL STERIOD INJECTION C7-T1 REVIEWED PRE PROCEDURE INFORMATION, PATIENT VERBALIZED UNDERSTANDING YADY VEDRE PROCEDURE CODES FA211 ESTABILISHED PATIENT [facility] FACILITY CHARGE DISPOSITION & COMMUNICATION FOLLOW UP POST (REASON: CERVICAL EPIDURAL STERIOD INJECTION) ELECTRONICALLY SIGNED BY ZACH MASSEY ON 07/16/2020 AT 03:37 PM EDT DISCLAIMER : THIS IS A VISIT SUMMARY EXTRACTED FROM THE [email or web address] CHART. IT IS NOT A COPY OF THE [email or web address] PROGRESS NOTE. MTDD
== END ==
LOC: M PAIN 09:15
PROVIDERS: ATTEND Nurse Practitioner Family
DX: M47.22 Other spondylosis with radiculopathy, cervical region (principal); M51.16 Intervertebral disc disorders with radiculopathy, lumbar region; G47.30 Sleep apnea, unspecified; J44.9 Chronic obstructive pulmonary disease, unspecified; F17.210 Nicotine dependence, cigarettes, uncomplicated; Z86.59 Personal history of other mental and behavioral disorders; Z98.84 Bariatric surgery status; Z88.5 Allergy status to narcotic agent; Z91.09 Other allergy status, other than to drugs and biological substances; E66.01 Morbid (severe) obesity due to excess calories; Z68.41 Body mass index [BMI] 40.0-44.9, adult; Z79.899 Other long term (current) drug therapy

== ENCOUNTER → 2020-08-15 | Outpatient (CLI) | payer OTHER ==
[~2020-08-15] MED LIST changes: +OMEP40CA4 PO; -OMEP40CA97 PO
== END ==
LOC: M LABSMTC 10:09
PROVIDERS: ATTEND Anesthesiology
DX: Z01.812 Encounter for preprocedural laboratory examination (principal); Z20.822 Contact with and (suspected) exposure to COVID-19

== ENCOUNTER → 2020-08-20 | Outpatient (CLI) | payer OTHER ==
[~2020-08-20] MED LIST changes: +ISOVUE-M 300 61% 15ML VIAL As Ordered ONE; +LIDOCAINE 1% SDV 30ML VIAL As Ordered ONE; +diazePAM 5MG TABLET As Ordered ONE; +methylPREDNISolone SUSP 40MG/ML 1ML VIAL (DEPO MEDROL) As Ordered ONE
--- NOTE | 2020-08-20 11:55 | REP ---
INDICATION: PAIN. COMPARISON: None. TECHNIQUE: Intraoperative fluoroscopic imaging using portable C-arm technique. FINDINGS: Multiple images demonstrate catheter and contrast along the right lower cervical spine. Total fluoroscopic time 13 seconds. IMPRESSION: Status post cervical spine injection. <Electronically signed by Dmitri Mathis > 08/20/20 [id number]
--- NOTE | 2020-08-22 04:00 | ECWPNPC ---
PATIENT NAME: GIACOMO MICHEL : 1965 GENDER: MALE VISIT DATE: 08/20/2020 DISCHARGE DATE: 08/20/20 1209 VISIT LOCKED DATE TIME: PHYSICIAN: USHA LEAHY MD PHYSICIAN PAGER NO: ACTIVE RESOURCE: USHA LEAHY MD REASON FOR APPOINTMENT 1. CERVICAL EPIDURAL STERIOD INJECTION HISTORY OF PRESENT ILLNESS GENERAL: -. FALL RISK SCREENING: SCREENING : ONE FALL REPORTED IN THE LAST YEAR WITHOUT INJURY. PAIN SCREENING: PATIENT HAS A COMPLAINT OF ACUTE OR CHRONIC PAIN :YES LOCATION OF PAIN:NECK, LEFT SHOULDER INTENSITY OF PAIN (SCALE OF 1 TO 10):7 WHAT DOES YOUR PAIN FEEL LIKE:ACHING, STABBING DURATION:CONTINOUS PAIN IS INCREASED BY:ACTIVITIES PAIN IS DECREASED BY: INJECTIONS NURSING NOTE: -. PAIN CENTER INTAKE QUESTIONS: DO YOU HAVE A HISTORY OF MRSA? :NO DO YOU TAKE A BLOOD THINNERS? :NO DO YOU HAVE ANY BLEEDING DISORDERS? :NO ANY NEW NUMBNESS OR WEAKNESS IN YOUR LEGS OR ARMS? :NO ANY PACEMAKER,DEFIBRILLATOR, OR DORSAL COLUMN STIMULATOR? :NO DO YOU HAVE ANY RASHES OR OPEN SORES? :NO ARE YOU ALLERGIC TO IV DYE? :NO ARE YOU DIABETIC? :NO ANY NEW PROBLEMS WITH YOUR MEDICATIONS? :NO HAVE YOU RECEIVED A VACCINE IN THE PAST 30 DAYS? :NO DO YOU PLAN TO RECEIVE A VACCINE IN THE NEXT 21 DAYS? :NO DO YOU TAKE ANY IMMUNOSUPPRESSIVE MEDICATIONS? :NO ANY HISTORY OF SEIZURES? :NO ANY HISTORY OF CARDIAC ISSUES OR EVENTS? :NO DO YOU HAVE ANY KIDNEY OR LIVER DISEASE? :NO DO YOU HAVE SLEEP APNEA? :YES DO YOU WEAR A CPAP?YES ANY RECENT HEAD INJURY? :NO DO YOU HAVE ANY NEW INFECTIONS? :NO IS THERE A CHANCE YOU COULD BE ? :NO ARE YOU BREAST FEEDING? :NO WHEN DID YOU LAST EAT? : -08/19 1829 WHEN DID YOU LAST DRINK? : -08/20 629 WHAT DID YOU LAST DRINK? : -WATER NAME OF PERSON DRIVING YOU HOME? : BROTHER DO YOU HAVE ANY OTHER QUESTIONS OR CONCERNS? : - CURRENT MEDICATIONS TAKING SPIRIVA HANDIHALER 18 MCG CAPSULE 1 CAPSULE INHALATION ONCE A DAY TAKING VENTOLIN HFA 90 MCG/ACT AEROSOL SOLUTION 2 PUFFS INHALATION EVERY 4 HOURS NEEDED TAKING VITAMIN B-12 500 MCG TABLET 1 TABLET ORALLY TWICE DAILY (JERALD) TAKING CALCIUM + D 600-400 MG TABLET 1/2 TABLET ORALLY TWICE DAILY TAKING MULTIVITAMIN 1 TABLET 1 CHEWABLE TABLET ORALLY THREE TIMES DAILY TAKING MAGNESIUM OXIDE 400 MG TABLET 1 TAB(S) ORALLY DAILY TAKING CPAP MACHINE DIRECTED _; SETTINGS: 15 MMHG; WITH TUBING AND SUPPLIES/MASK QHS; ICD10: G47.33 TAKING CPAP MASK DIRECTED TOPICALLY; RESTMED MEDIUM MASK WITH TUBING AND SUPPLIES QHS; ICD10: G47.33 TAKING RIZATRIPTAN BENZOATE 10 MG TABLET 1 TABLET ORALLY ONCE A DAY TAKING FLONASE 50 MCG/ACT SUSPENSION 1 SPRAY IN EACH NOSTRIL NASALLY BID TAKING ADVAIR DISKUS 500-50 MCG/DOSE AEROSOL POWDER BREATH ACTIVATED 1 PUFF INHALATION TWICE A DAY TAKING POTASSIUM CHLORIDE 10 MEQ CAPSULE EXTENDED RELEASE 1 CAPSULE WITH FOOD ORALLY ONCE A DAY TAKING LASIX 20 MG TABLET TAKE ONE TABLET BY MOUTH EVERY DAY ORALLY DAILY TAKING LISINOPRIL 5 MG TABLET 1 TABLET ORALLY ONCE DAILY, NOTES: 08/20 629 TAKING SIMVASTATIN 10 MG TABLET TAKE 1 TABLET BY MOUTH ONCE A DAY ORALLY ONCE A DAY TAKING OMEPRAZOLE 40 MG CAPSULE DELAYED RELEASE 1 CAPSULE ORALLY ONCE A DAY TAKING LYRICA 300 MG CAPSULE 1 CAPSULE ORALLY FOR PAIN TWICE A DAY MDD:2, NOTES: 08/20 629 TAKING TIZANIDINE HCL 4 MG TABLET 1 TABLET NEEDED ORALLY THREE TIMES A DAY, NOTES: NONE IN 2 WEEKS TAKING TRAMADOL HCL 50 MG TABLET 1 TAB ORALLY EVERY 6 HRS NEEDED MDD:4, NOTES: 08/20 629 NOT-TAKING LIDOCAINE 5 % OINTMENT 1 APPLICATION TO AFFECTED AREA NEEDED EXTERNALLY TO THE KNEES AND NECK DAILY, NOTES: PRN MEDICATION LIST REVIEWED AND RECONCILED WITH THE PATIENT PAST MEDICAL HISTORY SLEEP APNEA USES CPAP COPD NO O2 HTN HLD ARTHRITIS - MULTIPLE LOCATIONS DEPRESSION AND ANXIETY DIABETES DIAGNOSED 10/04 - IN REMISSION SINCE GBSX PERIPHERAL NEUROPATHY S/P GASTRIC BYPASS INJURY, OTHER AND UNSPECIFIED, SHOULDER AND UPPER ARM OBESITY HISTORY OF DENNISE-EN-Y GASTRIC BYPASS CONGESTIVE HEART FAILURE PNEUMOCOCCAL VACCINE 2010 ALLERGIES PARAGUAYAN PEPPER TREES AND MELALEUCA TREES VICODIN: NAUSEA - SIDE EFFECTS SURGICAL HISTORY TUMOR REMOVED IN RIGHT HIP AT 5Y/O SEBACEOUS CYST REMOVAL/ 09/[address] MARQUES 06/10/2013 COLONOSCOPY 2016 LEFT ROTATOR CUFF 2018 RIGHT SHOULDER SURGERY 2017 FAMILY HISTORY FATHER: , CAD S/P NV AT 63, DIABETES, HTN, DIAGNOSED WITH UNSPECIFIED HEART DISEASE, DIABETES MOTHER: ALIVE, COPD, CAD S/P STENTS, CRF, THYROID PROBLEMS SIBLINGS: ALIVE, STROKE-OLDER BROTHER. OLDER SISTER-DM, OLDER SISTER-DM, OLDER BROTHER-CYSTIC ULCERS, UNSPECIFIED HEART DISEASE, OTHER MALIGNANT NEOPLASM OF UNSPECIFIED SITE DAUGHTER(S): ALIVE 2 BROTHER(S) , 2 SISTER(S) - HEALTHY. 2DAUGHTER(S) - HEALTHY. AUNTS WITH CANCER. SOCIAL HISTORY GENERAL: TOBACCO USE ARE YOU A:CURRENT SMOKER HOW OFTEN DO YOU SMOKE CIGARETTES?SOME DAYS, BUT NOT EVERY DAY HOW SOON AFTER YOU WAKE UP DO YOU SMOKE YOUR FIRST CIGARETTE?31-60 MIN HOW MANY CIGARETTES A DAY DO YOU SMOKE?6-10 ARE YOU INTERESTED IN QUITTING?READY TO QUIT CUTTING BACK CURRENTLY. PATIENT COUNSELED ON THE DANGERS OF TOBACCO USE AND URGED TO QUIT:08/16/2019 COUNSELED THE PATIENT ON TOBACCO USE, CESSATION [id number]/24/2021 LATEX QUESTIONNAIRE LATEX ALLERGY : HAVE YOU EVER DEVELOPED ANY TYPE OF REACTION AFTER HANDLING LATEX PRODUCTS SUCH RUBBER GLOVES, CONDOMS, DIAPHRAGMS, BALLOONS, SOCKS, OR UNDERWEAR?NO LATEX ALLERGY : HAVE YOU EVER DEVELOPED ANY TYPE OF REACTION DURING OR AFTER DENTAL APPOINTMENT, VAGINAL/RECTAL EXAMINATION, SURGICAL PROCEDURE, OR ANY OTHER EXPOSURE?NO DATE ASKED : 07/16/2020 LATEX RISK : HAVE YOU EVER HAD ANY DIFFICULTY BREATHING OR HIVES AFTER EATING OR HANDLING ANY FRUITS, OR VEGETABLES; SUCH KIWI, BANANAS, STONE FRUITS, OR CHESTNUTSNO LATEX RISK : DO YOU HAVE A PREVIOUS PERSONAL HISTORY OF MORE THAN NINE SURGERIES, SPINA BIFIDA, OR REPEATED CATHERIZATIONS? NO LATEX RISK : ARE YOU FREQUENTLY EXPOSED TO LATEX PRODUCTS IN YOUR OCCUPATION?NO ALCOHOL USE: OCCASION 1-2 TIMES YEARLY. BMI CARE GOAL FOLLOW-UP ABOVE NORMAL BMI FOLLOW-UPDIETARY MANAGEMENT EDUCATION, GUIDANCE, AND COUNSELING ALCOHOL SCREENING DID YOU HAVE A DRINK CONTAINING ALCOHOL IN THE PAST YEAR?NO POINTS0 INTERPRETATIONNEGATIVE RECREATIONAL DRUG USE DRUG USE?NO CAFFEINE CAFFEINE USE?YES HOW OFTEN AND HOW MUCH? 2/DAY SEXUAL HX HAD SEX IN THE LAST 12 MONTHS (VAGINAL, ORAL, OR ANAL)?NO HIV / HEP-C SCREENING HIV TEST OFFERED TO PATIENT:YES DATE OFFERED:09/16/2016 TEST ACCEPTED:NO HEP-C TEST OFFERED TO PATIENT:YES DATE OFFERED:09/16/2016 REASON:PATIENT DECLINED TEST ACCEPTED:NO REASON:PATIENT DECLINED PRESYBETERIAN [id number] TENRIISM LANGUAGE SWEDISH. EDUCATION LEVEL OF EDUCATION:FINISHED HIGH SCHOOL LEARNING BARRIERS / SPECIAL NEEDS CHANGE FROM LAST VISIT?NO BARRIERS TO LEARNING?NO HEARING IMPAIRED?YES RINGING IN EARS VISION IMPAIRED?YES COGNITIVELY IMPAIRED?NO :CORRECTIVE LENSES READINESS TO LEARN?YES LEARNING PREFERENCES?NO LEARNING CAPABILITIES PRESENT?YES EMOTIONAL BARRIERS?NO SPECIAL DEVICES?NO ORNAMENTAL MACHINE OPERATOR NEEDED?NO DOMESTIC VIOLENCE DO YOU FEEL SAFE IN YOUR ENVIRONMENT?YES OCCUPATION: UNEMPLOYED. DIET: SPECIAL DIET FOR GASTRIC BYPASS. EXERCISE: NO REGULAR EXERCISE DUE TO OBESITY/SPINAL CLAUDICATION. MARITAL STATUS: SINGLE. OTHERS AT HOME: SON -IN-LAW. - WAS THE PROVIDER NOTIFIED OF ANY PERTINENT INFO?YES HAS THE PATIENT BEEN EDUCATED REGARDING HIS/HER PLAN OF CARE?YES HAS THE PATIENT BEEN EDUCATED REGARDING PAIN, THE RISK FOR PAIN, THE IMPORTANCE OF EFFECTIVE PAIN MANAGEMENT, AND THE PAIN ASSESSMENT PROCESS?YES ADVANCE DIRECTIVE ADVANCE DIRECTIVE DISCUSSED WITH PATIENT:YES HCP - DAUGHTER BRENNEN VELÁZQUEZ HOSPITALIZATION/MAJOR DIAGNOSTIC PROCEDURE ABOVE SURGERIES FALL 12/2015 VITAL SIGNS WT 316.8 LBS, HT 72 IN, BMI 42.96 INDEX, BP 145/72 MM HG, HR 88 /MIN, RR 18 /MIN, TEMP 97.8 F, OXYGEN SAT % 95%, NA INITIALS AW 1021. EXAMINATION GENERAL: THE PATIENT IS ALERT, ORIENTED TIMES THREE AND COOPERATIVE. LUNGS ARE CLEAR TO AUSCULTATION. HEART SHOWS REGULAR RHYTHM, NO MURMURS AND NO GALLOPS. ASSESSMENTS CERVICAL SPONDYLOSIS WITH RADICULOPATHY - M47.22 (PRIMARY) TREATMENT CERVICAL SPONDYLOSIS WITH RADICULOPATHY [facility] FLUORO GUIDE SPINE INJECTION (PAIN)[id number] MEDICATION: VALIUM TAB 5MG ORALLY (DIAZEPAM)BETI KOWALSKI 08/20/2020 10:42:48 AM > VERIFIED MALCOMMEDINA 08/20/2020 10:45:00 AM > ADMINISTERED COMPLETION OF PROCEDURAL VISIT WHEN MEETS CRITERIA SALINE ALEKSANDR LYNNE FNP 07/16/2020 9:40:45 AM > PATIENT REQUESTS NO PRE-SEDATE PERLITA DELGADO 08/20/2020 10:45:27 AM > IV ATTEMPT LEFT HAND BETI YAN RN 08/20/2020 10:54:20 AM > #22 SL STARTED X 1 ATTEMPT BY THIS HOSTEL PARENT IN RIGHT HAND, SITE ASYMPTOMATIC, FLUSHES WELL. PATIENT TOLERATED WELL. OTHERS NOTES: PAT DONE 08/14/20. EM. PROCEDURES PAIN NURSING RECORD PROCEDURE IN ROOM 1110, PHYSICIAN IN ROOM 1132, START 1135, FINISH 1142, PHYSICIAN OUT OF ROOM 1143, OUT OF ROOM 1150, ECG NORMAL SINUS, PATIENT SHIELDED YES, SAFETY STRAP YES, PREP BETADINE Tricia العراقي RN, DRESSING TEGADERM DR. LEAHY LOC: 1. ALERT, ORIENTED RESP: 1. REGULAR, NO DYSPNEA COLOR: 1. PINK SKIN: 1. WARM, DRY POSITION: 1. PRONE VITALS: 1100 P64 R18 02 94 BP 119/58 AW MEDINA العراقي 08/20/2020 11:15:33 AM > 134/76 HR 65 16 95% R/A MEDINA العراقي 08/20/2020 11:3014 AM > 136/78 HR 62 16 96% MEDINA العراقي 08/20/2020 12:10:40 PM > 139/65 HR 64 16 95% R/A D/C V/S COMPLETION OF PROCEDURE APPOINTMENT: POST PAIN 4, DRESSING SITE DRY AND INTACT, IV DISCONTINUED, SITE CLEAR, CATHETER INTACT, GAIT STEADY, TEACHING COMPLETED, PATIENT ACKNOWLEDGES UNDERSTANDING YES, PROCEDURE APPOINTMENT COMPLETED AT 1208 PN CERVICAL EPIDURAL PRE PROCEDURE DIAGNOSIS CERVICAL DISC DISORDER WITH RADICULOPATHY POST PROCEDURE DIAGNOSIS CERVICAL DISC DISORDER WITH RADICULOPATHY PROCEDURE CERVICAL EPIDURAL STEROID INJECTION UNDER FLUOROSCOPIC GUIDANCE SURGEON DR. USHA LEAHY DIE STAMPER NONE ANESTHESIA LOCAL PRE PROCEDURE NOTE THE PATIENT HAS A HISTORY OF CHRONIC CERVICAL PAIN. I EVALUATED THE PATIENT AND REVIEWED THE CHART. I WENT OVER THE RISKS, ALTERNATIVES, AND BENEFITS ASSOCIATED WITH THIS PROCEDURE. THE PATIENT WOULD LIKE TO PROCEED AND GIVE CONSENT TO PERFORMED THE PROCEDURE. THE PATIENT DENIES UNEXPLAINABLE WEIGHT LOSS, FEVER, CHILLS, OR NEW CHANGES IN URINARY OR BOWEL CONTROL. THE PATIENT IS COVID-19 NEGATIVE DESCRIPTION OF PROCEDURE THE PATIENT WAS BROUGHT TO THE PROCEDURE ROOM AND PLACED IN THE PRONE POSITION. THE CERVICOTHORACIC AREA WAS CLEANED WITH BETADINE SOLUTION AND DRAPED ASEPTICALLY. THE PROCEDURE WAS DONE UNDER STERILE CONDITIONS. A TIMEOUT WAS PERFORMED WHERE THE CONSENTED SITE WAS VERIFIED WITH EVERYONE IN THE ROOM. UNDER FLUOROSCOPIC GUIDANCE, THE TARGET WAS SELECTED AT THE INTERLAMINAR LEVEL OF C7-T1. I CONFIRMED AGAIN THE SITE OF TARGET. LIDOCAINE WAS USED TO NUMB THE SKIN AND THE SUBCUTANEOUS TISSUE BELOW IT. EPIDURAL TUOHY NEEDLE, 17-GAUGE 3.5 INCH, WAS ADVANCED UNDER FLUOROSCOPIC GUIDANCE AND FOLLOWING PATIENT FEEDBACK UNTIL THE EPIDURAL SPACE WAS REACHED 8 CM DEEP INTO THE SKIN BY THE LOSS OF RESISTANCE TECHNIQUE. ISOVUE-M DYE 30%, 0.25 ML, WAS INJECTED SHOWING ADEQUATE SPREAD OF THE DYE. THEN, A SOLUTION OF 3 ML OF NORMAL SALINE WITH DEPO-MEDROL 40MG WAS INJECTED SLOWLY FOLLOWING PATIENT FEEDBACK. THE MEDICATIONS WERE VERIFIED WITH THE NURSE. THERE WAS NO EVIDENCE OF BLOOD, PARESTHESIA OR CEREBROSPINAL FLUID DURING THE PROCEDURE. ESTIMATED BLOOD LOSS WAS LESS THAN 5 ML. THE PATIENT WAS SENT TO THE RECOVERY ROOM. THE PATIENT WAS MOVING THE EXTREMITIES AND DOING WELL. THERE WERE NO COMPLICATIONS DURING THE PROCEDURE. FLUOROSCOPY TIME WAS 13 SECONDS POST PROCEDURE NOTE THE PATIENT WILL BE SEEN IN A FOLLOW UP IN THE NEXT FEW WEEKS. I AM LOOKING FOR LONG LASTING RELIEF FOR THE PATIENT WITH THIS INTERVENTION. INSTRUCTIONS WERE GIVEN, QUESTIONS WERE ANSWERED, AND THE PATIENT EXPRESSED UNDERSTANDING AND AGREES WITH THE PLAN. I, ZULEIKA LUGO, DOCUMENTED THE ABOVE INFORMATION ACTING A SCRIBE FOR DR. LEAHY. I HAVE REVIEWED THE ABOVE DOCUMENT, WRITTEN BY ZULEIKA LUGO, CARD CUTTER, AND I VERIFY THAT IT IS ACCURATE PROCEDURE CODES 29360 CERVICAL/THORACIC W/ IMAGING DISPOSITION & COMMUNICATION FOLLOW UP FOLLOW UP WITH BUYER BROKER (REASON: POST CERVICAL EPDIRUAL STEROID INJECTION) ELECTRONICALLY SIGNED BY USHA LEAHY MD, MD ON 08/21/2020 AT 10:53 AM EDT DISCLAIMER : THIS IS A VISIT SUMMARY EXTRACTED FROM THE [employer] CHART. IT IS NOT A COPY OF THE [employer] PROGRESS NOTE. ROBERT
== END ==
LOC: M PAIN 10:20
PROVIDERS: ATTEND Anesthesiology
DX: M47.22 Other spondylosis with radiculopathy, cervical region (principal); G47.30 Sleep apnea, unspecified; J44.9 Chronic obstructive pulmonary disease, unspecified; I11.0 Hypertensive heart disease with heart failure; E78.5 Hyperlipidemia, unspecified; F32.9 Major depressive disorder, single episode, unspecified; F41.9 Anxiety disorder, unspecified; Z98.84 Bariatric surgery status; E66.9 Obesity, unspecified; I50.9 Heart failure, unspecified; Z79.891 Long term (current) use of opiate analgesic; Z79.899 Other long term (current) drug therapy; F17.210 Nicotine dependence, cigarettes, uncomplicated; Z88.5 Allergy status to narcotic agent; Z91.048 Other nonmedicinal substance allergy status; Z68.41 Body mass index [BMI] 40.0-44.9, adult
CPT/HCPCS: 62321; J1030; Q9967

== ENCOUNTER → 2020-09-03 | Outpatient (CLI) | payer OTHER ==
[~2020-09-03] MED LIST changes: +ADV250INH INH; +B-12100011 PO; -ISOVUE-M 300 61% 15ML VIAL As Ordered ONE; -LIDOCAINE 1% SDV 30ML VIAL As Ordered ONE; +MAGN400T2 PO; -diazePAM 5MG TABLET As Ordered ONE; -methylPREDNISolone SUSP 40MG/ML 1ML VIAL (DEPO MEDROL) As Ordered ONE
== END ==
LOC: M PAIN 10:45
PROVIDERS: ATTEND Nurse Practitioner Family
DX: M47.22 Other spondylosis with radiculopathy, cervical region (principal); G89.29 Other chronic pain; E11.9 Type 2 diabetes mellitus without complications; G47.30 Sleep apnea, unspecified; J44.9 Chronic obstructive pulmonary disease, unspecified; F17.210 Nicotine dependence, cigarettes, uncomplicated; Z86.59 Personal history of other mental and behavioral disorders; Z98.84 Bariatric surgery status; Z88.5 Allergy status to narcotic agent; Z91.09 Other allergy status, other than to drugs and biological substances; E66.01 Morbid (severe) obesity due to excess calories; Z68.41 Body mass index [BMI] 40.0-44.9, adult; Z79.899 Other long term (current) drug therapy

== ENCOUNTER → 2020-09-14 | Outpatient (CLI) | payer OTHER ==
[~2020-09-14] MED LIST changes: -ADV250INH INH; -B-12100011 PO; -MAGN400T2 PO
[2020-09-14 10:52] LABS: HEMOGLOBIN A1c 5.2 %
[2020-09-14 11:04] LABS: ALBUMIN 3.1 GM/DL (3.2-5.2); ALT/SGPT 26 U/L (12-78); BILIRUBIN,TOTAL 0.5 MG/DL (0.2-1.0); BLOOD UREA NITROGEN 9 MG/DL (7-18); CALCIUM LEVEL 8.2 MG/DL (8.5-10.1); CARBON DIOXIDE LEVEL 29 MEQ/L (21-32); CHLORIDE LEVEL 106 MEQ/L (98-107); CHOLESTEROL LEVEL 103 MG/DL (<200); CHOLESTEROL RISK RATIO 2.861 (<5); CREATININE FOR GFR 0.75 MG/DL (0.70-1.30); GLOMERULAR FILTRATION RATE > 60.0 (>56); GLUCOSE, FASTING 97 MG/DL (70-100); HDL CHOLESTEROL 36 MG/DL (>40); LDL CHOLESTEROL 54 MG/DL (<100); NON-HDL-C 67 MG/DL; POTASSIUM SERUM 3.9 MEQ/L (3.5-5.1); SODIUM LEVEL 141 MEQ/L (136-145); TOTAL PROTEIN 6.3 GM/DL (6.4-8.2); TRIGLYCERIDES LEVEL 64 MG/DL (<150)
[2020-09-14 11:06] LABS: VITAMIN B12 LEVEL > 2000 PG/ML (247-911)
== END ==
LOC: M PLALAB 08:33
PROVIDERS: ATTEND Nurse Practitioner Family
DX: E11.9 Type 2 diabetes mellitus without complications (principal); Z90.89 Acquired absence of other organs; E78.5 Hyperlipidemia, unspecified

== ENCOUNTER → 2020-10-06 | Outpatient (CLI) | payer OTHER ==
[~2020-10-06] MED LIST changes: +ADV250INH INH; +B-12100011 PO; +MAGN400T2 PO
== END ==
LOC: M LABSMTC 11:00
PROVIDERS: ATTEND Anesthesiology
DX: Z01.812 Encounter for preprocedural laboratory examination (principal); Z20.822 Contact with and (suspected) exposure to COVID-19

== ENCOUNTER 2020-10-11 08:16 | Day surgery (SDC) | payer OTHER ==
[~2020-10-11] VITALS: Ht 182.9 cm; Wt 139.0 kg
[~2020-10-11 08:16] MED LIST changes: +LIDOCAINE 2% 100MG/5ML SDV (FOR ANES.) As Ordered ONE; +NS 1,000 ML IV ONE; +propofoL 200 MG/20 ML VIAL As Ordered ONE
[2020-10-11] MEDS ORDERED: propofoL 200 MG/20 ML VIAL As Ordered ONE ×2 (10:21→10:51)
--- NOTE | 2020-10-11 11:14 | ROOR ---
Patient Name: Valentino Odell Procedure Date: 10/11/2020 10:32 AM Date of : 1965 Age: 54 Room: [facility] Gender: Male Note Status: Finalized Procedure: Colonoscopy Indications: High risk colon cancer surveillance: Personal history of colonic polyps Providers: Karsten Rodriguez MD Referring MD: CONCHA MAY MD Requesting Provider: Medicines: Monitored Anesthesia Care Complications: No immediate complications. Procedure: Pre-Anesthesia Assessment: - The heart rate, respiratory rate, oxygen saturations, blood pressure, adequacy of pulmonary ventilation, and response to care were monitored throughout the procedure. The Colonoscope was introduced through the anus and advanced to the cecum, identified by appendiceal orifice and ileocecal valve. The colonoscopy was performed with difficulty due to inadequate bowel prep. The patient tolerated the procedure well. The quality of the bowel preparation was poor. Findings: The perianal and digital rectal examinations were normal. Ten semi-sessile polyps were found in the sigmoid colon, descending colon and splenic flexure. The polyps were 4 to 5 mm in size. These polyps were removed with a cold snare. Resection and retrieval were complete. Impression: - Preparation of the colon was poor. - Ten 4 to 5 mm polyps in the sigmoid colon, in the descending colon and at the splenic flexure, removed with a cold snare. Resected and retrieved. Recommendation: - Repeat colonoscopy at the next available appointment because the bowel preparation was poor. - (Rec alternate colon preparation for next colonoscopy) Procedure Code(s): --- Professional --- 88963, Colonoscopy, flexible; with removal of tumor(s), polyp(s), or other lesion(s) by snare technique Diagnosis Code(s): --- Professional --- K63.5, Polyp of colon Z86.010, Personal history of colonic polyps CPT copyright 2019 [employer]. All rights reserved. The codes documented in this report are preliminary and upon spout liner review may be revised to meet current compliance requirements. Karsten Rodriguez MD Karsten Rodriguez MD 10/11/2020 11:13:44 AM Electronically signed by Karsten Rodriguez MD Number of Addenda: 0 Note Initiated On: 10/11/2020 10:32 AM Estimated Blood Loss: Estimated blood loss: none.
[2020-10-11 11:35] VITALS: BP 124/67
== END 2020-10-11 11:37 | disposition home or self-care (01) ==
LOC: M OPP 08:16
PROVIDERS: ATTEND Internal Medicine Gastroenterology
DX: Z12.11 Encounter for screening for malignant neoplasm of colon (principal); Z86.010 Personal history of colon polyps; Z80.0 Family history of malignant neoplasm of digestive organs; K63.5 Polyp of colon; I50.9 Heart failure, unspecified; E11.9 Type 2 diabetes mellitus without complications; Z79.899 Other long term (current) drug therapy; Z91.040 Latex allergy status; Z91.048 Other nonmedicinal substance allergy status; F17.210 Nicotine dependence, cigarettes, uncomplicated

== ENCOUNTER → 2020-11-05 | Outpatient (CLI) | payer OTHER ==
[~2020-11-05] MED LIST changes: -LIDOCAINE 2% 100MG/5ML SDV (FOR ANES.) As Ordered ONE; -NS 1,000 ML IV ONE; -propofoL 200 MG/20 ML VIAL As Ordered ONE
--- NOTE | 2020-11-05 11:30 | REP ---
INDICATION: PAIN. COMPARISON: 03/16/2020 TECHNIQUE: AP frog-lateral views right hip FINDINGS: There has been no significant change from the prior exam. The femoral head is unchanged in appearance. The hip joint space is stable. There is no acute fracture, dislocation, or subluxation. There is no evidence of buttressing. IMPRESSION: No significant change from 03/16/2020. If the patient is experiencing chronic pain consider follow-up with MRI. <Electronically signed by Eriberto Barney > 11/05/20 [id number]
== END ==
LOC: M PLAIMG 10:27
PROVIDERS: ATTEND Nurse Practitioner Adult Health
DX: M25.552 Pain in left hip (principal)
CPT/HCPCS: 73502; G0463

== ENCOUNTER → 2021-01-01 | Outpatient (CLI) | payer OTHER ==
--- NOTE | 2021-01-01 10:01 | REP ---
INDICATION: ABNORMAL FINDING OF LUNG FIELD. COMPARISON: 06/28/2020, 12/07/2019, 10/20/2018. TECHNIQUE: Noncontrast scanning through the chest with coronal and sagittal reconstructions provided. FINDINGS: The lung ramires are well inflated. There are curvilinear fibrotic changes in the periphery of the lingula which are stable. There also lower lobe curvilinear subpleural fibrotic changes and rounded opacity peripherally unchanged consistent with fibrosis and rounded atelectasis. That focus is unchanged. In the right lower lobe there is lateral basal segment fibrotic change which appears stable. There also some linear fibrotic changes in the right middle lobe the lung base. Some cylindrical bronchiectatic changes present in both lower lobes to a lesser extent in the upper lobes. No definite pleural effusion, acute infiltrate, new nodule or lung mass. No calcified pleural plaque. Heart size not grossly enlarged there are coronary artery calcifications. The aorta is calcified at the arch without aneurysm. No pathologic sized mediastinal, hilar, axillary or supraclavicular adenopathy. Bone windows show degenerative changes throughout the spine without destructive lesion or compression deformity. Sternum is dual segmented as anatomic variation. Clavicles, humeral heads, ribs and scapulae show no gross fracture there are degenerative changes at the glenohumeral joint bilaterally The upper abdomen shows that portion of liver, spleen, gallbladder and pancreas unremarkable none are seen in their entirety no hiatal hernia. Prior gastric bypass again seen. Upper poles of kidneys without stones. Adrenal glands normal IMPRESSION: 1. Chronic fibrotic changes in the bilateral lung ramires greatest in the bases and with a curvilinear subpleural fibrotic change in the left lower lobe with rounded atelectasis peripherally. This is larger than the fibrotic changes in the left lower lobe. Other areas of scattered fibrotic change in the right middle lobe and lingula, cylindrical bronchiectatic change, calcified aorta and coronary arteries but no aneurysm, adenopathy or other acute mediastinal abnormality. 2. Degenerative changes spine and shoulders. All of this stable. No new or acute finding. 3. Prior gastric bypass surgery. <Electronically signed by Prasad Pham > 01/01/21 [id number]
== END ==
LOC: M PLAIMG 08:12
PROVIDERS: ATTEND Physician Assistant
DX: R91.8 Other nonspecific abnormal finding of lung field (principal); Z98.84 Bariatric surgery status; J84.10 Pulmonary fibrosis, unspecified; J98.11 Atelectasis; M19.011 Primary osteoarthritis, right shoulder; M19.012 Primary osteoarthritis, left shoulder

== ENCOUNTER → 2021-01-25 | Outpatient (CLI) | payer OTHER | LOC: M PAIN 09:45 | PROVIDERS: ATTEND Anesthesiology | DX: M54.16 Radiculopathy, lumbar region (principal); M54.2 Cervicalgia; M54.50 Low back pain, unspecified; E11.9 Type 2 diabetes mellitus without complications; G47.30 Sleep apnea, unspecified; J44.9 Chronic obstructive pulmonary disease, unspecified; F17.210 Nicotine dependence, cigarettes, uncomplicated; Z86.59 Personal history of other mental and behavioral disorders; Z98.84 Bariatric surgery status; Z88.5 Allergy status to narcotic agent; Z91.09 Other allergy status, other than to drugs and biological substances; E66.01 Morbid (severe) obesity due to excess calories; Z68.41 Body mass index [BMI] 40.0-44.9, adult; Z79.899 Other long term (current) drug therapy ==

== ENCOUNTER → 2021-03-12 | Outpatient (CLI) | payer OTHER | LOC: M PLAIMG 10:15 | PROVIDERS: ATTEND Anesthesiology | DX: M51.16 Intervertebral disc disorders with radiculopathy, lumbar region (principal); M47.26 Other spondylosis with radiculopathy, lumbar region ==

== ENCOUNTER → 2021-03-15 | Outpatient (CLI) | payer OTHER ==
[2021-03-15 13:07] LABS: BASO # 0.1 10^3/uL (0.0-0.2); BASO % 0.5 % (0.0-1.0); EOS # 0.1 10^3/uL (0.0-0.5); HEMATOCRIT 42.7 % (42.0-52.0); HEMOGLOBIN 14.5 g/dl (13.5-17.5); LYMPH # 3.1 10^3/uL (1.5-5.0); LYMPH % 23.9 % (24.0-44.0); MEAN CORPUSCULAR HEMOGLOBIN 31.6 pg (27.0-33.0); MONO # 1.3 10^3/uL (0.0-0.8); MONO % 9.8 % (2.0-8.0); NEUTROPHILS # 8.3 10^3/uL (1.5-8.5); NEUTROPHILS % 64.3 % (36.0-66.0); PLATELET COUNT, AUTOMATED 295 10^3/uL (150-450); RED BLOOD COUNT 4.59 10^6/uL (4.30-6.10); WHITE BLOOD COUNT 12.9 10^3/uL (4.0-10.0)
[2021-03-15 14:11] LABS: ERYTHROCYTE SEDIMENTATION RATE 27 mm/hr (0-20)
== END ==
LOC: M RAD 11:56
PROVIDERS: ATTEND Physician Assistant
DX: L02.413 Cutaneous abscess of right upper limb (principal)
CPT/HCPCS: 36415; 76882; 85025; 85652; 86140; G0463

== ENCOUNTER → 2021-03-28 | Outpatient (CLI) | payer OTHER, MEDICARE | LOC: M PAIN 09:00 | PROVIDERS: ATTEND Anesthesiology | DX: M51.17 Intervertebral disc disorders with radiculopathy, lumbosacral region (principal); M47.817 Spondylosis without myelopathy or radiculopathy, lumbosacral region; G89.29 Other chronic pain; E11.9 Type 2 diabetes mellitus without complications; G47.30 Sleep apnea, unspecified; F17.210 Nicotine dependence, cigarettes, uncomplicated; Z98.84 Bariatric surgery status; Z86.59 Personal history of other mental and behavioral disorders; Z88.5 Allergy status to narcotic agent; Z91.09 Other allergy status, other than to drugs and biological substances; E66.01 Morbid (severe) obesity due to excess calories; Z68.41 Body mass index [BMI] 40.0-44.9, adult; Z79.899 Other long term (current) drug therapy ==

== ENCOUNTER → 2021-04-02 | Outpatient (CLI) | payer OTHER, MEDICAID | LOC: M RAD 09:47 | PROVIDERS: ATTEND Nurse Practitioner Adult Health | DX: L02.413 Cutaneous abscess of right upper limb (principal); M79.601 Pain in right arm ==

== ENCOUNTER → 2021-04-26 | Outpatient (CLI) | payer OTHER, MEDICAID ==
[2021-04-26 14:52] LABS: ALBUMIN 3.3 GM/DL (3.2-5.2); ALT/SGPT 32 U/L (12-78); BILIRUBIN,TOTAL 0.4 MG/DL (0.2-1.0); BLOOD UREA NITROGEN 8 MG/DL (7-18); CALCIUM LEVEL 9.3 MG/DL (8.5-10.1); CARBON DIOXIDE LEVEL 32 MEQ/L (21-32); CHLORIDE LEVEL 106 MEQ/L (98-107); CHOLESTEROL LEVEL 102 MG/DL (<200); CREATININE FOR GFR 0.74 MG/DL (0.70-1.30); GLOMERULAR FILTRATION RATE > 60.0 (>56); GLUCOSE, FASTING 96 MG/DL (70-100); HDL CHOLESTEROL 31 MG/DL (>40); LDL CHOLESTEROL 53 MG/DL (<100); NON-HDL-C 71 MG/DL; POTASSIUM SERUM 3.6 MEQ/L (3.5-5.1); SODIUM LEVEL 142 MEQ/L (136-145); TOTAL PROTEIN 6.6 GM/DL (6.4-8.2); TRIGLYCERIDES LEVEL 92 MG/DL (<150)
[2021-04-26 14:57] LABS: TOTAL 25(OH) VITAMIN D 40.1 NG/ML (30.0-100.0); VITAMIN B12 LEVEL > 2000 PG/ML (247-911)
[2021-04-26 14:58] LABS: HEMOGLOBIN A1c 5.5 %
== END ==
LOC: M PLALAB 08:06
PROVIDERS: ATTEND Nurse Practitioner Adult Health
DX: E78.5 Hyperlipidemia, unspecified (principal); E11.9 Type 2 diabetes mellitus without complications; Z98.890 Other specified postprocedural states; Z79.899 Other long term (current) drug therapy

== ENCOUNTER → 2021-07-15 | Outpatient (CLI) | payer OTHER, MEDICAID | LOC: M LABSMTC 11:00 | PROVIDERS: ATTEND Anesthesiology | DX: Z01.812 Encounter for preprocedural laboratory examination (principal); Z20.822 Contact with and (suspected) exposure to COVID-19 ==

== ENCOUNTER → 2021-10-16 | Outpatient (CLI) | payer OTHER, MEDICAID | LOC: M LABSMTC 09:17 | PROVIDERS: ATTEND Anesthesiology | DX: Z01.818 Encounter for other preprocedural examination (principal); Z11.52 Encounter for screening for COVID-19 ==

== ENCOUNTER → 2021-11-21 | Outpatient (CLI) | payer OTHER, MEDICAID, MEDICARE ==
[~2021-11-21] MED LIST changes: +LISI5TAB11 PO; +MULT120T PO
== END ==
LOC: M LABSMTC 09:28
PROVIDERS: ATTEND Anesthesiology
DX: Z01.812 Encounter for preprocedural laboratory examination (principal); Z20.822 Contact with and (suspected) exposure to COVID-19

== ENCOUNTER 2021-11-26 06:39 | Day surgery (SDC) | payer OTHER, MEDICAID ==
[~2021-11-26] VITALS: Ht 182.9 cm; Wt 123.6 kg
[~2021-11-26 06:39] MED LIST changes: +NS 1,000 ML IV ONE
[2021-11-26] MEDS ORDERED: LIDOCAINE 2% 100MG/5ML SDV (FOR ANES.) As Ordered ONE (07:36)
[2021-11-26] MEDS ORDERED: propofoL 200 MG/20 ML VIAL As Ordered ONE ×2 (07:36→07:53)
[2021-11-26] MEDS ORDERED: GLUCAGON INJ 1MG VIAL As Ordered ONE (07:42)
[2021-11-26 08:12] VITALS: BP 130/60
== END 2021-11-26 08:29 | disposition home or self-care (01) ==
LOC: M OPP 06:39
PROVIDERS: ATTEND Internal Medicine Gastroenterology
DX: Z12.11 Encounter for screening for malignant neoplasm of colon (principal); Z86.010 Personal history of colon polyps; Z80.0 Family history of malignant neoplasm of digestive organs; D12.4 Benign neoplasm of descending colon; D12.5 Benign neoplasm of sigmoid colon; K57.30 Diverticulosis of large intestine without perforation or abscess without bleeding; Z79.02 Long term (current) use of antithrombotics/antiplatelets; Z79.899 Other long term (current) drug therapy; Z79.891 Long term (current) use of opiate analgesic; Z88.5 Allergy status to narcotic agent; Z91.018 Allergy to other foods; Z98.84 Bariatric surgery status; G47.30 Sleep apnea, unspecified; J44.9 Chronic obstructive pulmonary disease, unspecified; E11.9 Type 2 diabetes mellitus without complications; I51.9 Heart disease, unspecified
CPT/HCPCS: 45385; 88305; J1610

== ENCOUNTER → 2022-01-20 | Outpatient (CLI) | payer MEDICARE, MEDICAID ==
[~2022-01-20] MED LIST changes: -NS 1,000 ML IV ONE
[2022-01-20 11:07] LABS: HEMATOCRIT 41.1 % (42.0-52.0); HEMOGLOBIN 13.3 g/dl (13.5-17.5); MEAN CORPUSCULAR HGB CONC 32.4 g/dl (32.0-36.5); MEAN CORPUSCULAR VOLUME 98.8 fl (80.0-96.0); PLATELET COUNT, AUTOMATED 270 10^3/uL (150-450); RED BLOOD COUNT 4.16 10^6/uL (4.30-6.10); WHITE BLOOD COUNT 8.3 10^3/uL (4.0-10.0)
[2022-01-20 13:28] LABS: CHLORIDE LEVEL 103 MMOL/L (98-107); SODIUM LEVEL 140 MMOL/L (136-145)
[2022-01-20 13:29] LABS: ALBUMIN 2.8 G/DL (3.2-5.2); CARBON DIOXIDE LEVEL 30 MMOL/L (20-31)
[2022-01-20 13:32] LABS: GLUCOSE, FASTING 82 MG/DL (60-100)
[2022-01-20 13:34] LABS: BLOOD UREA NITROGEN 8 MG/DL (9-23); CALCIUM LEVEL 8.3 MG/DL (8.5-10.1); TRIGLYCERIDES LEVEL 46 MG/DL (<150)
[2022-01-20 13:35] LABS: ALKALINE PHOSPHATASE 145 U/L (46-116); AST/SGOT 36 U/L (<34); HDL CHOLESTEROL 31.2 MG/DL (>40); MAGNESIUM LEVEL 1.8 MG/DL (1.8-2.4)
[2022-01-20 13:36] LABS: ALT/SGPT 41 U/L (7.0-40); BILIRUBIN,TOTAL 0.3 MG/DL (0.3-1.2); IRON (FE) 57 UG/DL (65-175); PERCENT SATURATION 20.4 % (19.7-50.0); TOTAL IRON BINDING CAPACITY 279 UG/DL (250-425); TOTAL PROTEIN 5.6 G/DL (5.7-8.2)
[2022-01-20 13:37] LABS: CHOLESTEROL LEVEL 75 MG/DL (<200); GLOMERULAR FILTRATION RATE > 60.0 (>56); LDL CHOLESTEROL 34.6 MG/DL (<100); NON-HDL-C 44 MG/DL
[2022-01-20 13:38] LABS: FERRITIN 116.8 NG/ML (10.5-307.3)
[2022-01-20 13:39] LABS: VITAMIN B12 LEVEL 903 PG/ML (211-911)
[2022-01-20 14:00] LABS: HEMOGLOBIN A1c 4.9 % (4.0-6.0)
== END ==
LOC: M LAB 10:31
PROVIDERS: ATTEND Nurse Practitioner Adult Health
DX: E11.9 Type 2 diabetes mellitus without complications (principal); Z98.84 Bariatric surgery status; E78.5 Hyperlipidemia, unspecified; D64.9 Anemia, unspecified; R25.2 Cramp and spasm

== ENCOUNTER → 2022-01-20 | Outpatient (CLI) | payer MEDICARE, MEDICAID | LOC: M RAD 09:06 | PROVIDERS: ATTEND Physician Assistant | DX: Z12.2 Encounter for screening for malignant neoplasm of respiratory organs (principal); F17.218 Nicotine dependence, cigarettes, with other nicotine-induced disorders; E11.9 Type 2 diabetes mellitus without complications; Z98.84 Bariatric surgery status; E78.5 Hyperlipidemia, unspecified; D64.9 Anemia, unspecified; R25.2 Cramp and spasm ==

== ENCOUNTER → 2022-01-22 | Outpatient (CLI) | payer MEDICARE, MEDICAID | LOC: M WHC 11:31 | PROVIDERS: ATTEND Nurse Practitioner Adult Health | DX: L03.115 Cellulitis of right lower limb (principal); R25.2 Cramp and spasm; M79.661 Pain in right lower leg ==

== ENCOUNTER → 2022-08-14 | Outpatient (CLI) | payer OTHER, MEDICAID ==
[~2022-08-14] MED LIST changes: +FLUT50SP17; -FLUTISP; -K-TA10TA PO; +POTA-164 PO
[2022-08-14 14:29] LABS: ALBUMIN 3.3 G/DL (3.2-5.2); ALKALINE PHOSPHATASE 115 U/L (46-116); ALT/SGPT 26 U/L (7.0-40); AST/SGOT 13 U/L (<34); BILIRUBIN,TOTAL 0.3 MG/DL (0.3-1.2); BLOOD UREA NITROGEN 10 MG/DL (9-23); CALCIUM LEVEL 8.5 MG/DL (8.5-10.1); CARBON DIOXIDE LEVEL 31 MMOL/L (20-31); CHLORIDE LEVEL 108 MMOL/L (98-107); CHOLESTEROL LEVEL 110 MG/DL (<200); CHOLESTEROL RISK RATIO 3.25 (<5); GLOMERULAR FILTRATION RATE > 60.0 (>56); GLUCOSE, FASTING 100 MG/DL (60-100); HDL CHOLESTEROL 33.8 MG/DL (>40); NON-HDL-C 76.2 MG/DL; POTASSIUM SERUM 4.8 MMOL/L (3.5-5.1); SODIUM LEVEL 141 MMOL/L (136-145); TOTAL PROTEIN 5.9 G/DL (5.7-8.2); TRIGLYCERIDES LEVEL 76 MG/DL (<150)
[2022-08-14 14:31] LABS: THYROID STIMULATING HORMONE 1.831 uIU/ML (0.55-4.78)
[2022-08-14 14:46] LABS: HEMOGLOBIN A1c 5.1 % (4.0-6.0)
== END ==
LOC: M PLALAB 09:11
PROVIDERS: ATTEND Nurse Practitioner Adult Health
DX: E11.42 Type 2 diabetes mellitus with diabetic polyneuropathy (principal)

== ENCOUNTER → 2022-12-22 | Outpatient (CLI) | payer OTHER, MEDICAID ==
[~2022-12-22] MED LIST changes: -AMIT25TA17 PO; +AMIT25TA19 PO; -MAXA10TA15 PO; +RIZA10TA66 PO
[2022-12-22 15:57] LABS: HEMATOCRIT 46.5 % (42.0-52.0); HEMOGLOBIN 15.3 g/dl (13.5-17.5); MEAN CORPUSCULAR HEMOGLOBIN 31.5 pg (27.0-33.0); MEAN CORPUSCULAR HGB CONC 32.9 g/dl (32.0-36.5); MEAN CORPUSCULAR VOLUME 95.9 fl (80.0-96.0); PLATELET COUNT, AUTOMATED 302 10^3/uL (150-450); RED BLOOD COUNT 4.85 10^6/uL (4.30-6.10); WHITE BLOOD COUNT 9.4 10^3/uL (4.0-10.0)
[2022-12-22 16:31] LABS: ALBUMIN 3.6 G/DL (3.2-5.2); ALKALINE PHOSPHATASE 115 U/L (46-116); ALT/SGPT 19 U/L (7.0-40); AST/SGOT 18 U/L (<34); BILIRUBIN,TOTAL 0.5 MG/DL (0.3-1.2); BLOOD UREA NITROGEN 8 MG/DL (9-23); CALCIUM LEVEL 9.6 MG/DL (8.5-10.1); CARBON DIOXIDE LEVEL 30 MMOL/L (20-31); CHLORIDE LEVEL 105 MMOL/L (98-107); CHOLESTEROL LEVEL 116 MG/DL (<200); CHOLESTEROL RISK RATIO 3.36 (<5); CREATININE FOR GFR 0.79 MG/DL (0.70-1.30); GLOMERULAR FILTRATION RATE > 60.0 (>56); GLUCOSE, FASTING 88 MG/DL (60-100); HDL CHOLESTEROL 34.5 MG/DL (>40); LDL CHOLESTEROL 63.9 MG/DL (<100); NON-HDL-C 81.5 MG/DL; POTASSIUM SERUM 4.4 MMOL/L (3.5-5.1); SODIUM LEVEL 142 MMOL/L (136-145); TOTAL PROTEIN 6.7 G/DL (5.7-8.2); TRIGLYCERIDES LEVEL 88 MG/DL (<150)
[2022-12-22 16:33] LABS: FERRITIN 38.4 NG/ML (10.5-307.3); VITAMIN B12 LEVEL > 2000 PG/ML (211-911)
[2022-12-22 16:44] LABS: HEMOGLOBIN A1c 4.6 % (4.0-6.0)
== END ==
LOC: M PLALAB 13:07
PROVIDERS: ATTEND Nurse Practitioner Adult Health
DX: E11.42 Type 2 diabetes mellitus with diabetic polyneuropathy (principal); Z98.84 Bariatric surgery status; Z79.899 Other long term (current) drug therapy

== ENCOUNTER → 2023-03-27 | Outpatient (CLI) | payer OTHER, MEDICAID ==
[~2023-03-27] MED LIST changes: -FLUT50SP17; +FLUTISP
== END ==
LOC: M PLAIMG 10:13
PROVIDERS: ATTEND Nurse Practitioner Adult Health
DX: I50.9 Heart failure, unspecified (principal); I08.1 Rheumatic disorders of both mitral and tricuspid valves

== ENCOUNTER → 2023-04-13 | Outpatient (CLI) | payer OTHER, MEDICAID | LOC: M RAD 11:31 | PROVIDERS: ATTEND Physician Assistant | DX: F17.218 Nicotine dependence, cigarettes, with other nicotine-induced disorders (principal); Z12.2 Encounter for screening for malignant neoplasm of respiratory organs ==

== ENCOUNTER → 2023-06-23 | Outpatient (CLI) | payer OTHER, MEDICAID ==
[2023-06-23 14:08] LABS: HEMATOCRIT 47.2 % (42.0-52.0); HEMOGLOBIN 15.7 g/dl (13.5-17.5); MEAN CORPUSCULAR HEMOGLOBIN 32.9 pg (27.0-33.0); MEAN CORPUSCULAR HGB CONC 33.3 g/dl (32.0-36.5); PLATELET COUNT, AUTOMATED 312 10^3/uL (150-450); RED BLOOD COUNT 4.77 10^6/uL (4.30-6.10); WHITE BLOOD COUNT 10.1 10^3/uL (4.0-10.0)
[2023-06-23 14:28] LABS: ALBUMIN 3.2 G/DL (3.2-5.2); ALKALINE PHOSPHATASE 129 U/L (46-116); ALT/SGPT 31 U/L (7.0-40); AST/SGOT 21 U/L (<34); BILIRUBIN,TOTAL 0.4 MG/DL (0.3-1.2); BLOOD UREA NITROGEN 10 MG/DL (9-23); CALCIUM LEVEL 9.3 MG/DL (8.5-10.1); CARBON DIOXIDE LEVEL 30 MMOL/L (20-31); CHLORIDE LEVEL 104 MMOL/L (98-107); CREATININE FOR GFR 0.82 MG/DL (0.70-1.30); GLOMERULAR FILTRATION RATE > 60.0 (>56); GLUCOSE, FASTING 78 MG/DL (60-100); POTASSIUM SERUM 4.6 MMOL/L (3.5-5.1); SODIUM LEVEL 137 MMOL/L (136-145); TOTAL PROTEIN 5.9 G/DL (5.7-8.2)
[2023-06-23 14:31] LABS: VITAMIN B12 LEVEL 1085 PG/ML (211-911)
== END ==
LOC: M PLALAB 09:26
PROVIDERS: ATTEND Nurse Practitioner Adult Health
DX: E11.42 Type 2 diabetes mellitus with diabetic polyneuropathy (principal); Z98.84 Bariatric surgery status

== ENCOUNTER → 2023-09-23 | Outpatient (REF) | payer OTHER, MEDICAID | LOC: M SFHCPLAZ 12:10 | PROVIDERS: ATTEND Nurse Practitioner Adult Health | DX: R09.81 Nasal congestion (principal) ==

== ENCOUNTER 2023-10-15 18:42 | Inpatient (IN) | payer OTHER, MEDICAID ==
[~2023-10-15] VITALS: Ht 182.9 cm; Wt 114.5 kg
[~2023-10-15 18:42] MED LIST changes: -ALBU8.5H IH; +ALBU8.5H INH
[2023-10-16 00:20] LABS: BASO # 0.1 10^3/uL (0.0-0.2); BASO % 0.7 % (0.0-1.0); EOS # 0.4 10^3/uL (0.0-0.5); EOS % 2.3 % (0.0-3.0); HEMOGLOBIN 14.2 g/dl (13.5-17.5); LYMPH # 2.2 10^3/uL (1.5-5.0); LYMPH % 13.5 % (24.0-44.0); MEAN CORPUSCULAR HEMOGLOBIN 32.9 pg (27.0-33.0); MEAN CORPUSCULAR HGB CONC 34.6 g/dl (32.0-36.5); MEAN CORPUSCULAR VOLUME 94.9 fl (80.0-96.0); MONO # 1.3 10^3/uL (0.0-0.8); MONO % 8.4 % (2.0-8.0); NEUTROPHILS # 11.5 10^3/uL (1.5-8.5); NEUTROPHILS % 71.7 % (36.0-66.0); PLATELET COUNT, AUTOMATED 263 10^3/uL (150-450); RED BLOOD COUNT 4.32 10^6/uL (4.30-6.10)
[2023-10-16 00:32] LABS: CPK CREATINE PHOSPHOKINASE 77 U/L (46-171)
[2023-10-16 00:33] LABS: ALBUMIN 2.4 G/DL (3.2-5.2); ALKALINE PHOSPHATASE 150 U/L (46-116); ALT/SGPT 39 U/L (7.0-40); AST/SGOT 27 U/L (<34); BILIRUBIN,DIRECT 0.7 MG/DL (<0.4); BILIRUBIN,TOTAL 1.3 MG/DL (0.3-1.2); BLOOD UREA NITROGEN 11 MG/DL (9-23); CALCIUM LEVEL 8.5 MG/DL (8.5-10.1); CARBON DIOXIDE LEVEL 29 MMOL/L (20-31); CHLORIDE LEVEL 102 MMOL/L (98-107); CK-MB VALUE MASS 2.8 NG/ML (<3.6); CREATININE FOR GFR 0.95 MG/DL (0.70-1.30); GLOMERULAR FILTRATION RATE > 60.0 (>56); GLUCOSE, FASTING 104 MG/DL (60-100); MB/CK RELATIVE INDEX 3.63 (< OR =4); POTASSIUM SERUM 3.7 MMOL/L (3.5-5.1); SODIUM LEVEL 133 MMOL/L (136-145); TOTAL PROTEIN 5.6 G/DL (5.7-8.2)
[2023-10-16 00:36] LABS: THYROXINE (T4) 10.2 UG/DL (4.5-10.9)
[2023-10-16 00:37] LABS: THYROID STIMULATING HORMONE 2.056 uIU/ML (0.55-4.78)
[2023-10-16] MEDS ORDERED: ISOVUE-370 76% 100ML VIAL As Ordered ONE (02:26)
[2023-10-16] MEDS: IPRATROPIUM 0.5MG/ALBUTEROL 2.5MG INH SOL UD 3ML (DUONEB) NEB ONE (03:13)
[2023-10-16] MEDS ORDERED: HEPARIN SOD (PORCINE) 5000UNITS/ML 1ML VIAL/SYRINGE IV PRN ×2 (03:20→05:50)
[2023-10-16 03:21] LABS: PROCALCITONIN 0.11 ng/ml
[2023-10-16] MEDS: HEPARIN SOD (PORCINE) 5000UNITS/ML 1ML VIAL/SYRINGE IV ONE (03:53)
[2023-10-16] MEDS: HEPARIN DRIP 25,000 UNITS in IV 1 EA IV SCH ×2 (03:55→20:32)
[2023-10-16] MEDS ORDERED: B-121TAB3 PO (05:12)
[2023-10-16] MEDS ORDERED: FURO20TA2 PO (05:12)
[2023-10-16] MEDS ORDERED: CALCTAB54 PO (05:12)
[2023-10-16] MEDS ORDERED: POTA10CA70 PO (05:14)
[2023-10-16] MEDS ORDERED: MAGN500T12 PO (05:14)
[2023-10-16] MEDS ORDERED: HOME MED LIST COMPLETE! XX SCH (05:15)
[2023-10-16] MEDS ORDERED: ACETAMINOPHEN TAB 650MG DOSE (2X325MG) PO PRN (05:40)
[2023-10-16] MEDS ORDERED: MOM 30ML SUSPENSION UDC PO PRN (05:40)
[2023-10-16] MEDS ORDERED: ALBUTEROL 90 MCG/ACT 8GM HFA INHALER INH PRN (06:25)
[2023-10-16 06:40] LABS: HEMATOCRIT 44.3 % (42.0-52.0); HEMOGLOBIN 15.4 g/dl (13.5-17.5); MEAN CORPUSCULAR HGB CONC 34.8 g/dl (32.0-36.5); MEAN CORPUSCULAR VOLUME 94.9 fl (80.0-96.0); PLATELET COUNT, AUTOMATED 276 10^3/uL (150-450); RED BLOOD COUNT 4.67 10^6/uL (4.30-6.10); WHITE BLOOD COUNT 16.1 10^3/uL (4.0-10.0)
[2023-10-16 06:49] LABS: ERYTHROCYTE SEDIMENTATION RATE 18 mm/hr (0-20)
[2023-10-16 07:17] LABS: ALBUMIN 2.5 G/DL (3.2-5.2); ALKALINE PHOSPHATASE 161 U/L (46-116); ALT/SGPT 35 U/L (7.0-40); AST/SGOT 29 U/L (<34); BILIRUBIN,TOTAL 1.5 MG/DL (0.3-1.2); BLOOD UREA NITROGEN 9 MG/DL (9-23); CALCIUM LEVEL 8.6 MG/DL (8.5-10.1); CARBON DIOXIDE LEVEL 26 MMOL/L (20-31); CHLORIDE LEVEL 104 MMOL/L (98-107); CREATININE FOR GFR 0.86 MG/DL (0.70-1.30); GLOMERULAR FILTRATION RATE > 60.0 (>56); GLUCOSE, FASTING 102 MG/DL (60-100); POTASSIUM SERUM 3.6 MMOL/L (3.5-5.1); SODIUM LEVEL 135 MMOL/L (136-145); TOTAL PROTEIN 5.9 G/DL (5.7-8.2)
[2023-10-16] MEDS: POTASSIUM CHLORIDE 10MEQ SR TABLET PO SCH (07:20)
[2023-10-16] MEDS: CYANOCOBALAMIN 500 MCG TAB PO SCH (07:20)
[2023-10-16] MEDS: PREGABALIN 100 MG CAP (LYRICA) PO SCH (07:20)
[2023-10-16] MEDS: OMEPRAZOLE 20MG CAP PO SCH (07:20)
[2023-10-16] MEDS: NS 1,000 ML IV SCH ×3 (07:21→16:40)
[2023-10-16] MEDS: ADVAIR HFA 230/21MCG INHALER INH SCH (07:27)
[2023-10-16] MEDS ORDERED: lisinopriL 5 MG TAB PO SCH (09:00)
[2023-10-16] MEDS ORDERED: FUROSEMIDE 20 MG TAB PO SCH (09:00)
[2023-10-16] MEDS ORDERED: DEXTROSE 50% 50ML SYRINGE IV PRN (11:50)
[2023-10-16] MEDS ORDERED: GLUCOSE 4 GM CHEW PO PRN (11:50)
[2023-10-16] MEDS ORDERED: GLUCAGON INJ 1MG VIAL SC PRN (11:50)
[2023-10-16] MEDS: INSULIN LISPRO (NovoLOG) PER UNIT SC SCH (12:09)
[2023-10-16] MEDS ORDERED: ISOVUE-300 61% 100ML VIAL As Ordered ONE (14:19)
[2023-10-16] MEDS ORDERED: LIDOCAINE 1% MDV 20ML VIAL As Ordered ONE (14:19)
[2023-10-16] MEDS ORDERED: fentaNYL 100 MCG/2 ML INJECTION As Ordered ONE (14:45)
[2023-10-16] MEDS ORDERED: MIDAZOLAM INJ 2MG/2ML VIAL As Ordered ONE (14:46)
[2023-10-16] MEDS ORDERED: HEPARIN 1,000UNITS/ML 10ML VIAL (FOR RADIOLOGY & DIALYSIS ONLY) As Ordered ONE (14:46)
[2023-10-16] MEDS ORDERED: ONDANSETRON 4MG 2ML VIAL IV PRN (16:40)
[2023-10-16 17:34] VITALS: BP 144/78; O2SAT 94
[2023-10-16] MEDS: tiZANidine 4 MG TAB PO PRN (19:01)
[2023-10-16 20:00] VITALS: BP 92/56; TEMP 96.9; O2SAT 93
[2023-10-16] MEDS: SIMVASTATIN 10 MG TAB PO SCH (21:00)
[2023-10-16] MEDS ORDERED: INSULIN LISPRO (NovoLOG) PER UNIT SC SCH (21:00)
[2023-10-16 23:38] VITALS: BP 120/68; TEMP 97; O2SAT 96
[2023-10-17] VITALS (20 sets, daily range): BP systolic 127–145; BP diastolic 62–80; TEMP 96.6–98; O2SAT 88–97
[2023-10-17] MEDS: ACETAMINOPHEN *IV* 1,000 MG in IV 1 EA IV ONE (04:00)
[2023-10-17] MEDS: SCOPOLAMINE 1MG TRANSDERMAL PATCH TOP ONE (04:00)
[2023-10-17] MEDS: RAMELTEON 8 MG TAB (ROZEREM) PO ONE (05:51)
[2023-10-17 06:47] LABS: BASO # 0.1 10^3/uL (0.0-0.2); EOS # 0.5 10^3/uL (0.0-0.5); EOS % 4.3 % (0.0-3.0); HEMATOCRIT 37.1 % (42.0-52.0); LYMPH # 1.8 10^3/uL (1.5-5.0); LYMPH % 14.6 % (24.0-44.0); MEAN CORPUSCULAR HEMOGLOBIN 33.4 pg (27.0-33.0); MEAN CORPUSCULAR HGB CONC 35.3 g/dl (32.0-36.5); MEAN CORPUSCULAR VOLUME 94.6 fl (80.0-96.0); MONO # 0.9 10^3/uL (0.0-0.8); MONO % 7.6 % (2.0-8.0); NEUTROPHILS # 8.6 10^3/uL (1.5-8.5); NEUTROPHILS % 71.2 % (36.0-66.0); PLATELET COUNT, AUTOMATED 229 10^3/uL (150-450); RED BLOOD COUNT 3.92 10^6/uL (4.30-6.10)
[2023-10-17 06:48] LABS: HEMOGLOBIN 13.1 g/dl (13.5-17.5)
[2023-10-17 07:31] LABS: ALBUMIN 2.1 G/DL (3.2-5.2); ALKALINE PHOSPHATASE 125 U/L (46-116); ALT/SGPT 27 U/L (7.0-40); AST/SGOT 33 U/L (<34); BILIRUBIN,TOTAL 1.3 MG/DL (0.3-1.2); BLOOD UREA NITROGEN 9 MG/DL (9-23); CARBON DIOXIDE LEVEL 24 MMOL/L (20-31); CHLORIDE LEVEL 108 MMOL/L (98-107); CREATININE FOR GFR 0.75 MG/DL (0.70-1.30); GLOMERULAR FILTRATION RATE > 60.0 (>56); GLUCOSE, FASTING 96 MG/DL (60-100); POTASSIUM SERUM 3.9 MMOL/L (3.5-5.1); SODIUM LEVEL 137 MMOL/L (136-145)
[2023-10-17] MEDS: ENOXAPARIN 120MG/0.8ML SYRINGE SC SCH (17:13)
[2023-10-18] VITALS (10 sets, daily range): BP systolic 112–155; BP diastolic 55–73; TEMP 97.3–98; O2SAT 93–96
[2023-10-18 08:42] LABS: BASO # 0.1 10^3/uL (0.0-0.2); BASO % 1.1 % (0.0-1.0); EOS # 0.6 10^3/uL (0.0-0.5); EOS % 5.9 % (0.0-3.0); HEMATOCRIT 36.9 % (42.0-52.0); HEMOGLOBIN 12.5 g/dl (13.5-17.5); LYMPH # 1.6 10^3/uL (1.5-5.0); MEAN CORPUSCULAR HEMOGLOBIN 32.6 pg (27.0-33.0); MEAN CORPUSCULAR HGB CONC 33.9 g/dl (32.0-36.5); MEAN CORPUSCULAR VOLUME 96.3 fl (80.0-96.0); MONO # 0.6 10^3/uL (0.0-0.8); MONO % 6.6 % (2.0-8.0); NEUTROPHILS # 6.5 10^3/uL (1.5-8.5); NEUTROPHILS % 68.3 % (36.0-66.0); PLATELET COUNT, AUTOMATED 227 10^3/uL (150-450); RED BLOOD COUNT 3.83 10^6/uL (4.30-6.10); WHITE BLOOD COUNT 9.5 10^3/uL (4.0-10.0)
[2023-10-18 09:18] LABS: ALBUMIN 2.1 G/DL (3.2-5.2); ALKALINE PHOSPHATASE 115 U/L (46-116); ALT/SGPT 30 U/L (7.0-40); AST/SGOT 33 U/L (<34); BILIRUBIN,TOTAL 0.8 MG/DL (0.3-1.2); BLOOD UREA NITROGEN 8 MG/DL (9-23); CARBON DIOXIDE LEVEL 25 MMOL/L (20-31); CHLORIDE LEVEL 111 MMOL/L (98-107); CREATININE FOR GFR 0.81 MG/DL (0.70-1.30); GLOMERULAR FILTRATION RATE > 60.0 (>56); GLUCOSE, FASTING 88 MG/DL (60-100); MAGNESIUM LEVEL 1.8 MG/DL (1.8-2.4); POTASSIUM SERUM 3.9 MMOL/L (3.5-5.1); SODIUM LEVEL 139 MMOL/L (136-145)
[2023-10-18] MEDS ORDERED: LOVE0.01 SC (11:41)
[2023-10-19 04:20] VITALS: BP 142/68; TEMP 97.6; O2SAT 96
[2023-10-19 07:07] LABS: BASO # 0.1 10^3/uL (0.0-0.2); BASO % 1.2 % (0.0-1.0); EOS # 0.5 10^3/uL (0.0-0.5); EOS % 6.1 % (0.0-3.0); HEMATOCRIT 37.1 % (42.0-52.0); HEMOGLOBIN 12.2 g/dl (13.5-17.5); LYMPH # 1.7 10^3/uL (1.5-5.0); LYMPH % 19.5 % (24.0-44.0); MEAN CORPUSCULAR HEMOGLOBIN 32.4 pg (27.0-33.0); MEAN CORPUSCULAR HGB CONC 32.9 g/dl (32.0-36.5); MEAN CORPUSCULAR VOLUME 98.7 fl (80.0-96.0); MONO # 0.6 10^3/uL (0.0-0.8); MONO % 7.2 % (2.0-8.0); NEUTROPHILS # 5.4 10^3/uL (1.5-8.5); NEUTROPHILS % 64.3 % (36.0-66.0); PLATELET COUNT, AUTOMATED 208 10^3/uL (150-450); RED BLOOD COUNT 3.76 10^6/uL (4.30-6.10); WHITE BLOOD COUNT 8.5 10^3/uL (4.0-10.0)
[2023-10-19 07:40] LABS: BLOOD UREA NITROGEN 8 MG/DL (9-23); CARBON DIOXIDE LEVEL 25 MMOL/L (20-31); CHLORIDE LEVEL 110 MMOL/L (98-107); CREATININE FOR GFR 0.89 MG/DL (0.70-1.30); GLOMERULAR FILTRATION RATE > 60.0 (>56); GLUCOSE, FASTING 76 MG/DL (60-100); MAGNESIUM LEVEL 1.9 MG/DL (1.8-2.4); SODIUM LEVEL 138 MMOL/L (136-145)
[2023-10-19] MEDS ORDERED: DEXTROSE 50% 50ML SYRINGE As Ordered ONE (07:53)
[2023-10-19 08:30] VITALS: BP 136/66; TEMP 97.8; O2SAT 97
[2023-10-19 13:01] LABS: CARDIOLIPIN IGA ANTIBODY < 2.0 APL-U/mL (<20.0); CARDIOLIPIN IGG ANTIBODY < 2.0 GPL-U/mL (<20.0); CARDIOLIPIN IGM ANTIBODY < 2.0 MPL-U/mL (<20.0)
[2023-10-19 14:41] LABS: ANA SCREEN, IFA NEGATIVE (NEGATIVE)
[2023-10-19 16:07] LABS: HOMOCYST(E)INE SERUM 10.8 umol/L (<11.4)
[2023-10-19 16:42] LABS: SSA SJOGRENS A <1.0 NEG AI (<1.0 NEG); SSB SJOGRENS B <1.0 NEG AI (<1.0 NEG)
== END 2023-10-19 10:23 | disposition home or self-care (01) | DRG 164 ==
LOC: M ED 18:42 → M ED INP 10-16 05:39 → M PCU 10-16 17:28
PROVIDERS: ADMIT Student in an Organized Health Care Education/Training Program; ATTEND Student in an Organized Health Care Education/Training Program
PROC: 02CQ3ZZ Extirpation of Matter from Right Pulmonary Artery, Percutaneous Approach (ICD-10-PCS; 2023-10-16)
PROC: 02CR3ZZ Extirpation of Matter from Left Pulmonary Artery, Percutaneous Approach (ICD-10-PCS; principal; 2023-10-16 13:30)
PROC: B246ZZZ Ultrasonography of Right and Left Heart (ICD-10-PCS; 2023-10-17)
DX: I26.99 Other pulmonary embolism without acute cor pulmonale (principal); I50.32 Chronic diastolic (congestive) heart failure; I82.402 Acute embolism and thrombosis of unspecified deep veins of left lower extremity; I11.0 Hypertensive heart disease with heart failure; G47.33 Obstructive sleep apnea (adult) (pediatric); E11.42 Type 2 diabetes mellitus with diabetic polyneuropathy; J45.909 Unspecified asthma, uncomplicated; J44.9 Chronic obstructive pulmonary disease, unspecified; E78.5 Hyperlipidemia, unspecified; M19.90 Unspecified osteoarthritis, unspecified site; F32.A Depression, unspecified; E66.9 Obesity, unspecified; F41.9 Anxiety disorder, unspecified; G43.909 Migraine, unspecified, not intractable, without status migrainosus; F17.210 Nicotine dependence, cigarettes, uncomplicated; E53.8 Deficiency of other specified B group vitamins; G89.29 Other chronic pain; K21.9 Gastro-esophageal reflux disease without esophagitis; Z79.899 Other long term (current) drug therapy; Z88.5 Allergy status to narcotic agent; Z91.018 Allergy to other foods; Z98.84 Bariatric surgery status; Z86.711 Personal history of pulmonary embolism; Z71.6 Tobacco abuse counseling

== ENCOUNTER → 2023-10-21 | Outpatient (CLI) | payer OTHER, MEDICAID ==
[~2023-10-21] MED LIST changes: +B-121TAB3 PO; +CALCTAB54 PO; +FURO20TA2 PO; +HEPARIN 1,000UNITS/ML 10ML VIAL (FOR RADIOLOGY & DIALYSIS ONLY) As Ordered ONE; +ISOVUE-300 61% 100ML VIAL As Ordered ONE; +LIDOCAINE 1% MDV 20ML VIAL As Ordered ONE; +LOVE0.01 SC; +MAGN500T12 PO; +MIDAZOLAM INJ 2MG/2ML VIAL As Ordered ONE; +NS 1,000 ML IV SCH; +POTA10CA70 PO; +ceFAZolin 2 GM/D5W 50 ML IV BAG As Ordered ONE; +fentaNYL 100 MCG/2 ML INJECTION As Ordered ONE; +hydrALAZINE 20MG/ML 1ML VIAL As Ordered ONE
[2023-10-21 09:30] VITALS: TEMP 96.2
[2023-10-21 15:30] VITALS: BP 109/54; O2SAT 98
== END ==
LOC: M IRPRO 08:25
PROVIDERS: ATTEND Radiology Diagnostic Radiology
DX: I82.402 Acute embolism and thrombosis of unspecified deep veins of left lower extremity (principal)
CPT/HCPCS: 37187; 37248; 99152; 99153; C1757; C1769; C1894; J0360; J2250; J3010; Q9967

== ENCOUNTER → 2023-10-30 | Outpatient (REF) | payer OTHER, MEDICAID ==
[~2023-10-30] MED LIST changes: -HEPARIN 1,000UNITS/ML 10ML VIAL (FOR RADIOLOGY & DIALYSIS ONLY) As Ordered ONE; -ISOVUE-300 61% 100ML VIAL As Ordered ONE; -LIDOCAINE 1% MDV 20ML VIAL As Ordered ONE; -MIDAZOLAM INJ 2MG/2ML VIAL As Ordered ONE; -NS 1,000 ML IV SCH; -ceFAZolin 2 GM/D5W 50 ML IV BAG As Ordered ONE; -fentaNYL 100 MCG/2 ML INJECTION As Ordered ONE; -hydrALAZINE 20MG/ML 1ML VIAL As Ordered ONE
== END ==
LOC: M LABSMT 13:29
PROVIDERS: ATTEND Urology
DX: R39.198 Other difficulties with micturition (principal)

== ENCOUNTER → 2023-11-05 | Outpatient (CLI) | payer OTHER, MEDICAID ==
[~2023-11-05] MED LIST changes: +XARE20TA PO
== END ==
LOC: M RAD 09:34
PROVIDERS: ATTEND Radiology Diagnostic Radiology
DX: Z86.718 Personal history of other venous thrombosis and embolism (principal)

== ENCOUNTER → 2023-11-11 | Outpatient (CLI) | payer OTHER, MEDICAID | LOC: M LAB 13:38 | PROVIDERS: ATTEND Urology | DX: R39.198 Other difficulties with micturition (principal); Z12.5 Encounter for screening for malignant neoplasm of prostate | CPT/HCPCS: 36415; G0103 ==

== ENCOUNTER → 2024-01-04 | Outpatient (CLI) | payer MEDICARE, MEDICAID ==
[2024-01-04 13:24] LABS: BLOOD UREA NITROGEN 8 MG/DL (9-23); CREATININE FOR GFR 0.81 MG/DL (0.70-1.30); GLOMERULAR FILTRATION RATE > 60.0 (>56)
== END ==
LOC: M PLALAB 10:16
PROVIDERS: ATTEND Physician Assistant
DX: R91.8 Other nonspecific abnormal finding of lung field (principal)

== ENCOUNTER → 2024-01-06 | Outpatient (CLI) | payer MEDICARE, MEDICAID ==
[~2024-01-06] MED LIST changes: +ISOVUE-370 76% 100ML VIAL ONE
== END ==
LOC: M PLAIMG 10:48
PROVIDERS: ATTEND Physician Assistant
DX: R91.8 Other nonspecific abnormal finding of lung field (principal)
CPT/HCPCS: 71260; Q9967

== ENCOUNTER → 2024-05-09 | Outpatient (CLI) | payer MEDICARE, MEDICAID ==
[~2024-05-09] MED LIST changes: -ADV250INH INH; +ADVA1AER10 INH; +ADVA1AER9 INH; -ISOVUE-370 76% 100ML VIAL ONE
[2024-05-09 15:22] LABS: HEMOGLOBIN A1c 4.4 % (4.0-6.0)
[2024-05-09 15:35] LABS: FOLATE 4.4 NG/ML (>5.4)
[2024-05-10 23:32] LABS: T P ELECTROPHORESIS SO 5.6 g/dL (6.1-8.1)
== END ==
LOC: M PLALAB 10:49
PROVIDERS: ATTEND Psychiatry & Neurology Neurology
DX: E11.40 Type 2 diabetes mellitus with diabetic neuropathy, unspecified (principal); E53.8 Deficiency of other specified B group vitamins; E51.9 Thiamine deficiency, unspecified; E53.1 Pyridoxine deficiency; E56.0 Deficiency of vitamin E

== ENCOUNTER → 2024-06-20 | Outpatient (CLI) | payer MEDICARE, MEDICAID ==
[2024-06-20 14:00] LABS: BASO # 0.1 10^3/uL (0.0-0.2); BASO % 0.6 % (0.0-1.0); EOS # 0.1 10^3/uL (0.0-0.5); EOS % 1.2 % (0.0-3.0); HEMATOCRIT 42.3 % (42.0-52.0); HEMOGLOBIN 13.7 g/dl (13.5-17.5); LYMPH # 1.6 10^3/uL (1.5-5.0); LYMPH % 17.3 % (24.0-44.0); MEAN CORPUSCULAR HEMOGLOBIN 32.3 pg (27.0-33.0); MEAN CORPUSCULAR HGB CONC 32.4 g/dl (32.0-36.5); MEAN CORPUSCULAR VOLUME 99.8 fl (80.0-96.0); MONO # 0.8 10^3/uL (0.0-0.8); MONO % 8.6 % (2.0-8.0); NEUTROPHILS # 6.5 10^3/uL (1.5-8.5); NEUTROPHILS % 71.9 % (36.0-66.0); PLATELET COUNT, AUTOMATED 223 10^3/uL (150-450); RED BLOOD COUNT 4.24 10^6/uL (4.30-6.10)
[2024-06-20 14:16] LABS: HEMOGLOBIN A1c 4.7 % (4.0-6.0)
[2024-06-20 14:24] LABS: ALBUMIN 3.1 G/DL (3.2-5.2); ALKALINE PHOSPHATASE 127 U/L (40-129); ALT/SGPT 50 U/L (7.0-40); AST/SGOT 39 U/L (<34); BILIRUBIN,TOTAL 0.4 MG/DL (0.3-1.2); BLOOD UREA NITROGEN 7 MG/DL (9-23); CALCIUM LEVEL 8.7 MG/DL (8.5-10.1); CARBON DIOXIDE LEVEL 31 MMOL/L (20-31); CHLORIDE LEVEL 108 MMOL/L (98-107); CHOLESTEROL LEVEL 92 MG/DL (<200); CHOLESTEROL RISK RATIO 2.08 (<5); CREATININE FOR GFR 0.83 MG/DL (0.70-1.30); GLOMERULAR FILTRATION RATE > 90.0 (>56); GLUCOSE, FASTING 76 MG/DL (60-100); HDL CHOLESTEROL 44.1 MG/DL (>40); LDL CHOLESTEROL 39.1 MG/DL (<100); MAGNESIUM LEVEL 1.8 MG/DL (1.8-2.4); NON-HDL-C 47.9 MG/DL; POTASSIUM SERUM 4.4 MMOL/L (3.5-5.1); SODIUM LEVEL 145 MMOL/L (136-145); THYROID STIMULATING HORMONE 1.403 uIU/ML (0.55-4.78); TOTAL PROTEIN 5.8 G/DL (5.7-8.2); TRIGLYCERIDES LEVEL 44 MG/DL (<150)
[2024-06-21 15:17] LABS: LDL DIRECT 31 mg/dL (<100)
[2024-06-22 10:47] LABS: NT PRO BNP SO 365 pg/mL (<125)
== END ==
LOC: M PLALAB 11:29
PROVIDERS: ATTEND Internal Medicine Cardiovascular Disease
DX: I11.0 Hypertensive heart disease with heart failure (principal); I50.9 Heart failure, unspecified

== ENCOUNTER → 2024-10-31 | Outpatient (CLI) | payer MEDICARE, MEDICAID ==
[~2024-10-31] MED LIST changes: +AMIT10TA11 PO; -AMIT10TA7 PO; -VITA500T17 PO; +VITA500T8 PO
== END ==
LOC: M PLALAB 12:09
PROVIDERS: ATTEND Urology
DX: Z12.5 Encounter for screening for malignant neoplasm of prostate (principal)

== ENCOUNTER → 2024-10-31 | Outpatient (CLI) | payer MEDICARE, MEDICAID ==
[2024-10-31 16:11] LABS: CHOLESTEROL LEVEL 88.0 MG/DL (<200); CHOLESTEROL RISK RATIO 1.78 (<5); LDL CHOLESTEROL 29.0 MG/DL (<100); NON-HDL-C 38.6 MG/DL; TRIGLYCERIDES LEVEL 48.0 MG/DL (<150)
== END ==
LOC: M PLALAB 12:08
PROVIDERS: ATTEND Student in an Organized Health Care Education/Training Program
DX: Z00.00 Encounter for general adult medical examination without abnormal findings (principal); Z79.899 Other long term (current) drug therapy

== ENCOUNTER → 2024-12-05 | Outpatient (CLI) | payer MEDICARE, MEDICAID ==
[2024-12-05 14:04] LABS: BASO # 0.1 10^3/uL (0.0-0.2); BASO % 0.9 % (0.0-1.0); EOS # 0.1 10^3/uL (0.0-0.5); EOS % 2.5 % (0.0-3.0); LYMPH # 2.2 10^3/uL (1.5-5.0); LYMPH % 38.0 % (24.0-44.0); MONO # 0.6 10^3/uL (0.0-0.8); MONO % 10.4 % (2.0-8.0); NEUTROPHILS # 2.7 10^3/uL (1.5-8.5); NEUTROPHILS % 48.0 % (36.0-66.0); PLATELET COUNT, AUTOMATED 225 10^3/uL (150-450)
[2024-12-05 14:33] LABS: CALCIUM LEVEL 8.8 MG/DL (8.3-10.6); CARBON DIOXIDE LEVEL 31 MMOL/L (20-31); CHLORIDE LEVEL 107 MMOL/L (98-107); CREATININE FOR GFR 0.85 MG/DL (0.70-1.30); GLOMERULAR FILTRATION RATE > 90.0 (>49); POTASSIUM SERUM 4.8 MMOL/L (3.5-5.1); SODIUM LEVEL 144 MMOL/L (136-145)
== END ==
LOC: M PLALAB 09:44
PROVIDERS: ATTEND Internal Medicine Cardiovascular Disease
DX: I11.0 Hypertensive heart disease with heart failure (principal); I48.0 Paroxysmal atrial fibrillation; I50.9 Heart failure, unspecified

== ENCOUNTER → 2025-02-01 | Outpatient (CLI) | payer MEDICARE, MEDICAID | LOC: M RAD 06:25 | PROVIDERS: ATTEND Physician Assistant | DX: Z87.891 Personal history of nicotine dependence (principal) ==